=== PATIENT | male | born 1965 | race Caucasian/White ===

== ENCOUNTER 2020-02-05 01:50 | Emergency (ER) | payer MEDICAID ==
[~2020-02-05] VITALS: Ht 185.4 cm; Wt 113.0 kg
[~2020-02-05 01:50] MED LIST: ALBU8.5H8 INH; LOSA100T14 PO; LOSA50TA14 PO; MOME13HF INH; OMEP-110 PO; OMEP40CA42 PO
--- NOTE | 2020-02-05 02:08 | NUR ---
PT REPORTS SEVERE PAIN ON RIGHT GROIN, ALSO NUMBNESS AND TINGLING DOWN LEG AND BOTH FEET.
[2020-02-05] MEDS ORDERED: KETOROLAC 30 MG/1 ML ONE (02:15)
[2020-02-05] MEDS ORDERED: HYDROmorphone 1 MG/ML, 1ML INJ ONE ×2 (02:15→03:55)
[2020-02-05] MEDS ORDERED: ONDANSETRON 2MG/ML, 2ML ONE (02:15)
[2020-02-05 02:22] LABS: MEAN CORPUSCULAR HEMOGLOBIN 28.7 pg (27.5-34.5); MEAN CORPUSCULAR HGB CONC 33.6 g/dL (33.2-36.2); MEAN CORPUSCULAR VOLUME 85.6 fL (81-97); MEAN PLATELET VOLUME 7.3 fL (7.4-10.4); PLATELET COUNT 240 x10^3/uL (130-400); RED BLOOD COUNT 4.81 x10^6/uL (4.38-5.82); RED CELL DISTRIBUTION WIDTH 12.9 % (9.4-14.8)
[2020-02-05] MEDS: HYDROmorphone 1 MG/ML, 1ML INJ IVPush PRN ×2 (02:24→03:58)
[2020-02-05] MEDS ORDERED: SODIUM CHLORIDE FLUSH 10ML SYR IVF ONE (02:30)
[2020-02-05] MEDS ORDERED: KETOROLAC 30 MG/1 ML IVPush ONE (02:30)
[2020-02-05] MEDS ORDERED: ONDANSETRON 2MG/ML, 2ML IVPush ONE (02:30)
--- NOTE | 2020-02-05 02:30 | NUR ---
US AT BEDSIDE.
[2020-02-05 02:34] LABS: ALANINE AMINOTRANSFERASE 30 U/L (12-78); ALBUMIN 3.2 g/dL (3.4-5.0); ANION GAP 7 mmol/L (5-15); CALCIUM 8.5 mg/dL (8.5-10.1); CHLORIDE 104 mmol/L (98-107); CREATININE 1.28 mg/dL (0.7-1.3)
[2020-02-05 02:36] LABS: ALKALINE PHOSPHATASE 81 U/L (45-117); BILIRUBIN,TOTAL 0.8 mg/dL (0.2-1.0)
[2020-02-05 02:58] LABS: BASOPHILS # (AUTO) 0.01 x10^3/uL (0-0.1); BASOPHILS % (AUTO) 0 % (0-1); EOSINOPHILS # (AUTO) 0.06 x10^3/uL (0-0.4); EOSINOPHILS % (AUTO) 1 % (1-7); LYMPHOCYTES # (AUTO) 0.38 x10^3/uL (1-3.4); LYMPHOCYTES % (AUTO) 4 % (22-44); MD SCAN; MONOCYTES # (AUTO) 0.06 x10^3/uL (0.2-0.8); MONOCYTES % (AUTO) 1 % (2-9); NEUTROPHILS # (AUTO) 9.37 x10^3/uL (1.8-6.8); NEUTROPHILS % (AUTO) 95 % (42-75)
[2020-02-05] MEDS ORDERED: OMNIPAQUE 350 MG/ML, 100ML BOTTLE ONE (03:34)
[2020-02-05 03:50] VITALS: BP 143/78
--- NOTE | 2020-02-05 03:51 | NUR ---
PT REPORTS PAIN IN RIGHT LEG IS BACK.
== END 2020-02-05 05:10 | disposition home or self-care (01) ==
LOC: ED 02:31
DX: M79.651 Pain in right thigh (principal); I10 Essential (primary) hypertension; J44.9 Chronic obstructive pulmonary disease, unspecified
CPT/HCPCS: 36415; 75635; 80053; 85025; 93971; 96374; 96375; 96376; 99285; J1170; J1885; J2405; Q9967

== ENCOUNTER 2020-02-09 14:44 | Inpatient (IN) | payer MEDICAID ==
[~2020-02-09] VITALS: Ht 177.8 cm; Wt 104.0 kg
--- NOTE | 2020-02-09 14:44 | NUR ---
OLVIN FROM HOME C/O AMS & LETHARGY X4DAYS WORSENING TODAY WITH LABORED BREATHING PER GF, SHE ALSO REPORTS PT TAKES PAIN MEDS FOR L HIP PAIN R/T RECENT GLF; ORIENTED TO SELF & CITY ONLY; PIV, BG 283, NEB TX X1 BOOM TENDER; PT FOLLOWS COMANDS BUT REQUIRES FREQUENT REORIENTATION/REDIRECTION, TACHYPNEIC & TACHYCARDIC ON ARRIVAL; PT CHANGED INTO GOWN; CARDIAC, NIBP & SPO2 MONITORS IN PLACE.
[2020-02-09] MEDS ORDERED: KETORALAC (15:05)
[2020-02-09] MEDS ORDERED: IBUPROFEN (15:05)
[2020-02-09] MEDS ORDERED: FLEXERIL (15:05)
[2020-02-09] MEDS ORDERED: NORCO (15:05)
[2020-02-09] MEDS ORDERED: SODIUM CHLORIDE FLUSH 10ML SYR IVF ONE (15:30)
[2020-02-09] MEDS ORDERED: SODIUM CHLORIDE 0.9% 1,000ML IVBOLUS ONE ×2 (15:30→19:30)
[2020-02-09 15:59] LABS: MEAN CORPUSCULAR HEMOGLOBIN 28.7 pg (27.5-34.5); MEAN CORPUSCULAR HGB CONC 34.2 g/dL (33.2-36.2); MEAN CORPUSCULAR VOLUME 83.8 fL (81-97); MEAN PLATELET VOLUME 10.8 fL (7.4-10.4); PLATELET COUNT 50 x10^3/uL (130-400); RED BLOOD COUNT 4.98 x10^6/uL (4.38-5.82); RED CELL DISTRIBUTION WIDTH 14.3 % (9.4-14.8)
--- NOTE | 2020-02-09 15:59 | NUR ---
PT UPRIGHT ON GURNWY WITH EYES CLOSED BUT RESTLESS, FOLLOWS COMMANDS WITH MOD AMT REDIRECTION, AUDIBLE EXPIR WHEEZING & OCCAS LOOSE COUGH NOTED, CONTINUES TO BE TACHYPNEIC BUT VSS WITH NO RESP DISTRESS AT THIS TIME, IVF BOLUS INFUSING, AWAITING LAB RESULTS, NO VISITORS AT BS, NO COVID R/O AT THIS TIME PER DR KILPATRICK PT STATES HE'S BEEN RECENTLY TESTED TWICE WITH NEGATIVE RESULTS, COMFORT MEASURES PROVIDED, CALL LIGHT WITHIN REACH.
[2020-02-09 16:04] LABS: MD YES
--- NOTE | 2020-02-09 16:05 | NUR ---
UNABLE TO VOID AT THIS TIME DESPITE ATTEMPT.
[2020-02-09 16:09] LABS: ALBUMIN 1.8 g/dL (3.4-5.0); ANION GAP 17 mmol/L (5-15); CALCIUM 8.1 mg/dL (8.5-10.1); CHLORIDE 106 mmol/L (98-107); CREATININE 4.79 mg/dL (0.7-1.3)
[2020-02-09 16:10] LABS: SALICYLATE LEVEL < 1.7 mg/dL (2.8-20.0)
[2020-02-09 16:12] LABS: ALANINE AMINOTRANSFERASE 24 U/L (12-78); ALKALINE PHOSPHATASE 151 U/L (45-117); BILIRUBIN,TOTAL 1.4 mg/dL (0.2-1.0)
[2020-02-09] MEDS ORDERED: CEFTRIAXONE PMX 1GM/50ML 50 ML IVPB ONE (16:30)
[2020-02-09] MEDS ORDERED: AZITHROMYCIN 500 MG in SODIUM CHLORIDE 0.9% 250 ML IVPB ONE (16:30)
[2020-02-09] MEDS ORDERED: CEFTRIAXONE PMX 1GM/50ML 50 ML ONE (16:30)
[2020-02-09 16:45] LABS: BAND#(MANUAL) 3.73 x10^3/uL; BANDS%(MANUAL) 16 % (0-7); LYMPHS% (MANUAL) 6 % (22-44); METAMYELOCYTES# (MANUAL) 0.23 x10^3/uL (0-0); METAMYELOCYTES% (MANUAL) 1 % (0-1); MONOS#(MANUAL) 0.23 x10^3/uL (0.3-2.7); MONOS% (MANUAL) 1 % (2-9); MYELOCYTES# (MANUAL) 0.23 x10^3/uL (0-0); MYELOCYTES% (MANUAL) 1 % (0-0); NRBC % (MANUAL) 1 % (0-1); REACTIVE LYMPHS # (MANUAL) 0.47 x10^3/uL (0-0); REACTIVE LYMPHS % (MANUAL) 2 % (0-0); SEG#(MANUAL) 17.01 x10^3/uL (1.8-6.8); SEGS% (MANUAL) 73 % (42-75)
[2020-02-09 16:47] LABS: <RBC MORPHOLOGY> NORMAL
[2020-02-09 16:52] LABS: <PLATELET ESTIMATE> DECREASED; TOXIC GRAN 1+
[2020-02-09 16:54] LABS: <PLT MORPHOLOGY> NORMAL PLT MORPH
[2020-02-09] MEDS ORDERED: SODIUM BICARB 8.4%, 50ML SYRINGE IVPush ONE (17:00)
[2020-02-09] MEDS ORDERED: CALCIUM GLUCONATE 4.6 MEQ in SODIUM CHLORIDE 0.9% 90 ML IV ONE (17:00)
[2020-02-09 17:10] LABS: AMPHETAMINE SCREEN, URINE Negative (Negative); BARBITURATE SCREEN, URINE Negative (Negative); BENZODIAZEPINE SCREEN, URINE Negative (Negative); CANNABINOID SCREEN, URINE Negative (Negative); COCAINE SCREEN, URINE Negative (Negative); METHADONE SCREEN, URINE Negative (Negative); OPIATE SCREEN, URINE Positive (Negative)
[2020-02-09 17:42] LABS: INTERNATIONAL NORMALIZED RATIO 1.02 (0.93-1.1); PROTHROMBIN TIME 10.8 Seconds (9.6-11.5)
--- NOTE | 2020-02-09 17:55 | NUR ---
Pt to be admitted to CCU, room 546. Report called to Keira. Pt to CT then transfer to unit.
[2020-02-09] MEDS ORDERED: AMIODARONE 50 MG/ML, 3ML ONE (18:03)
[2020-02-09 18:05] LABS: HCT (SEDRATE) 42.1 % (39.2-51.8)
[2020-02-09 18:08] LABS: TROPONIN I 0.036 ng/mL (0.000-0.045)
[2020-02-09 18:09] LABS: D-DIMER (DIC) 3.69 ug/mlFEU (0.00-0.52); PROTIME 10.7 Seconds (9.6-11.5)
[2020-02-09] MEDS ORDERED: NOREPINEPHRINE 8 MG in SODIUM CHLORIDE 0.9% 242 ML IV PRN ×2 (18:11→19:00)
[2020-02-09] MEDS ORDERED: PROPOFOL 100 ML IV PRN (18:11)
[2020-02-09] MEDS ORDERED: SODIUM BICARBONATE 1 MEQ/ML, 50ML VIAL ONE (18:20)
[2020-02-09] MEDS ORDERED: MIDAZOLAM 1 MG/ML, 2ML IVPush PRN (18:30)
[2020-02-09] MEDS ORDERED: BISACODYL 10 MG SUPP PR PRN (18:30)
[2020-02-09] MEDS ORDERED: DEXTROSE 4 GM TAB.CHEW PO PRN (18:30)
[2020-02-09] MEDS ORDERED: DEXTROSE 50%, 50ML SYRINGE IVPush PRN (18:30)
[2020-02-09] MEDS: ALBUTEROL/IPRATROPIUM 2.5MG/0.5MG, 3 ML INLINE SCH ×2 (18:30→22:36)
[2020-02-09] MEDS ORDERED: SENNA 176 MG/5 ML ORAL SOL NG PRN (18:30)
[2020-02-09] MEDS ORDERED: ACETAMINOPHEN 650 MG SUPP PR PRN (18:30)
[2020-02-09] MEDS ORDERED: GLUCAGON 1 MG IM PRN (18:30)
[2020-02-09] MEDS ORDERED: SENNA/DOCUSATE TABLET NG PRN (18:30)
[2020-02-09] MEDS ORDERED: LIDOCAINE-MPF 1%, 2ML ENDO PRN (18:30)
[2020-02-09] MEDS ORDERED: PHARMACY MAY ADJ FOR RENAL FX MC SCH (18:30)
[2020-02-09 18:39] LABS: MICROSCOPIC INDICATED
[2020-02-09] MEDS ORDERED: FILTER 0.22 MICRON FOR AMIODARONE IV PRN (19:00)
[2020-02-09] MEDS ORDERED: AMIODARONE 150 MG in DEXTROSE 5% 100 ML IV ONE ×3 (19:00→22:00)
[2020-02-09] MEDS: SODIUM BICARBONATE 8.4% 150 MEQ in DEXTROSE 5% 1,000 ML IV SCH (19:25)
[2020-02-09] MEDS: AMIODARONE 450 MG in DEXTROSE 5% 241 ML IV PRN (19:27)
[2020-02-09] MEDS ORDERED: FILTER 0.22 MICRON IV PRN (19:30)
[2020-02-09] MEDS ORDERED: ETOMIDATE 20 MG/10 ML IVPush ONE (19:30)
[2020-02-09] MEDS ORDERED: MIDAZOLAM 1 MG/ML, 2ML IVPush ONE (19:30)
[2020-02-09] MEDS ORDERED: SODIUM BICARBONATE 1 MEQ/ML, 50ML VIAL IVPush ONE (19:30)
[2020-02-09] MEDS ORDERED: IPRATROPIUM 0.5 MG/2.5 ML INHA ONE (20:51)
[2020-02-09] MEDS: ACETAMINOPHEN 325 MG TABLET PO PRN (21:55)
[2020-02-09] MEDS ORDERED: MIDAZOLAM IN 0.9 % SOD.CHLORID 100 ML IV PRN (22:00)
[2020-02-09] MEDS ORDERED: MIDAZOLAM IV PRN (22:00)
[2020-02-09] MEDS ORDERED: SOD CHLORID IV PRN (22:00)
[2020-02-09] MEDS: METRONIDAZOLE PMX 500MG/100ML 100 ML IV SCH (22:02)
[2020-02-09] MEDS: SODIUM CHLORIDE FLUSH 10ML SYR IVF SCH (22:03)
[2020-02-09] MEDS: INSULIN LISPRO 100 UNITS/ML, PEN SQ-INSULIN SCH (22:08)
[2020-02-10 00:25] LABS: TROPONIN I 0.055 ng/mL (0.000-0.045)
[2020-02-10 00:26] LABS: MEAN CORPUSCULAR HEMOGLOBIN 28.4 pg (27.5-34.5); MEAN CORPUSCULAR HGB CONC 33.6 g/dL (33.2-36.2); MEAN CORPUSCULAR VOLUME 84.5 fL (81-97); MEAN PLATELET VOLUME 10.3 fL (7.4-10.4); RED BLOOD COUNT 4.91 x10^6/uL (4.38-5.82); RED CELL DISTRIBUTION WIDTH 14.3 % (9.4-14.8)
[2020-02-10 00:28] LABS: PLATELET COUNT 37 x10^3/uL (130-400)
[2020-02-10 00:54] LABS: ALANINE AMINOTRANSFERASE 25 U/L (12-78); ALBUMIN 1.7 g/dL (3.4-5.0); ANION GAP 12 mmol/L (5-15); CALCIUM 7.6 mg/dL (8.5-10.1); CHLORIDE 107 mmol/L (98-107); CREATININE 4.01 mg/dL (0.7-1.3)
[2020-02-10 00:56] LABS: ALKALINE PHOSPHATASE 206 U/L (45-117); BILIRUBIN,TOTAL 1.7 mg/dL (0.2-1.0); TOTAL PROTEIN 5.4 g/dL (6.4-8.2)
[2020-02-10 00:57] LABS: MD YES
[2020-02-10 00:59] LABS: <PLATELET ESTIMATE> DECREASED; <RBC MORPHOLOGY> NORMAL; BAND#(MANUAL) 0.98 x10^3/uL; BANDS%(MANUAL) 4 % (0-7); LYMPH#(MANUAL) 1.22 x10^3/uL (1-3.4); LYMPHS% (MANUAL) 5 % (22-44); NRBC % (MANUAL) 5 % (0-1); SEGS% (MANUAL) 91 % (42-75)
[2020-02-10 01:00] LABS: <PLT MORPHOLOGY> NORMAL PLT MORPH
[2020-02-10] MEDS ORDERED: PIPERACILLIN/TAZO/PMX 3.375GM 50 ML IV ONE (01:30)
[2020-02-10] MEDS: AMIODARONE 450 MG in DEXTROSE 5% 241 ML IV PRN ×2 (02:10→14:51)
[2020-02-10] MEDS: ACETAMINOPHEN 325 MG TABLET PO PRN ×2 (02:16→18:10)
[2020-02-10 02:25] VITALS: BP 94/48
[2020-02-10] MEDS: ALBUTEROL/IPRATROPIUM 2.5MG/0.5MG, 3 ML INLINE SCH ×6 (02:30→22:15)
[2020-02-10] MEDS: METRONIDAZOLE PMX 500MG/100ML 100 ML IV SCH (02:46)
[2020-02-10] MEDS: SODIUM BICARBONATE 8.4% 150 MEQ in DEXTROSE 5% 1,000 ML IV SCH ×2 (03:12→12:17)
[2020-02-10 05:10] LABS: ALANINE AMINOTRANSFERASE 26 U/L (12-78); ALBUMIN 1.5 g/dL (3.4-5.0); ANION GAP 15 mmol/L (5-15); CALCIUM 7.2 mg/dL (8.5-10.1); CHLORIDE 105 mmol/L (98-107); CREATININE 4.18 mg/dL (0.7-1.3); MEAN CORPUSCULAR HEMOGLOBIN 28.5 pg (27.5-34.5); RED BLOOD COUNT 4.66 x10^6/uL (4.38-5.82); RED CELL DISTRIBUTION WIDTH 14.8 % (9.4-14.8)
[2020-02-10 05:15] LABS: ALKALINE PHOSPHATASE 139 U/L (45-117); BILIRUBIN,TOTAL 2.4 mg/dL (0.2-1.0); TOTAL PROTEIN 5.1 g/dL (6.4-8.2); TROPONIN I 0.133 ng/mL (0.000-0.045)
[2020-02-10 05:59] LABS: MD YES; PLATELET COUNT 42 x10^3/uL (130-400)
[2020-02-10 06:00] LABS: BAND#(MANUAL) 1.15 x10^3/uL; BANDS%(MANUAL) 4 % (0-7)
[2020-02-10 06:01] LABS: TOXIC GRAN 1+
[2020-02-10 06:02] LABS: <PLATELET ESTIMATE> DECREASED; <RBC MORPHOLOGY> NORMAL; LARGE PLATELETS 1+; LYMPH#(MANUAL) 1.72 x10^3/uL (1-3.4); LYMPHS% (MANUAL) 6 % (22-44); MONOS#(MANUAL) 1.44 x10^3/uL (0.3-2.7); MONOS% (MANUAL) 5 % (2-9); SEGS% (MANUAL) 85 % (42-75)
[2020-02-10] MEDS: INSULIN LISPRO 100 UNITS/ML, PEN SQ-INSULIN SCH ×6 (06:27→22:47)
[2020-02-10] MEDS ORDERED: PIPERACILLIN/TAZO(ZOSYN) 2.25 GM in NS 50 ML IVPB SCH (08:30)
[2020-02-10] MEDS ORDERED: PIPERACILLIN/TAZO 0.75 GM in SODIUM CHLORIDE 0.9% 50 ML IV SCH (08:30)
[2020-02-10] MEDS: SODIUM CHLORIDE FLUSH 10ML SYR IVF SCH ×2 (08:31→21:18)
[2020-02-10] MEDS: SENNA/DOCUSATE TABLET PO SCH (08:31)
[2020-02-10] MEDS: PANTOPRAZOLE 40 MG IV IVPush SCH (08:31)
[2020-02-10] MEDS ORDERED: AZITHROMYCIN 500 MG in SODIUM CHLORIDE 0.9% 250 ML IV SCH (09:00)
[2020-02-10] MEDS: ALBUMIN HUMAN 25% 100 ML IV SCH ×3 (10:48→22:46)
--- NOTE | 2020-02-10 10:51 | NUR ---
TF GOAL: NEPRO @ 55ML/HR
[2020-02-10 11:16] LABS: TROPONIN I 0.071 ng/mL (0.000-0.045)
[2020-02-10] MEDS: FENTANYL PF 100 MCG/2ML IVPush PRN (12:31)
[2020-02-10] MEDS ORDERED: CEFTRIAXONE PMX 1GM/50ML 50 ML IV SCH (16:00)
[2020-02-10] MEDS ORDERED: HYDROCORTISONE 100 MG INJ. IVPush ONE (17:00)
[2020-02-10] MEDS ORDERED: HYDROCORTISONE 100 MG INJ. ONE (17:02)
[2020-02-10] MEDS ORDERED: VASOPRESSIN 20 UNIT in SODIUM CHLORIDE 0.9% 99 ML IV PRN (17:30)
[2020-02-10] MEDS ORDERED: OMNIPAQUE 350 MG/ML, 100ML BOTTLE ONE (18:05)
[2020-02-10] MEDS: PIPERACILLIN/TAZO(ZOSYN) 2.25 GM in NS 50 ML IVPB SCH (18:06)
[2020-02-10] MEDS: AZITHROMYCIN 500 MG in SODIUM CHLORIDE 0.9% 250 ML IV SCH (18:33)
[2020-02-10] MEDS: methylPREDNISolone SOD SUCC 125 MG/2 ML IV SCH (18:33)
[2020-02-10] MEDS ORDERED: IPRATROPIUM 0.5 MG/2.5 ML INHA ONE (18:41)
[2020-02-10 18:42] LABS: ALANINE AMINOTRANSFERASE 41 U/L (12-78); ALBUMIN 2.4 g/dL (3.4-5.0); ANION GAP 12 mmol/L (5-15); CALCIUM 7.6 mg/dL (8.5-10.1); CHLORIDE 103 mmol/L (98-107); CREATININE 3.16 mg/dL (0.7-1.3)
[2020-02-10 18:44] LABS: ALKALINE PHOSPHATASE 164 U/L (45-117); BILIRUBIN,TOTAL 2.6 mg/dL (0.2-1.0); TOTAL PROTEIN 5.6 g/dL (6.4-8.2)
[2020-02-10 18:58] LABS: MD YES; MEAN CORPUSCULAR HEMOGLOBIN 28.4 pg (27.5-34.5); MEAN CORPUSCULAR HGB CONC 33.7 g/dL (33.2-36.2); MEAN CORPUSCULAR VOLUME 84.2 fL (81-97); MEAN PLATELET VOLUME 9.7 fL (7.4-10.4); RED BLOOD COUNT 3.93 x10^6/uL (4.38-5.82); RED CELL DISTRIBUTION WIDTH 14.5 % (9.4-14.8)
[2020-02-10 19:00] LABS: PLATELET COUNT 37 x10^3/uL (130-400)
[2020-02-10] MEDS ORDERED: IPRATROPIUM 0.5 MG/2.5 ML INHA NPPB ONE (19:00)
[2020-02-10 19:03] LABS: BAND#(MANUAL) 3.47 x10^3/uL; BANDS%(MANUAL) 11 % (0-7); LYMPH#(MANUAL) 1.26 x10^3/uL (1-3.4); LYMPHS% (MANUAL) 4 % (22-44); MONOS#(MANUAL) 0.63 x10^3/uL (0.3-2.7); MONOS% (MANUAL) 2 % (2-9); NRBC % (MANUAL) 1 % (0-1); SEG#(MANUAL) 26.15 x10^3/uL (1.8-6.8); SEGS% (MANUAL) 83 % (42-75)
[2020-02-10 19:04] LABS: <PLATELET ESTIMATE> DECREASED; ANISOCYTOSIS 1+; POLYCHROMASIA 1+
[2020-02-10 19:05] LABS: <PLT MORPHOLOGY> NORMAL PLT MORPH; TOXIC GRAN 1+
[2020-02-10] MEDS ORDERED: HEPARIN 5,000 UNITS/ML, 1ML IV PRN (21:30)
[2020-02-10] MEDS ORDERED: HEPARIN 25,000 UNITS/250ML PMX 250 ML IV PRN (21:30)
[2020-02-10] MEDS ORDERED: HEPARIN 5,000 UNITS/ML, 1ML IV ONE (21:30)
[2020-02-11] MEDS: PIPERACILLIN/TAZO(ZOSYN) 2.25 GM in NS 50 ML IVPB SCH ×3 (00:40→18:25)
[2020-02-11] MEDS: methylPREDNISolone SOD SUCC 125 MG/2 ML IV SCH ×4 (00:42→18:36)
[2020-02-11] MEDS: ALBUTEROL/IPRATROPIUM 2.5MG/0.5MG, 3 ML INLINE SCH ×6 (02:15→22:21)
[2020-02-11] MEDS: FENTANYL PF 100 MCG/2ML IVPush PRN ×3 (02:39→14:34)
[2020-02-11 04:34] LABS: ALBUMIN 2.5 g/dL (3.4-5.0); ANION GAP 9 mmol/L (5-15); CALCIUM 7.5 mg/dL (8.5-10.1); CHLORIDE 107 mmol/L (98-107)
[2020-02-11 04:38] LABS: ALANINE AMINOTRANSFERASE 46 U/L (12-78); ALKALINE PHOSPHATASE 109 U/L (45-117); BILIRUBIN,TOTAL 2.2 mg/dL (0.2-1.0); TOTAL PROTEIN 5.8 g/dL (6.4-8.2)
[2020-02-11] MEDS: ALBUMIN HUMAN 25% 100 ML IV SCH (04:42)
[2020-02-11] MEDS: INSULIN LISPRO 100 UNITS/ML, PEN SQ-INSULIN SCH ×4 (04:43→12:00)
[2020-02-11 04:44] LABS: MEAN CORPUSCULAR HEMOGLOBIN 28.3 pg (27.5-34.5); MEAN CORPUSCULAR HGB CONC 33.8 g/dL (33.2-36.2); MEAN CORPUSCULAR VOLUME 83.6 fL (81-97); RED BLOOD COUNT 3.44 x10^6/uL (4.38-5.82); RED CELL DISTRIBUTION WIDTH 14.5 % (9.4-14.8)
[2020-02-11 05:47] LABS: MD YES
[2020-02-11 05:48] LABS: MEAN PLATELET VOLUME 9.6 fL (7.4-10.4)
[2020-02-11 05:49] LABS: PLATELET COUNT 47 x10^3/uL (130-400)
[2020-02-11 05:51] LABS: <RBC MORPHOLOGY> NORMAL; BAND#(MANUAL) 0.43 x10^3/uL; BANDS%(MANUAL) 2 % (0-7); LYMPH#(MANUAL) 2.14 x10^3/uL (1-3.4); LYMPHS% (MANUAL) 10 % (22-44); METAMYELOCYTES# (MANUAL) 0.21 x10^3/uL (0-0); METAMYELOCYTES% (MANUAL) 1 % (0-1); MONOS#(MANUAL) 0.21 x10^3/uL (0.3-2.7); MONOS% (MANUAL) 1 % (2-9); SEGS% (MANUAL) 86 % (42-75)
[2020-02-11 05:52] LABS: <PLATELET ESTIMATE> DECREASED; <PLT MORPHOLOGY> NORMAL PLT MORPH
[2020-02-11] MEDS: AMIODARONE 450 MG in DEXTROSE 5% 241 ML IV PRN ×2 (06:14→23:06)
[2020-02-11] MEDS: PANTOPRAZOLE 40 MG IV IVPush SCH (07:30)
[2020-02-11] MEDS: SODIUM CHLORIDE FLUSH 10ML SYR IVF SCH ×2 (08:19→21:12)
[2020-02-11] MEDS: SENNA/DOCUSATE TABLET PO SCH (08:20)
[2020-02-11] MEDS ORDERED: INSULIN GLARGINE 100 UNITS/ML, PEN SQ-INSULIN SCH (09:00)
[2020-02-11] MEDS ORDERED: RASBURICASE 6 MG in SODIUM CHLORIDE 0.9% 50 ML IV SCH (10:00)
[2020-02-11] MEDS ORDERED: RASBURICASE 6 MG in SODIUM CHLORIDE 0.9% 50 ML IV ONE (10:30)
[2020-02-11] MEDS ORDERED: LIDOCAINE 1%, 10ML ONE (11:00)
[2020-02-11] MEDS ORDERED: GADOTERATE 10 MMOL/20 ML SYR ONE (11:13)
[2020-02-11] MEDS ORDERED: VISIPAQUE 270 MG/ML, 50ML BOTTLE ONE (11:40)
[2020-02-11] MEDS ORDERED: INSULIN INFUSION FOR ICU PROTOCOL XX PRN (15:00)
[2020-02-11] MEDS: REGULAR INSULIN 100 UNITS in SODIUM CHLORIDE 0.9% 99 ML IV PRN (15:53)
[2020-02-11] MEDS ORDERED: MIDAZOLAM 1 MG/ML, 2ML ONE (16:46)
[2020-02-11] MEDS ORDERED: FENTANYL PF 100 MCG/2ML ONE (18:56)
[2020-02-11] MEDS: AZITHROMYCIN 500 MG in SODIUM CHLORIDE 0.9% 250 ML IV SCH (21:12)
[2020-02-12] MEDS: methylPREDNISolone SOD SUCC 125 MG/2 ML IV SCH ×2 (00:47→06:09)
[2020-02-12] MEDS: REGULAR INSULIN 100 UNITS in SODIUM CHLORIDE 0.9% 99 ML IV PRN (02:30)
[2020-02-12] MEDS: PIPERACILLIN/TAZO(ZOSYN) 2.25 GM in NS 50 ML IVPB SCH ×3 (02:34→20:32)
[2020-02-12] MEDS: ALBUTEROL/IPRATROPIUM 2.5MG/0.5MG, 3 ML INLINE SCH ×6 (02:43→22:35)
[2020-02-12 04:47] LABS: MEAN CORPUSCULAR HEMOGLOBIN 28.3 pg (27.5-34.5); MEAN CORPUSCULAR HGB CONC 33.4 g/dL (33.2-36.2); MEAN CORPUSCULAR VOLUME 84.5 fL (81-97); MEAN PLATELET VOLUME 8.9 fL (7.4-10.4); PLATELET COUNT 70 x10^3/uL (130-400); RED CELL DISTRIBUTION WIDTH 14.6 % (9.4-14.8)
[2020-02-12 04:50] LABS: ALANINE AMINOTRANSFERASE 48 U/L (12-78); ALBUMIN 2.4 g/dL (3.4-5.0); ANION GAP 11 mmol/L (5-15); CALCIUM 7.8 mg/dL (8.5-10.1); CHLORIDE 109 mmol/L (98-107); CREATININE 3.03 mg/dL (0.7-1.3); TRIGLYCERIDES 396 mg/dL (50-200)
[2020-02-12 04:53] LABS: ALKALINE PHOSPHATASE 108 U/L (45-117); BILIRUBIN,TOTAL 1.6 mg/dL (0.2-1.0); TOTAL PROTEIN 5.9 g/dL (6.4-8.2)
[2020-02-12 05:30] LABS: MD YES
[2020-02-12 05:33] LABS: BAND#(MANUAL) 0.88 x10^3/uL; BANDS%(MANUAL) 4 % (0-7); LYMPH#(MANUAL) 1.77 x10^3/uL (1-3.4); LYMPHS% (MANUAL) 8 % (22-44); METAMYELOCYTES# (MANUAL) 0.44 x10^3/uL (0-0); METAMYELOCYTES% (MANUAL) 2 % (0-1); MONOS#(MANUAL) 0.88 x10^3/uL (0.3-2.7); MONOS% (MANUAL) 4 % (2-9); MYELOCYTES# (MANUAL) 0.22 x10^3/uL (0-0); MYELOCYTES% (MANUAL) 1 % (0-0); NRBC % (MANUAL) 2 % (0-1); SEGS% (MANUAL) 81 % (42-75)
[2020-02-12 05:34] LABS: ANISOCYTOSIS 1+
[2020-02-12 05:35] LABS: POLYCHROMASIA 1+
[2020-02-12 05:36] LABS: <PLATELET ESTIMATE> DECREASED; <PLT MORPHOLOGY> NORMAL PLT MORPH; TOXIC GRAN 1+
[2020-02-12] MEDS: PANTOPRAZOLE 40 MG IV IVPush SCH (07:42)
[2020-02-12] MEDS: SODIUM CHLORIDE FLUSH 10ML SYR IVF SCH ×2 (07:43→21:05)
[2020-02-12] MEDS: SENNA/DOCUSATE TABLET PO SCH (07:43)
[2020-02-12] MEDS: FENTANYL PF 100 MCG/2ML IVPush PRN ×3 (09:57→19:21)
[2020-02-12] MEDS ORDERED: methylPREDNISolone SOD SUCC 125 MG/2 ML ONE (10:11)
[2020-02-12] MEDS: AMIODARONE 200 MG TABLET PO SCH ×2 (10:14→21:04)
[2020-02-12] MEDS ORDERED: methylPREDNISolone SOD SUCC 125 MG/2 ML IVPush ONE (10:30)
[2020-02-12] MEDS: DEXMEDETOMIDINE 400 MCG in SODIUM CHLORIDE 0.9% 96 ML IV PRN (11:05)
[2020-02-12] MEDS: INSULIN GLARGINE 100 UNITS/ML, PEN SQ-INSULIN SCH ×2 (16:03→21:01)
[2020-02-12] MEDS: INSULIN LISPRO 100 UNITS/ML, PEN SQ-INSULIN SCH ×2 (16:07→21:01)
[2020-02-12] MEDS: methylPREDNISolone SOD SUCC 40 MG/ML IV SCH ×2 (16:11→21:18)
[2020-02-12] MEDS: ACETAMINOPHEN 325 MG TABLET PO PRN (16:13)
[2020-02-12] MEDS: AZITHROMYCIN 500 MG in SODIUM CHLORIDE 0.9% 250 ML IV SCH (20:55)
[2020-02-13] MEDS: DEXMEDETOMIDINE 400 MCG in SODIUM CHLORIDE 0.9% 96 ML IV PRN ×3 (00:15→09:31)
[2020-02-13] MEDS: INSULIN LISPRO 100 UNITS/ML, PEN SQ-INSULIN SCH ×4 (03:06→21:00)
[2020-02-13 03:19] LABS: MD YES; MEAN CORPUSCULAR HEMOGLOBIN 28.7 pg (27.5-34.5); MEAN CORPUSCULAR HGB CONC 34.1 g/dL (33.2-36.2); MEAN CORPUSCULAR VOLUME 84.3 fL (81-97); MEAN PLATELET VOLUME 9.2 fL (7.4-10.4); PLATELET COUNT 80 x10^3/uL (130-400); RED BLOOD COUNT 2.88 x10^6/uL (4.38-5.82); RED CELL DISTRIBUTION WIDTH 14.5 % (9.4-14.8)
[2020-02-13 03:30] LABS: ANION GAP 10 mmol/L (5-15); CALCIUM 7.6 mg/dL (8.5-10.1); CHLORIDE 106 mmol/L (98-107)
[2020-02-13] MEDS: ALBUTEROL/IPRATROPIUM 2.5MG/0.5MG, 3 ML INLINE SCH ×5 (03:30→19:25)
[2020-02-13 03:33] LABS: ALANINE AMINOTRANSFERASE 44 U/L (12-78); ALKALINE PHOSPHATASE 90 U/L (45-117); ANISOCYTOSIS 1+; BAND#(MANUAL) 0.39 x10^3/uL; BANDS%(MANUAL) 2 % (0-7); BILIRUBIN,TOTAL 1.2 mg/dL (0.2-1.0); CREATININE 3.34 mg/dL (0.7-1.3); LYMPH#(MANUAL) 1.16 x10^3/uL (1-3.4); LYMPHS% (MANUAL) 6 % (22-44); MONOS#(MANUAL) 0.39 x10^3/uL (0.3-2.7); MONOS% (MANUAL) 2 % (2-9); POLYCHROMASIA 1+; SEG#(MANUAL) 17.37 x10^3/uL (1.8-6.8); SEGS% (MANUAL) 90 % (42-75); TOTAL PROTEIN 5.1 g/dL (6.4-8.2)
[2020-02-13 03:34] LABS: <PLATELET ESTIMATE> DECREASED; <PLT MORPHOLOGY> NORMAL PLT MORPH; TOXIC GRAN 1+
[2020-02-13] MEDS: PIPERACILLIN/TAZO(ZOSYN) 2.25 GM in NS 50 ML IVPB SCH ×3 (03:42→21:31)
[2020-02-13] MEDS: methylPREDNISolone SOD SUCC 40 MG/ML IV SCH ×3 (05:51→21:30)
[2020-02-13] MEDS: SENNA/DOCUSATE TABLET PO SCH (07:39)
[2020-02-13] MEDS: SODIUM CHLORIDE FLUSH 10ML SYR IVF SCH ×2 (09:00→20:28)
[2020-02-13] MEDS: PANTOPRAZOLE 40 MG IV IVPush SCH (09:15)
[2020-02-13] MEDS: AMIODARONE 200 MG TABLET PO SCH ×2 (09:16→20:28)
[2020-02-13] MEDS: INSULIN GLARGINE 100 UNITS/ML, PEN SQ-INSULIN SCH ×2 (09:19→21:30)
[2020-02-13] MEDS ORDERED: PIPERACILLIN/TAZO 0.75 GM in SODIUM CHLORIDE 0.9% 50 ML IV SCH (09:30)
[2020-02-13] MEDS: FENTANYL PF 100 MCG/2ML IVPush PRN (09:31)
[2020-02-13] MEDS ORDERED: DEXMEDETOMIDINE 1,000 MCG in SODIUM CHLORIDE 0.9% 240 ML IV PRN (12:00)
[2020-02-14] MEDS: ALBUTEROL/IPRATROPIUM 2.5MG/0.5MG, 3 ML INLINE SCH ×3 (00:20→07:12)
[2020-02-14] MEDS: FENTANYL PF 100 MCG/2ML IVPush PRN (00:30)
[2020-02-14 04:23] LABS: MEAN CORPUSCULAR HEMOGLOBIN 28.6 pg (27.5-34.5); MEAN CORPUSCULAR VOLUME 84.1 fL (81-97); PLATELET COUNT 128 x10^3/uL (130-400); RED BLOOD COUNT 2.93 x10^6/uL (4.38-5.82); RED CELL DISTRIBUTION WIDTH 14.1 % (9.4-14.8)
[2020-02-14 04:34] LABS: ALANINE AMINOTRANSFERASE 40 U/L (12-78); ALBUMIN 2.1 g/dL (3.4-5.0); ANION GAP 11 mmol/L (5-15); CALCIUM 7.6 mg/dL (8.5-10.1); CHLORIDE 105 mmol/L (98-107); CREATININE 2.52 mg/dL (0.7-1.3)
[2020-02-14 04:36] LABS: ALKALINE PHOSPHATASE 77 U/L (45-117); BILIRUBIN,TOTAL 1.3 mg/dL (0.2-1.0); TOTAL PROTEIN 5.5 g/dL (6.4-8.2)
[2020-02-14 05:42] LABS: MD YES
[2020-02-14 05:43] LABS: BAND#(MANUAL) 0.23 x10^3/uL; BANDS%(MANUAL) 1 % (0-7); LYMPH#(MANUAL) 0.45 x10^3/uL (1-3.4); LYMPHS% (MANUAL) 2 % (22-44); MONOS#(MANUAL) 0.23 x10^3/uL (0.3-2.7); MONOS% (MANUAL) 1 % (2-9); SEGS% (MANUAL) 96 % (42-75)
[2020-02-14 05:44] LABS: <PLATELET ESTIMATE> DECREASED; <PLT MORPHOLOGY> NORMAL PLT MORPH; PMNS WITH VACUOLES 1+; POLYCHROMASIA 1+; TOXIC GRAN 1+
[2020-02-14] MEDS: PIPERACILLIN/TAZO(ZOSYN) 2.25 GM in NS 50 ML IVPB SCH ×3 (05:58→22:32)
[2020-02-14] MEDS: methylPREDNISolone SOD SUCC 40 MG/ML IV SCH (05:58)
[2020-02-14] MEDS: INSULIN LISPRO 100 UNITS/ML, PEN SQ-INSULIN SCH ×4 (06:17→21:00)
[2020-02-14] MEDS ORDERED: FENTANYL PF 100 MCG/2ML ONE (07:50)
[2020-02-14] MEDS: SODIUM CHLORIDE FLUSH 10ML SYR IVF SCH ×2 (07:54→22:30)
[2020-02-14] MEDS: PANTOPRAZOLE 40 MG IV IVPush SCH (07:54)
[2020-02-14] MEDS ORDERED: FENTANYL PF 100 MCG/2ML IV ONE (08:00)
[2020-02-14] MEDS: AMIODARONE 200 MG TABLET PO SCH (08:04)
[2020-02-14] MEDS: SENNA/DOCUSATE TABLET PO SCH (08:05)
[2020-02-14] MEDS: OXYcodone IR 5MG TABLET PO PRN ×3 (08:05→18:24)
[2020-02-14] MEDS ORDERED: INSULIN GLARGINE 100 UNITS/ML, PEN SQ-INSULIN SCH (09:00)
[2020-02-14] MEDS: ACETAMINOPHEN 325 MG TABLET PO PRN ×2 (13:35→18:24)
[2020-02-14 14:00] VITALS: BP 137/65
[2020-02-14] MEDS: ALBUTEROL/IPRATROPIUM 2.5MG/0.5MG, 3 ML NPPB SCH ×2 (14:50→20:39)
[2020-02-14] MEDS ORDERED: MORPHINE SULFATE 4 MG/ML, 1ML ONE (14:51)
[2020-02-14] MEDS: MORPHINE SULFATE 4 MG/ML, 1ML IVPush PRN ×2 (14:56→22:28)
[2020-02-14] MEDS ORDERED: methylPREDNISolone SOD SUCC 40 MG/ML IV SCH (21:00)
[2020-02-14 22:00] VITALS: BP 118/74
[2020-02-14] MEDS: INSULIN GLARGINE 100 UNITS/ML, PEN SQ-INSULIN SCH (22:29)
[2020-02-15 02:39] VITALS: BP 120/82
[2020-02-15] MEDS: ALBUTEROL/IPRATROPIUM 2.5MG/0.5MG, 3 ML NPPB SCH ×4 (03:50→20:11)
[2020-02-15 04:46] VITALS: BP 117/69
[2020-02-15 05:41] LABS: ANION GAP 11 mmol/L (5-15); CALCIUM 7.9 mg/dL (8.5-10.1); CHLORIDE 102 mmol/L (98-107); CREATININE 1.58 mg/dL (0.7-1.3)
[2020-02-15 05:47] LABS: MEAN CORPUSCULAR HEMOGLOBIN 28.6 pg (27.5-34.5); MEAN CORPUSCULAR HGB CONC 33.8 g/dL (33.2-36.2); MEAN CORPUSCULAR VOLUME 84.7 fL (81-97); MEAN PLATELET VOLUME 9.2 fL (7.4-10.4); PLATELET COUNT 183 x10^3/uL (130-400); RED BLOOD COUNT 3.19 x10^6/uL (4.38-5.82); RED CELL DISTRIBUTION WIDTH 13.5 % (9.4-14.8)
[2020-02-15] MEDS: MORPHINE SULFATE 4 MG/ML, 1ML IVPush PRN ×2 (05:51→20:49)
[2020-02-15] MEDS: PIPERACILLIN/TAZO(ZOSYN) 2.25 GM in NS 50 ML IVPB SCH ×3 (05:51→22:39)
[2020-02-15 06:31] VITALS: BP 122/84
[2020-02-15] MEDS: INSULIN LISPRO 100 UNITS/ML, PEN SQ-INSULIN SCH ×4 (07:00→20:48)
[2020-02-15 07:07] LABS: MD YES
[2020-02-15 07:09] LABS: LYMPHS% (MANUAL) 3 % (22-44); METAMYELOCYTES# (MANUAL) 0.23 x10^3/uL (0-0); METAMYELOCYTES% (MANUAL) 1 % (0-1); MONOS#(MANUAL) 0.46 x10^3/uL (0.3-2.7); MONOS% (MANUAL) 2 % (2-9); SEG#(MANUAL) 21.81 x10^3/uL (1.8-6.8); SEGS% (MANUAL) 94 % (42-75); TOXIC GRAN 1+
[2020-02-15 07:10] LABS: POLYCHROMASIA 1+
[2020-02-15 07:12] LABS: <PLATELET ESTIMATE> ADEQUATE; <PLT MORPHOLOGY> NORMAL PLT MORPH
[2020-02-15] MEDS: AMIODARONE 200 MG TABLET PO SCH (08:57)
[2020-02-15] MEDS: PANTOPRAZOLE 40 MG IV IVPush SCH (08:57)
[2020-02-15] MEDS: INSULIN GLARGINE 100 UNITS/ML, PEN SQ-INSULIN SCH ×2 (08:58→20:49)
[2020-02-15] MEDS: SODIUM CHLORIDE FLUSH 10ML SYR IVF SCH ×2 (08:58→20:47)
[2020-02-15] MEDS: OXYcodone IR 5MG TABLET PO PRN (09:36)
[2020-02-15] MEDS: SENNA/DOCUSATE TABLET PO SCH (10:55)
[2020-02-15 18:29] VITALS: BP 96/63
[2020-02-16] MEDS: MORPHINE SULFATE 4 MG/ML, 1ML IVPush PRN ×3 (00:09→16:51)
[2020-02-16 01:52] VITALS: BP 101/66
[2020-02-16] MEDS: OXYcodone IR 5MG TABLET PO PRN ×3 (02:30→23:36)
[2020-02-16 05:23] LABS: MEAN CORPUSCULAR HEMOGLOBIN 28.6 pg (27.5-34.5); MEAN CORPUSCULAR HGB CONC 33.5 g/dL (33.2-36.2); MEAN CORPUSCULAR VOLUME 85.2 fL (81-97); MEAN PLATELET VOLUME 8.6 fL (7.4-10.4); PLATELET COUNT 284 x10^3/uL (130-400); RED BLOOD COUNT 3.11 x10^6/uL (4.38-5.82)
[2020-02-16 05:31] LABS: ALBUMIN 2.1 g/dL (3.4-5.0); CALCIUM 7.7 mg/dL (8.5-10.1); CHLORIDE 104 mmol/L (98-107)
[2020-02-16 05:40] LABS: ANION GAP 11 mmol/L (5-15); CREATININE 1.42 mg/dL (0.7-1.3)
[2020-02-16 05:41] LABS: ALANINE AMINOTRANSFERASE 138 U/L (12-78); ALKALINE PHOSPHATASE 90 U/L (45-117); BILIRUBIN,TOTAL 1.8 mg/dL (0.2-1.0); PREALBUMIN 21.1 mg/dL (20.0-40.0); TOTAL PROTEIN 5.8 g/dL (6.4-8.2)
[2020-02-16 05:48] LABS: BASOPHILS # (AUTO) 0.01 x10^3/uL (0-0.1); BASOPHILS % (AUTO) 0 % (0-1); EOSINOPHILS # (AUTO) 0.34 x10^3/uL (0-0.4); EOSINOPHILS % (AUTO) 2 % (1-7); LYMPHOCYTES # (AUTO) 1.03 x10^3/uL (1-3.4); LYMPHOCYTES % (AUTO) 5 % (22-44); MD SCAN; MONOCYTES # (AUTO) 0.24 x10^3/uL (0.2-0.8); MONOCYTES % (AUTO) 1 % (2-9); NEUTROPHILS # (AUTO) 19.15 x10^3/uL (1.8-6.8); NEUTROPHILS % (AUTO) 92 % (42-75)
[2020-02-16] MEDS ORDERED: PANTOPRAZOLE 40MG TABLET PO SCH (06:00)
[2020-02-16] MEDS: PIPERACILLIN/TAZO(ZOSYN) 2.25 GM in NS 50 ML IVPB SCH ×3 (06:09→22:21)
[2020-02-16 06:27] LABS: HCT (SEDRATE) 26.5 % (39.2-51.8)
[2020-02-16 06:28] VITALS: BP 128/82
[2020-02-16] MEDS: INSULIN LISPRO 100 UNITS/ML, PEN SQ-INSULIN SCH ×4 (07:00→21:14)
[2020-02-16] MEDS: SENNA/DOCUSATE TABLET PO SCH (09:00)
[2020-02-16] MEDS: ALBUTEROL/IPRATROPIUM 2.5MG/0.5MG, 3 ML NPPB SCH ×3 (09:00→21:37)
[2020-02-16] MEDS: AMIODARONE 200 MG TABLET PO SCH (09:09)
[2020-02-16] MEDS: INSULIN GLARGINE 100 UNITS/ML, PEN SQ-INSULIN SCH ×2 (09:10→21:14)
[2020-02-16] MEDS: SODIUM CHLORIDE FLUSH 10ML SYR IVF SCH ×2 (09:11→21:13)
[2020-02-16 13:31] VITALS: BP 125/76
[2020-02-16 18:58] VITALS: BP 120/73
[2020-02-17 01:06] VITALS: BP 118/76
[2020-02-17 05:45] LABS: MEAN CORPUSCULAR HEMOGLOBIN 28.9 pg (27.5-34.5); MEAN PLATELET VOLUME 8.5 fL (7.4-10.4); PLATELET COUNT 416 x10^3/uL (130-400); RED BLOOD COUNT 3.14 x10^6/uL (4.38-5.82); RED CELL DISTRIBUTION WIDTH 14.4 % (9.4-14.8)
[2020-02-17 05:47] LABS: ANION GAP 7 mmol/L (5-15); CALCIUM 8.2 mg/dL (8.5-10.1); CHLORIDE 106 mmol/L (98-107)
[2020-02-17] MEDS: PIPERACILLIN/TAZO(ZOSYN) 2.25 GM in NS 50 ML IVPB SCH ×3 (05:57→21:43)
[2020-02-17 06:08] LABS: MD YES
[2020-02-17 06:10] LABS: LYMPH#(MANUAL) 0.86 x10^3/uL (1-3.4); LYMPHS% (MANUAL) 4 % (22-44); MONOS#(MANUAL) 1.08 x10^3/uL (0.3-2.7); MONOS% (MANUAL) 5 % (2-9); SEG#(MANUAL) 19.57 x10^3/uL (1.8-6.8); SEGS% (MANUAL) 91 % (42-75)
[2020-02-17 06:11] LABS: POLYCHROMASIA 1+
[2020-02-17 06:12] LABS: <PLATELET ESTIMATE> INCREASED; <PLT MORPHOLOGY> NORMAL PLT MORPH
[2020-02-17] MEDS: INSULIN LISPRO 100 UNITS/ML, PEN SQ-INSULIN SCH ×4 (07:00→20:04)
[2020-02-17] MEDS: SENNA/DOCUSATE TABLET PO SCH (07:51)
[2020-02-17] MEDS: AMIODARONE 200 MG TABLET PO SCH (07:57)
[2020-02-17 08:00] VITALS: BP 130/82
[2020-02-17] MEDS: SODIUM CHLORIDE FLUSH 10ML SYR IVF SCH ×2 (08:03→20:57)
[2020-02-17] MEDS: INSULIN GLARGINE 100 UNITS/ML, PEN SQ-INSULIN SCH ×2 (08:03→20:58)
[2020-02-17] MEDS: ALBUTEROL/IPRATROPIUM 2.5MG/0.5MG, 3 ML NPPB SCH ×3 (08:28→19:00)
[2020-02-17 10:51] VITALS: BP 109/59
[2020-02-17] MEDS: OXYcodone IR 5MG TABLET PO PRN (12:55)
[2020-02-17 13:49] VITALS: BP 110/68
[2020-02-17] MEDS: MORPHINE SULFATE 4 MG/ML, 1ML IVPush PRN (16:58)
[2020-02-17 19:33] VITALS: BP 116/76
[2020-02-18 00:10] VITALS: BP 122/56
[2020-02-18] MEDS: ALBUTEROL/IPRATROPIUM 2.5MG/0.5MG, 3 ML NPPB SCH ×4 (02:15→18:51)
[2020-02-18 05:36] LABS: MEAN CORPUSCULAR HEMOGLOBIN 29.5 pg (27.5-34.5); MEAN CORPUSCULAR HGB CONC 34.5 g/dL (33.2-36.2); MEAN CORPUSCULAR VOLUME 85.4 fL (81-97); MEAN PLATELET VOLUME 7.9 fL (7.4-10.4); PLATELET COUNT 518 x10^3/uL (130-400); RED BLOOD COUNT 2.94 x10^6/uL (4.38-5.82); RED CELL DISTRIBUTION WIDTH 14.6 % (9.4-14.8)
[2020-02-18] MEDS: PIPERACILLIN/TAZO(ZOSYN) 2.25 GM in NS 50 ML IVPB SCH ×2 (05:45→13:03)
[2020-02-18 06:19] LABS: MD YES
[2020-02-18 06:20] LABS: <PLATELET ESTIMATE> INCREASED; <PLT MORPHOLOGY> NORMAL PLT MORPH; EOS#(MANUAL) 0.22 x10^3/uL (0.0-0.4); EOS% (MANUAL) 1 % (1-7); LYMPH#(MANUAL) 1.12 x10^3/uL (1-3.4); LYMPHS% (MANUAL) 5 % (22-44); MYELOCYTES# (MANUAL) 0.22 x10^3/uL (0-0); MYELOCYTES% (MANUAL) 1 % (0-0); POLYCHROMASIA 1+; SEG#(MANUAL) 20.74 x10^3/uL (1.8-6.8); SEGS% (MANUAL) 93 % (42-75)
[2020-02-18 07:18] VITALS: BP 109/71
[2020-02-18 08:01] LABS: ANION GAP 11 mmol/L (5-15); CALCIUM 8.2 mg/dL (8.5-10.1); CHLORIDE 105 mmol/L (98-107); CREATININE 1.32 mg/dL (0.7-1.3)
[2020-02-18] MEDS: INSULIN LISPRO 100 UNITS/ML, PEN SQ-INSULIN SCH ×4 (08:12→19:52)
[2020-02-18] MEDS: AMIODARONE 200 MG TABLET PO SCH (08:50)
[2020-02-18] MEDS: INSULIN GLARGINE 100 UNITS/ML, PEN SQ-INSULIN SCH ×2 (08:51→20:18)
[2020-02-18] MEDS: SODIUM CHLORIDE FLUSH 10ML SYR IVF SCH ×2 (08:51→20:18)
[2020-02-18] MEDS: SENNA/DOCUSATE TABLET PO SCH (08:52)
[2020-02-18 12:05] VITALS: BP 121/76
[2020-02-18] MEDS ORDERED: CALCIUM CARBONATE 500 MG TAB.CHEW PO PRN (13:00)
[2020-02-18] MEDS ORDERED: GADOTERATE 10 MMOL/20 ML VIAL ONE (15:39)
[2020-02-18] MEDS ORDERED: GADOTERATE 2.5 MMOL/5 ML VIAL ONE (15:39)
[2020-02-18] MEDS: PIPERACILLIN/TAZO/PMX 4.5GM 100 ML IV SCH (18:15)
[2020-02-18] MEDS: OXYcodone IR 5MG TABLET PO PRN (18:24)
[2020-02-18 19:53] VITALS: BP 122/77
[2020-02-19] MEDS: PIPERACILLIN/TAZO/PMX 4.5GM 100 ML IV SCH ×3 (02:07→18:21)
[2020-02-19 02:11] VITALS: BP 165/83
[2020-02-19 03:36] VITALS: BP 111/70
[2020-02-19 05:30] LABS: MEAN CORPUSCULAR HEMOGLOBIN 28.9 pg (27.5-34.5); MEAN CORPUSCULAR HGB CONC 33.5 g/dL (33.2-36.2); MEAN CORPUSCULAR VOLUME 86.2 fL (81-97); MEAN PLATELET VOLUME 7.9 fL (7.4-10.4); PLATELET COUNT 642 x10^3/uL (130-400); RED BLOOD COUNT 2.97 x10^6/uL (4.38-5.82); RED CELL DISTRIBUTION WIDTH 14.9 % (9.4-14.8)
[2020-02-19] MEDS: OMEPRAZOLE 20 MG CAPSULE.DR PO SCH (05:45)
[2020-02-19 06:10] LABS: BASOPHILS # (AUTO) 0.01 x10^3/uL (0-0.1); BASOPHILS % (AUTO) 0 % (0-1); EOSINOPHILS # (AUTO) 0.13 x10^3/uL (0-0.4); EOSINOPHILS % (AUTO) 1 % (1-7); LYMPHOCYTES # (AUTO) 0.63 x10^3/uL (1-3.4); LYMPHOCYTES % (AUTO) 3 % (22-44); MD SCAN; MONOCYTES # (AUTO) 0.88 x10^3/uL (0.2-0.8); MONOCYTES % (AUTO) 5 % (2-9); NEUTROPHILS # (AUTO) 18.07 x10^3/uL (1.8-6.8); NEUTROPHILS % (AUTO) 92 % (42-75)
[2020-02-19 06:46] VITALS: BP 133/83
[2020-02-19] MEDS: INSULIN LISPRO 100 UNITS/ML, PEN SQ-INSULIN SCH ×4 (07:28→20:33)
[2020-02-19] MEDS: SENNA/DOCUSATE TABLET PO SCH (08:16)
[2020-02-19] MEDS: AMIODARONE 200 MG TABLET PO SCH (08:16)
[2020-02-19] MEDS: INSULIN GLARGINE 100 UNITS/ML, PEN SQ-INSULIN SCH (08:17)
[2020-02-19] MEDS: SODIUM CHLORIDE FLUSH 10ML SYR IVF SCH ×2 (08:17→20:43)
[2020-02-19] MEDS: ALBUTEROL/IPRATROPIUM 2.5MG/0.5MG, 3 ML NPPB SCH ×2 (08:55→18:30)
[2020-02-19 12:45] VITALS: BP 128/71
[2020-02-19] MEDS: OXYcodone IR 5MG TABLET PO PRN ×3 (13:33→23:19)
[2020-02-19] MEDS ORDERED: LIDOCAINE 1%, 10ML ONE (15:08)
[2020-02-19] MEDS ORDERED: ALBUTEROL/IPRATROPIUM 2.5MG/0.5MG, 3 ML ONE (18:37)
[2020-02-19 19:26] VITALS: BP 108/61
[2020-02-20 00:52] VITALS: BP 104/69
[2020-02-20] MEDS: PIPERACILLIN/TAZO/PMX 4.5GM 100 ML IV SCH ×3 (02:08→17:31)
[2020-02-20] MEDS: OXYcodone IR 5MG TABLET PO PRN ×3 (05:49→20:12)
[2020-02-20] MEDS: OMEPRAZOLE 20 MG CAPSULE.DR PO SCH (05:49)
[2020-02-20] MEDS: LACTULOSE 20 GM/30 ML UDC NG PRN (05:50)
[2020-02-20 06:52] VITALS: BP 116/73
[2020-02-20] MEDS: INSULIN LISPRO 100 UNITS/ML, PEN SQ-INSULIN SCH ×4 (07:00→20:08)
[2020-02-20 07:32] LABS: MEAN CORPUSCULAR HEMOGLOBIN 28.5 pg (27.5-34.5); MEAN CORPUSCULAR HGB CONC 32.8 g/dL (33.2-36.2); MEAN CORPUSCULAR VOLUME 86.9 fL (81-97); MEAN PLATELET VOLUME 6.9 fL (7.4-10.4); PLATELET COUNT 720 x10^3/uL (130-400); RED CELL DISTRIBUTION WIDTH 14.9 % (9.4-14.8)
[2020-02-20] MEDS: AMIODARONE 200 MG TABLET PO SCH (08:36)
[2020-02-20] MEDS: SENNA/DOCUSATE TABLET PO SCH (08:36)
[2020-02-20] MEDS: SODIUM CHLORIDE FLUSH 10ML SYR IVF SCH ×2 (08:37→20:12)
[2020-02-20 08:46] LABS: BASOPHILS # (AUTO) 0.02 x10^3/uL (0-0.1); BASOPHILS % (AUTO) 0 % (0-1); EOSINOPHILS # (AUTO) 0.13 x10^3/uL (0-0.4); EOSINOPHILS % (AUTO) 1 % (1-7); LYMPHOCYTES # (AUTO) 0.53 x10^3/uL (1-3.4); LYMPHOCYTES % (AUTO) 4 % (22-44); MD SCAN; MONOCYTES # (AUTO) 0.83 x10^3/uL (0.2-0.8); MONOCYTES % (AUTO) 6 % (2-9); NEUTROPHILS # (AUTO) 12.07 x10^3/uL (1.8-6.8); NEUTROPHILS % (AUTO) 89 % (42-75)
[2020-02-20] MEDS: ALBUTEROL/IPRATROPIUM 2.5MG/0.5MG, 3 ML NPPB SCH ×3 (09:00→19:38)
[2020-02-20 13:00] VITALS: BP 113/76
[2020-02-20] MEDS ORDERED: ALBUTEROL SULFATE 2.5 MG/3 ML NPPB PRN (16:00)
[2020-02-20 20:46] VITALS: BP 119/76
[2020-02-21] MEDS: TEMAZEPAM 30 MG CAPSULE PO PRN (01:22)
[2020-02-21] MEDS: PIPERACILLIN/TAZO/PMX 4.5GM 100 ML IV SCH ×3 (02:06→18:05)
[2020-02-21 02:15] VITALS: BP 137/70
[2020-02-21 04:55] LABS: MEAN CORPUSCULAR HEMOGLOBIN 28.7 pg (27.5-34.5); MEAN CORPUSCULAR HGB CONC 33.7 g/dL (33.2-36.2); MEAN CORPUSCULAR VOLUME 85.4 fL (81-97); MEAN PLATELET VOLUME 6.9 fL (7.4-10.4); PLATELET COUNT 623 x10^3/uL (130-400); RED BLOOD COUNT 2.62 x10^6/uL (4.38-5.82); RED CELL DISTRIBUTION WIDTH 14.5 % (9.4-14.8)
[2020-02-21 05:00] LABS: ANION GAP 8 mmol/L (5-15); CALCIUM 7.8 mg/dL (8.5-10.1); CHLORIDE 103 mmol/L (98-107); CREATININE 1.14 mg/dL (0.7-1.3)
[2020-02-21 05:45] LABS: BASOPHILS # (AUTO) 0.02 x10^3/uL (0-0.1); BASOPHILS % (AUTO) 0 % (0-1); EOSINOPHILS % (AUTO) 1 % (1-7); LYMPHOCYTES % (AUTO) 5 % (22-44); MD SCAN; MONOCYTES # (AUTO) 0.48 x10^3/uL (0.2-0.8); MONOCYTES % (AUTO) 4 % (2-9); NEUTROPHILS # (AUTO) 11.13 x10^3/uL (1.8-6.8); NEUTROPHILS % (AUTO) 90 % (42-75)
[2020-02-21] MEDS: OMEPRAZOLE 20 MG CAPSULE.DR PO SCH (05:59)
[2020-02-21] MEDS: OXYcodone IR 5MG TABLET PO PRN ×2 (06:00→15:00)
[2020-02-21] MEDS: LACTULOSE 20 GM/30 ML UDC NG PRN (06:04)
[2020-02-21 06:51] VITALS: BP 126/73
[2020-02-21] MEDS: INSULIN LISPRO 100 UNITS/ML, PEN SQ-INSULIN SCH ×4 (07:00→21:00)
[2020-02-21 07:02] VITALS: BP 121/72
[2020-02-21] MEDS: AMIODARONE 200 MG TABLET PO SCH (08:27)
[2020-02-21] MEDS: SENNA/DOCUSATE TABLET PO SCH (08:27)
[2020-02-21] MEDS: SODIUM CHLORIDE FLUSH 10ML SYR IVF SCH ×2 (08:28→21:01)
[2020-02-21] MEDS: ALBUTEROL/IPRATROPIUM 2.5MG/0.5MG, 3 ML NPPB SCH ×2 (09:00→20:58)
[2020-02-21 12:52] VITALS: BP 107/68
[2020-02-21] MEDS ORDERED: METOCLOPRAMIDE 5 MG/ML, 2ML IVPush PRN (15:00)
[2020-02-21] MEDS: SENNA 176 MG/5 ML ORAL SOL NG SCH ×2 (15:00→21:00)
[2020-02-21] MEDS: POLYETHYLENE GLYCOL 17 GM PACKET PO SCH ×2 (15:14→21:00)
[2020-02-21 18:44] VITALS: BP 134/72
[2020-02-22] MEDS: TEMAZEPAM 30 MG CAPSULE PO PRN (01:19)
[2020-02-22] MEDS: PIPERACILLIN/TAZO/PMX 4.5GM 100 ML IV SCH ×3 (01:54→18:04)
[2020-02-22 02:33] VITALS: BP 148/73
[2020-02-22] MEDS: OMEPRAZOLE 20 MG CAPSULE.DR PO SCH (06:11)
[2020-02-22 06:26] LABS: MEAN CORPUSCULAR HEMOGLOBIN 28.5 pg (27.5-34.5); MEAN CORPUSCULAR HGB CONC 33.7 g/dL (33.2-36.2); MEAN CORPUSCULAR VOLUME 84.7 fL (81-97); MEAN PLATELET VOLUME 6.2 fL (7.4-10.4); PLATELET COUNT 594 x10^3/uL (130-400); RED BLOOD COUNT 2.51 x10^6/uL (4.38-5.82); RED CELL DISTRIBUTION WIDTH 14.8 % (9.4-14.8)
[2020-02-22 06:31] LABS: ANION GAP 10 mmol/L (5-15); CALCIUM 7.9 mg/dL (8.5-10.1); CHLORIDE 102 mmol/L (98-107); CREATININE 0.99 mg/dL (0.7-1.3)
[2020-02-22 07:00] VITALS: BP 115/71
[2020-02-22] MEDS: INSULIN LISPRO 100 UNITS/ML, PEN SQ-INSULIN SCH ×4 (07:00→20:03)
[2020-02-22 07:24] LABS: % IRON SATURATION 9 % (20-55); IRON LEVEL 15 mcg/dL (65-175); TOTAL IRON BINDING CAPACITY 172 mcg/dL (250-450)
[2020-02-22] MEDS: ALBUTEROL/IPRATROPIUM 2.5MG/0.5MG, 3 ML NPPB SCH ×2 (07:40→20:29)
[2020-02-22 07:42] LABS: MD YES
[2020-02-22 07:44] LABS: <PLATELET ESTIMATE> INCREASED; <PLT MORPHOLOGY> NORMAL PLT MORPH; EOS#(MANUAL) 0.49 x10^3/uL (0.0-0.4); EOS% (MANUAL) 5 % (1-7); LYMPH#(MANUAL) 0.39 x10^3/uL (1-3.4); LYMPHS% (MANUAL) 4 % (22-44); MONOS#(MANUAL) 0.49 x10^3/uL (0.3-2.7); MONOS% (MANUAL) 5 % (2-9); POLYCHROMASIA 1+; SEG#(MANUAL) 8.43 x10^3/uL (1.8-6.8); SEGS% (MANUAL) 86 % (42-75)
[2020-02-22] MEDS: AMIODARONE 200 MG TABLET PO SCH (08:39)
[2020-02-22] MEDS: POLYETHYLENE GLYCOL 17 GM PACKET PO SCH ×3 (08:40→21:53)
[2020-02-22] MEDS: SENNA/DOCUSATE TABLET PO SCH (08:40)
[2020-02-22] MEDS: SODIUM CHLORIDE FLUSH 10ML SYR IVF SCH ×2 (08:40→21:54)
[2020-02-22] MEDS: OXYcodone IR 5MG TABLET PO PRN ×2 (08:40→12:50)
[2020-02-22] MEDS ORDERED: LORazepam 2 MG/ML, 1ML IVPush ONE (11:30)
[2020-02-22 13:22] VITALS: BP 136/74
[2020-02-22] MEDS ORDERED: GADOTERATE 10 MMOL/20 ML SYR ONE (15:26)
[2020-02-22] MEDS ORDERED: GADOTERATE 2.5 MMOL/5 ML VIAL ONE (15:26)
[2020-02-22 18:59] VITALS: BP 124/70
[2020-02-22] MEDS: SENNA 176 MG/5 ML ORAL SOL NG SCH (21:29)
[2020-02-23] MEDS: PIPERACILLIN/TAZO/PMX 4.5GM 100 ML IV SCH ×2 (01:55→09:30)
[2020-02-23 02:04] VITALS: BP 116/62
[2020-02-23] MEDS: OXYcodone IR 5MG TABLET PO PRN ×3 (02:24→21:40)
[2020-02-23] MEDS: OMEPRAZOLE 20 MG CAPSULE.DR PO SCH (05:35)
[2020-02-23 06:24] LABS: BASOPHILS # (AUTO) 0.03 x10^3/uL (0-0.1); BASOPHILS % (AUTO) 0 % (0-1); EOSINOPHILS # (AUTO) 0.18 x10^3/uL (0-0.4); EOSINOPHILS % (AUTO) 2 % (1-7); LYMPHOCYTES # (AUTO) 0.64 x10^3/uL (1-3.4); LYMPHOCYTES % (AUTO) 7 % (22-44); MD NO; MEAN CORPUSCULAR HEMOGLOBIN 28.5 pg (27.5-34.5); MEAN CORPUSCULAR HGB CONC 33.7 g/dL (33.2-36.2); MEAN CORPUSCULAR VOLUME 84.6 fL (81-97); MEAN PLATELET VOLUME 6.8 fL (7.4-10.4); MONOCYTES # (AUTO) 0.55 x10^3/uL (0.2-0.8); MONOCYTES % (AUTO) 6 % (2-9); NEUTROPHILS # (AUTO) 7.67 x10^3/uL (1.8-6.8); NEUTROPHILS % (AUTO) 85 % (42-75); PLATELET COUNT 510 x10^3/uL (130-400); RED BLOOD COUNT 2.72 x10^6/uL (4.38-5.82); RED CELL DISTRIBUTION WIDTH 14.4 % (9.4-14.8)
[2020-02-23 06:32] LABS: ALANINE AMINOTRANSFERASE 91 U/L (12-78); ALBUMIN 1.5 g/dL (3.4-5.0); ANION GAP 7 mmol/L (5-15); CHLORIDE 100 mmol/L (98-107)
[2020-02-23 06:33] VITALS: BP 120/71
[2020-02-23 06:38] LABS: ALKALINE PHOSPHATASE 93 U/L (45-117); BILIRUBIN,TOTAL 1.2 mg/dL (0.2-1.0); TOTAL PROTEIN 6.2 g/dL (6.4-8.2)
[2020-02-23] MEDS: INSULIN LISPRO 100 UNITS/ML, PEN SQ-INSULIN SCH ×4 (07:00→20:40)
[2020-02-23 07:19] LABS: SEDIMENTATION RATE > 120 mm/hr (0-10)
[2020-02-23] MEDS: SODIUM CHLORIDE FLUSH 10ML SYR IVF SCH ×2 (09:00→21:00)
[2020-02-23] MEDS: SENNA/DOCUSATE TABLET PO SCH (09:00)
[2020-02-23] MEDS: AMIODARONE 200 MG TABLET PO SCH (09:30)
[2020-02-23] MEDS: IRON SUCROSE COMPLEX 100MG/5ML IV SCH (09:30)
[2020-02-23] MEDS: POLYETHYLENE GLYCOL 17 GM PACKET PO SCH ×3 (09:30→21:00)
[2020-02-23] MEDS: ALBUTEROL/IPRATROPIUM 2.5MG/0.5MG, 3 ML NPPB SCH ×2 (10:14→21:00)
[2020-02-23] MEDS ORDERED: methylPREDNISolone SOD SUCC 125 MG/2 ML IVPush ONE (11:30)
[2020-02-23] MEDS ORDERED: DIPHENHYDRAMINE 50 MG/ML, 1ML IVPush ONE (12:00)
[2020-02-23 12:41] VITALS: BP 138/76
[2020-02-23] MEDS ORDERED: DIPHENHYDRAMINE 50 MG/ML, 1ML IVPush PRN (16:00)
[2020-02-23] MEDS: MEROPENEM 1 GM in SODIUM CHLORIDE 0.9% 100 ML IV SCH (18:09)
[2020-02-23 18:35] VITALS: BP 115/73
[2020-02-23] MEDS: SENNA 176 MG/5 ML ORAL SOL NG SCH (21:00)
[2020-02-24 00:29] VITALS: BP 120/78
[2020-02-24] MEDS: MEROPENEM 1 GM in SODIUM CHLORIDE 0.9% 100 ML IV SCH ×3 (01:46→18:14)
[2020-02-24] MEDS: TEMAZEPAM 30 MG CAPSULE PO PRN ×2 (02:33→22:13)
[2020-02-24] MEDS: OMEPRAZOLE 20 MG CAPSULE.DR PO SCH (06:00)
[2020-02-24 06:35] LABS: MEAN CORPUSCULAR HEMOGLOBIN 28.2 pg (27.5-34.5); MEAN CORPUSCULAR HGB CONC 32.7 g/dL (33.2-36.2); MEAN CORPUSCULAR VOLUME 86.3 fL (81-97); MEAN PLATELET VOLUME 6.5 fL (7.4-10.4); PLATELET COUNT 534 x10^3/uL (130-400); RED BLOOD COUNT 2.65 x10^6/uL (4.38-5.82); RED CELL DISTRIBUTION WIDTH 14.9 % (9.4-14.8)
[2020-02-24 06:36] LABS: ALANINE AMINOTRANSFERASE 78 U/L (12-78); ALBUMIN 1.6 g/dL (3.4-5.0); ANION GAP 8 mmol/L (5-15); CALCIUM 8.1 mg/dL (8.5-10.1); CHLORIDE 105 mmol/L (98-107); CREATININE 0.88 mg/dL (0.7-1.3)
[2020-02-24 06:37] LABS: HEMOGRAM NOTE RECHECKED
[2020-02-24 06:38] LABS: ALKALINE PHOSPHATASE 90 U/L (45-117); BILIRUBIN,TOTAL 0.6 mg/dL (0.2-1.0); TOTAL PROTEIN 6.6 g/dL (6.4-8.2)
[2020-02-24 07:37] VITALS: BP 105/68
[2020-02-24] MEDS: INSULIN LISPRO 100 UNITS/ML, PEN SQ-INSULIN SCH ×4 (07:54→20:01)
[2020-02-24 08:12] LABS: MD SCAN
[2020-02-24 08:15] LABS: BASOPHILS # (AUTO) 0.02 x10^3/uL (0-0.1); BASOPHILS % (AUTO) 0 % (0-1); EOSINOPHILS # (AUTO) 0.01 x10^3/uL (0-0.4); EOSINOPHILS % (AUTO) 0 % (1-7); LYMPHOCYTES # (AUTO) 1.02 x10^3/uL (1-3.4); LYMPHOCYTES % (AUTO) 12 % (22-44); MONOCYTES # (AUTO) 0.51 x10^3/uL (0.2-0.8); MONOCYTES % (AUTO) 6 % (2-9); NEUTROPHILS # (AUTO) 7.06 x10^3/uL (1.8-6.8); NEUTROPHILS % (AUTO) 82 % (42-75)
[2020-02-24] MEDS: ALBUTEROL/IPRATROPIUM 2.5MG/0.5MG, 3 ML NPPB SCH ×2 (09:00→20:56)
[2020-02-24] MEDS: IRON SUCROSE COMPLEX 100MG/5ML IV SCH (09:06)
[2020-02-24] MEDS: POLYETHYLENE GLYCOL 17 GM PACKET PO SCH ×3 (09:06→20:01)
[2020-02-24] MEDS: AMIODARONE 200 MG TABLET PO SCH (09:06)
[2020-02-24] MEDS: SODIUM CHLORIDE FLUSH 10ML SYR IVF SCH ×2 (09:06→20:07)
[2020-02-24] MEDS: SENNA/DOCUSATE TABLET PO SCH (09:07)
[2020-02-24] MEDS: OXYcodone IR 5MG TABLET PO PRN ×3 (09:22→22:14)
[2020-02-24] MEDS ORDERED: CHLORHEXIDINE 15 ML UDC MM STA (14:53)
[2020-02-24] MEDS ORDERED: CHLORHEXIDINE 15 ML UDC ONE (14:58)
[2020-02-24] MEDS ORDERED: FENTANYL PF 100 MCG/2ML ONE ×3 (15:36→16:57)
[2020-02-24] MEDS ORDERED: MIDAZOLAM 1 MG/ML, 2ML ONE (15:36)
[2020-02-24] MEDS ORDERED: PROPOFOL 10 MG/ML, 20ML ONE (15:48)
[2020-02-24] MEDS ORDERED: LIDOCAINE PF 2%, 5ML ONE (15:48)
[2020-02-24] MEDS ORDERED: HYDROmorphone 1 MG/ML, 1ML INJ IVPush PRN (16:30)
[2020-02-24] MEDS ORDERED: OXYcodone 5 MG/5 ML ORAL.SOL UDC PO PRN (16:30)
[2020-02-24] MEDS ORDERED: PROMETHAZINE 25 MG/ML, 1ML IVPush PRN (16:30)
[2020-02-24] MEDS ORDERED: MEPERIDINE/PF 25MG/0.5ML IVPush PRN (16:30)
[2020-02-24] MEDS ORDERED: OXYcodone 5 MG/5 ML ORAL.SOL UDC ONE (16:57)
[2020-02-24] MEDS: FENTANYL PF 100 MCG/2ML IV PRN ×2 (16:59→17:09)
[2020-02-24 18:08] VITALS: BP 112/70
[2020-02-24 19:21] VITALS: BP 109/53
[2020-02-24] MEDS: SENNA 176 MG/5 ML ORAL SOL NG SCH (20:01)
[2020-02-25 00:20] VITALS: BP 104/59
[2020-02-25] MEDS: MEROPENEM 1 GM in SODIUM CHLORIDE 0.9% 100 ML IV SCH ×3 (02:18→18:28)
[2020-02-25] MEDS: OMEPRAZOLE 20 MG CAPSULE.DR PO SCH (05:11)
[2020-02-25] MEDS: OXYcodone IR 5MG TABLET PO PRN ×3 (05:12→18:28)
[2020-02-25 07:03] VITALS: BP 107/70
[2020-02-25] MEDS: INSULIN LISPRO 100 UNITS/ML, PEN SQ-INSULIN SCH ×4 (07:28→20:53)
[2020-02-25] MEDS: ALBUTEROL/IPRATROPIUM 2.5MG/0.5MG, 3 ML NPPB SCH ×2 (09:00→18:53)
[2020-02-25] MEDS: SODIUM CHLORIDE FLUSH 10ML SYR IVF SCH ×2 (09:03→21:03)
[2020-02-25] MEDS: AMIODARONE 200 MG TABLET PO SCH (09:03)
[2020-02-25] MEDS: IRON SUCROSE COMPLEX 100MG/5ML IV SCH (09:03)
[2020-02-25] MEDS: POLYETHYLENE GLYCOL 17 GM PACKET PO SCH ×3 (09:03→20:08)
[2020-02-25] MEDS: SENNA/DOCUSATE TABLET PO SCH (09:03)
[2020-02-25 15:37] VITALS: BP 113/71
[2020-02-25 18:37] VITALS: BP 119/74
[2020-02-25] MEDS: SENNA 176 MG/5 ML ORAL SOL NG SCH (20:08)
[2020-02-25] MEDS: TEMAZEPAM 30 MG CAPSULE PO PRN (23:15)
[2020-02-26 00:53] VITALS: BP 116/70
[2020-02-26] MEDS: MEROPENEM 1 GM in SODIUM CHLORIDE 0.9% 100 ML IV SCH ×3 (01:59→18:05)
[2020-02-26] MEDS: OXYcodone IR 5MG TABLET PO PRN ×4 (04:06→21:55)
[2020-02-26] MEDS: OMEPRAZOLE 20 MG CAPSULE.DR PO SCH (05:51)
[2020-02-26] MEDS: INSULIN LISPRO 100 UNITS/ML, PEN SQ-INSULIN SCH ×4 (07:00→20:20)
[2020-02-26 07:55] VITALS: BP 132/81
[2020-02-26] MEDS: IRON SUCROSE COMPLEX 100MG/5ML IV SCH (08:42)
[2020-02-26] MEDS: SENNA/DOCUSATE TABLET PO SCH (08:42)
[2020-02-26] MEDS: POLYETHYLENE GLYCOL 17 GM PACKET PO SCH ×3 (08:42→20:21)
[2020-02-26] MEDS: AMIODARONE 200 MG TABLET PO SCH (08:42)
[2020-02-26] MEDS: SODIUM CHLORIDE FLUSH 10ML SYR IVF SCH ×2 (08:43→20:52)
[2020-02-26] MEDS: ALBUTEROL SULFATE 2.5 MG/3 ML NPPB SCH ×2 (09:22→19:35)
[2020-02-26 13:45] VITALS: BP 122/73
[2020-02-26 18:37] VITALS: BP 110/69
[2020-02-26] MEDS: SENNA 176 MG/5 ML ORAL SOL NG SCH (20:20)
[2020-02-27 00:27] VITALS: BP 121/76
[2020-02-27] MEDS: MEROPENEM 1 GM in SODIUM CHLORIDE 0.9% 100 ML IV SCH ×3 (01:47→17:53)
[2020-02-27 05:07] LABS: ANION GAP 5 mmol/L (5-15); CALCIUM 8.1 mg/dL (8.5-10.1); CHLORIDE 102 mmol/L (98-107); CREATININE 0.85 mg/dL (0.7-1.3); MEAN CORPUSCULAR HEMOGLOBIN 28.2 pg (27.5-34.5); MEAN CORPUSCULAR HGB CONC 33.3 g/dL (33.2-36.2); MEAN CORPUSCULAR VOLUME 84.7 fL (81-97); MEAN PLATELET VOLUME 6.1 fL (7.4-10.4); PLATELET COUNT 372 x10^3/uL (130-400); RED BLOOD COUNT 2.57 x10^6/uL (4.38-5.82)
[2020-02-27] MEDS: OMEPRAZOLE 20 MG CAPSULE.DR PO SCH (05:19)
[2020-02-27 05:55] LABS: BASOPHILS # (AUTO) 0.05 x10^3/uL (0-0.1); BASOPHILS % (AUTO) 1 % (0-1); EOSINOPHILS # (AUTO) 0.65 x10^3/uL (0-0.4); EOSINOPHILS % (AUTO) 6 % (1-7); LYMPHOCYTES # (AUTO) 1.31 x10^3/uL (1-3.4); LYMPHOCYTES % (AUTO) 13 % (22-44); MD SCAN; MONOCYTES # (AUTO) 0.42 x10^3/uL (0.2-0.8); MONOCYTES % (AUTO) 4 % (2-9); NEUTROPHILS # (AUTO) 7.73 x10^3/uL (1.8-6.8); NEUTROPHILS % (AUTO) 76 % (42-75)
[2020-02-27] MEDS: OXYcodone IR 5MG TABLET PO PRN ×4 (06:43→21:50)
[2020-02-27 07:08] VITALS: BP 131/77
[2020-02-27] MEDS: INSULIN LISPRO 100 UNITS/ML, PEN SQ-INSULIN SCH ×4 (07:20→20:19)
[2020-02-27] MEDS: IRON SUCROSE COMPLEX 100MG/5ML IV SCH (08:19)
[2020-02-27] MEDS: AMIODARONE 200 MG TABLET PO SCH (08:19)
[2020-02-27] MEDS: SENNA/DOCUSATE TABLET PO SCH (08:20)
[2020-02-27] MEDS: SODIUM CHLORIDE FLUSH 10ML SYR IVF SCH ×2 (08:20→20:33)
[2020-02-27] MEDS: POLYETHYLENE GLYCOL 17 GM PACKET PO SCH ×3 (08:20→20:34)
[2020-02-27] MEDS: ALBUTEROL SULFATE 2.5 MG/3 ML NPPB SCH ×2 (10:25→19:06)
[2020-02-27 12:54] VITALS: BP 108/71
[2020-02-27 16:14] VITALS: BP 114/73
[2020-02-27 18:45] VITALS: BP 124/72
[2020-02-27] MEDS: SENNA 176 MG/5 ML ORAL SOL NG SCH (20:34)
[2020-02-27] MEDS: TEMAZEPAM 30 MG CAPSULE PO PRN (21:50)
[2020-02-28 00:59] VITALS: BP 136/85
[2020-02-28] MEDS: MEROPENEM 1 GM in SODIUM CHLORIDE 0.9% 100 ML IV SCH ×3 (01:29→17:35)
[2020-02-28] MEDS: OMEPRAZOLE 20 MG CAPSULE.DR PO SCH (05:19)
[2020-02-28] MEDS: OXYcodone IR 5MG TABLET PO PRN ×4 (06:09→20:19)
[2020-02-28 06:58] VITALS: BP 132/79
[2020-02-28] MEDS: ALBUTEROL SULFATE 2.5 MG/3 ML NPPB SCH ×2 (08:01→19:48)
[2020-02-28] MEDS: INSULIN LISPRO 100 UNITS/ML, PEN SQ-INSULIN SCH ×2 (08:03→11:00)
[2020-02-28] MEDS: POLYETHYLENE GLYCOL 17 GM PACKET PO SCH ×3 (09:08→20:08)
[2020-02-28] MEDS: AMIODARONE 200 MG TABLET PO SCH (09:08)
[2020-02-28] MEDS: SENNA/DOCUSATE TABLET PO SCH (09:09)
[2020-02-28] MEDS: SODIUM CHLORIDE FLUSH 10ML SYR IVF SCH (09:10)
[2020-02-28] MEDS: DAPTOMYCIN 450 MG in SODIUM CHLORIDE 0.9% 100 ML IV SCH (09:31)
[2020-02-28 11:30] VITALS: BP 101/69
[2020-02-28 14:44] LABS: ALANINE AMINOTRANSFERASE 32 U/L (12-78); ALBUMIN 1.5 g/dL (3.4-5.0); ANION GAP 6 mmol/L (5-15); CALCIUM 7.7 mg/dL (8.5-10.1); CHLORIDE 105 mmol/L (98-107); CREATININE 0.82 mg/dL (0.7-1.3)
[2020-02-28 14:47] LABS: ALKALINE PHOSPHATASE 76 U/L (45-117); BILIRUBIN,TOTAL 0.5 mg/dL (0.2-1.0); CREATINE KINASE, TOTAL 37 U/L (39-308)
[2020-02-28 16:00] VITALS: BP 115/75
[2020-02-28 18:55] VITALS: BP 126/82
[2020-02-28] MEDS: SENNA 176 MG/5 ML ORAL SOL NG SCH (20:07)
[2020-02-29] MEDS: OXYcodone IR 5MG TABLET PO PRN ×5 (00:37→19:17)
[2020-02-29] MEDS: MEROPENEM 1 GM in SODIUM CHLORIDE 0.9% 100 ML IV SCH ×3 (01:24→18:25)
[2020-02-29] MEDS: OMEPRAZOLE 20 MG CAPSULE.DR PO SCH (05:01)
[2020-02-29] MEDS: ALBUTEROL SULFATE 2.5 MG/3 ML NPPB SCH ×2 (06:55→19:30)
[2020-02-29 07:53] VITALS: BP 122/64
[2020-02-29] MEDS: POLYETHYLENE GLYCOL 17 GM PACKET PO SCH ×3 (07:56→19:38)
[2020-02-29] MEDS: SENNA/DOCUSATE TABLET PO SCH (07:56)
[2020-02-29] MEDS: AMIODARONE 200 MG TABLET PO SCH (08:04)
[2020-02-29] MEDS: DAPTOMYCIN 450 MG in SODIUM CHLORIDE 0.9% 100 ML IV SCH (09:39)
[2020-02-29 13:14] VITALS: BP 129/78
[2020-02-29] MEDS ORDERED: OxyconTIN ER 20 MG TAB.ER PO PRN (13:30)
[2020-02-29 14:55] VITALS: BP 127/76
[2020-02-29 19:40] VITALS: BP 143/77
[2020-02-29] MEDS: SENNA 176 MG/5 ML ORAL SOL NG SCH (20:37)
[2020-03-01] MEDS: MEROPENEM 1 GM in SODIUM CHLORIDE 0.9% 100 ML IV SCH (02:08)
[2020-03-01] MEDS: OXYcodone IR 5MG TABLET PO PRN ×4 (02:19→23:52)
[2020-03-01 02:20] VITALS: BP 128/73
[2020-03-01] MEDS: OMEPRAZOLE 20 MG CAPSULE.DR PO SCH (04:56)
[2020-03-01] MEDS: ACETAMINOPHEN 325 MG TABLET PO PRN (04:56)
[2020-03-01 06:43] LABS: BASOPHILS # (AUTO) 0.06 x10^3/uL (0-0.1); BASOPHILS % (AUTO) 1 % (0-1); EOSINOPHILS # (AUTO) 0.35 x10^3/uL (0-0.4); EOSINOPHILS % (AUTO) 4 % (1-7); LYMPHOCYTES # (AUTO) 1.15 x10^3/uL (1-3.4); LYMPHOCYTES % (AUTO) 13 % (22-44); MD NO; MEAN CORPUSCULAR HEMOGLOBIN 27.7 pg (27.5-34.5); MEAN CORPUSCULAR VOLUME 84.1 fL (81-97); MEAN PLATELET VOLUME 6.6 fL (7.4-10.4); MONOCYTES # (AUTO) 0.61 x10^3/uL (0.2-0.8); MONOCYTES % (AUTO) 7 % (2-9); NEUTROPHILS % (AUTO) 76 % (42-75); PLATELET COUNT 355 x10^3/uL (130-400); RED CELL DISTRIBUTION WIDTH 15.3 % (9.4-14.8)
[2020-03-01 07:10] VITALS: BP 113/73
[2020-03-01] MEDS: metroNIDAZOLE 500 MG TABLET PO SCH ×3 (08:25→23:45)
[2020-03-01] MEDS: CEFAZOLIN PMX 2GM/50ML 50 ML IVPB SCH ×3 (08:25→23:46)
[2020-03-01] MEDS: POLYETHYLENE GLYCOL 17 GM PACKET PO SCH ×3 (08:25→21:00)
[2020-03-01] MEDS: SENNA/DOCUSATE TABLET PO SCH (08:25)
[2020-03-01] MEDS: ALBUTEROL SULFATE 2.5 MG/3 ML NPPB SCH ×2 (09:00→21:00)
[2020-03-01] MEDS ORDERED: LORazepam 2 MG/ML, 1ML IVPush ONE (11:30)
[2020-03-01 13:25] VITALS: BP 117/72
[2020-03-01] MEDS ORDERED: GADOTERATE 10 MMOL/20 ML SYR ONE (15:13)
[2020-03-01 18:55] VITALS: BP 134/83
[2020-03-01] MEDS: SENNA 176 MG/5 ML ORAL SOL NG SCH (20:17)
[2020-03-02 01:02] VITALS: BP 128/81
[2020-03-02] MEDS: OXYcodone IR 5MG TABLET PO PRN ×3 (05:53→18:00)
[2020-03-02] MEDS: OMEPRAZOLE 20 MG CAPSULE.DR PO SCH (05:53)
[2020-03-02 07:19] VITALS: BP 148/82
[2020-03-02] MEDS: POLYETHYLENE GLYCOL 17 GM PACKET PO SCH ×3 (08:35→21:00)
[2020-03-02] MEDS: SENNA/DOCUSATE TABLET PO SCH (08:35)
[2020-03-02] MEDS: metroNIDAZOLE 500 MG TABLET PO SCH ×2 (08:35→17:03)
[2020-03-02] MEDS: CEFAZOLIN PMX 2GM/50ML 50 ML IVPB SCH ×2 (08:35→17:03)
[2020-03-02] MEDS: ALBUTEROL SULFATE 2.5 MG/3 ML NPPB SCH ×2 (09:00→19:53)
[2020-03-02] MEDS: MULTIVITS,STRESS FORMULA 1 TABLET PO SCH (13:00)
[2020-03-02] MEDS: ZINC SULFATE 220 MG CAPSULE PO SCH (13:00)
[2020-03-02 13:13] VITALS: BP 132/83
[2020-03-02] MEDS ORDERED: FENTANYL PF 100 MCG/2ML ONE (15:34)
[2020-03-02] MEDS ORDERED: MIDAZOLAM 1 MG/ML, 5ML ONE (15:35)
[2020-03-02] MEDS ORDERED: FLUMAZENIL 0.1 MG/1 ML, 5ML ONE (15:35)
[2020-03-02] MEDS ORDERED: NALOXONE 1 MG/ML, 2ML ONE (15:35)
[2020-03-02] MEDS: CHOLECALCIFEROL 400 UNITS TABLET PO SCH (17:03)
[2020-03-02] MEDS: ASCORBIC ACID 500 MG TABLET PO SCH (17:24)
[2020-03-02 19:40] VITALS: BP 145/82
[2020-03-02] MEDS: SENNA 176 MG/5 ML ORAL SOL NG SCH (21:00)
[2020-03-02] MEDS: ENOXAPARIN 40 MG/0.4 ML SQ SCH (22:12)
[2020-03-02] MEDS: MELATONIN 5 MG TABLET PO SCH (22:12)
[2020-03-03] MEDS: ONDANSETRON 2MG/ML, 2ML IVPush PRN ×2 (00:45→10:23)
[2020-03-03] MEDS: OXYcodone IR 5MG TABLET PO PRN ×6 (00:45→22:37)
[2020-03-03] MEDS: CEFAZOLIN PMX 2GM/50ML 50 ML IVPB SCH ×3 (00:45→16:27)
[2020-03-03] MEDS: metroNIDAZOLE 500 MG TABLET PO SCH ×3 (00:45→16:24)
[2020-03-03 02:24] VITALS: BP 127/78
[2020-03-03] MEDS: OMEPRAZOLE 20 MG CAPSULE.DR PO SCH (05:52)
[2020-03-03] MEDS: ALBUTEROL SULFATE 2.5 MG/3 ML NPPB SCH ×3 (07:30→20:13)
[2020-03-03 08:00] VITALS: BP 123/76
[2020-03-03] MEDS: ASCORBIC ACID 500 MG TABLET PO SCH ×2 (08:26→16:23)
[2020-03-03] MEDS: POLYETHYLENE GLYCOL 17 GM PACKET PO SCH ×3 (08:26→21:00)
[2020-03-03] MEDS: SENNA/DOCUSATE TABLET PO SCH (08:26)
[2020-03-03] MEDS: MULTIVITS,STRESS FORMULA 1 TABLET PO SCH (08:26)
[2020-03-03] MEDS: ZINC SULFATE 220 MG CAPSULE PO SCH (08:27)
[2020-03-03 14:00] VITALS: BP 124/78
[2020-03-03] MEDS: CHOLECALCIFEROL 400 UNITS TABLET PO SCH (16:23)
[2020-03-03 19:07] VITALS: BP 119/77
[2020-03-03] MEDS: MELATONIN 5 MG TABLET PO SCH (21:00)
[2020-03-03] MEDS: SENNA 176 MG/5 ML ORAL SOL NG SCH (21:00)
[2020-03-03] MEDS: ENOXAPARIN 40 MG/0.4 ML SQ SCH (21:07)
[2020-03-04] MEDS: CEFAZOLIN PMX 2GM/50ML 50 ML IVPB SCH ×3 (00:35→16:56)
[2020-03-04] MEDS: metroNIDAZOLE 500 MG TABLET PO SCH ×3 (00:35→16:55)
[2020-03-04 02:49] VITALS: BP 148/91
[2020-03-04] MEDS: OXYcodone IR 5MG TABLET PO PRN ×5 (02:52→23:31)
[2020-03-04 03:04] VITALS: BP 127/69
[2020-03-04] MEDS: OMEPRAZOLE 20 MG CAPSULE.DR PO SCH (06:20)
[2020-03-04 07:20] VITALS: BP 112/73
[2020-03-04] MEDS: MULTIVITS,STRESS FORMULA 1 TABLET PO SCH (08:23)
[2020-03-04] MEDS: SENNA/DOCUSATE TABLET PO SCH (08:23)
[2020-03-04] MEDS: ZINC SULFATE 220 MG CAPSULE PO SCH (08:24)
[2020-03-04] MEDS: ASCORBIC ACID 500 MG TABLET PO SCH ×2 (08:24→16:55)
[2020-03-04] MEDS: POLYETHYLENE GLYCOL 17 GM PACKET PO SCH ×3 (09:00→20:14)
[2020-03-04] MEDS ORDERED: ALBUTEROL SULFATE 2.5 MG/3 ML NPPB PRN (09:30)
[2020-03-04 13:26] VITALS: BP 133/78
[2020-03-04] MEDS: CHOLECALCIFEROL 400 UNITS TABLET PO SCH (16:55)
[2020-03-04 18:53] VITALS: BP 125/80
[2020-03-04] MEDS: ENOXAPARIN 40 MG/0.4 ML SQ SCH (20:13)
[2020-03-04] MEDS: SENNA 176 MG/5 ML ORAL SOL NG SCH (20:14)
[2020-03-04] MEDS: MELATONIN 5 MG TABLET PO SCH (23:31)
[2020-03-05] MEDS: CEFAZOLIN PMX 2GM/50ML 50 ML IVPB SCH (00:39)
[2020-03-05] MEDS: metroNIDAZOLE 500 MG TABLET PO SCH (00:39)
[2020-03-05 00:40] VITALS: BP 125/75
[2020-03-05] MEDS: OXYcodone IR 5MG TABLET PO PRN ×4 (04:36→20:23)
[2020-03-05] MEDS: OMEPRAZOLE 20 MG CAPSULE.DR PO SCH (05:21)
[2020-03-05 05:48] LABS: HCT (SEDRATE) 23.2 % (39.2-51.8)
[2020-03-05 06:03] LABS: CREATININE 0.76 mg/dL (0.7-1.3)
[2020-03-05 07:25] VITALS: BP 134/81
[2020-03-05] MEDS: MULTIVITS,STRESS FORMULA 1 TABLET PO SCH (08:48)
[2020-03-05] MEDS: ZINC SULFATE 220 MG CAPSULE PO SCH (08:48)
[2020-03-05] MEDS: ASCORBIC ACID 500 MG TABLET PO SCH ×2 (08:49→16:52)
[2020-03-05] MEDS: SENNA/DOCUSATE TABLET PO SCH (08:49)
[2020-03-05] MEDS: POLYETHYLENE GLYCOL 17 GM PACKET PO SCH ×3 (08:49→20:14)
[2020-03-05 14:14] VITALS: BP 125/76
[2020-03-05] MEDS: CHOLECALCIFEROL 400 UNITS TABLET PO SCH (16:52)
[2020-03-05] MEDS: ERTAPENEM 1 GM in SODIUM CHLORIDE 0.9% 50 ML IV SCH (16:52)
[2020-03-05 19:42] VITALS: BP 143/88
[2020-03-05] MEDS: MELATONIN 5 MG TABLET PO SCH (20:14)
[2020-03-05] MEDS: ENOXAPARIN 40 MG/0.4 ML SQ SCH (20:14)
[2020-03-05] MEDS: SENNA 176 MG/5 ML ORAL SOL NG SCH (20:15)
[2020-03-06] MEDS: OXYcodone IR 5MG TABLET PO PRN ×6 (00:21→23:49)
[2020-03-06] MEDS: OMEPRAZOLE 20 MG CAPSULE.DR PO SCH (04:56)
[2020-03-06 05:11] LABS: BASOPHILS # (AUTO) 0.14 x10^3/uL (0-0.1); BASOPHILS % (AUTO) 2 % (0-1); EOSINOPHILS # (AUTO) 0.27 x10^3/uL (0-0.4); EOSINOPHILS % (AUTO) 4 % (1-7); LYMPHOCYTES % (AUTO) 20 % (22-44); MD NO; MEAN CORPUSCULAR HEMOGLOBIN 26.9 pg (27.5-34.5); MEAN CORPUSCULAR HGB CONC 32.1 g/dL (33.2-36.2); MEAN CORPUSCULAR VOLUME 83.9 fL (81-97); MEAN PLATELET VOLUME 6.3 fL (7.4-10.4); MONOCYTES # (AUTO) 0.52 x10^3/uL (0.2-0.8); MONOCYTES % (AUTO) 7 % (2-9); NEUTROPHILS % (AUTO) 68 % (42-75); PLATELET COUNT 483 x10^3/uL (130-400); RED BLOOD COUNT 2.94 x10^6/uL (4.38-5.82); RED CELL DISTRIBUTION WIDTH 16.6 % (9.4-14.8)
[2020-03-06 05:25] LABS: ALBUMIN 1.8 g/dL (3.4-5.0); ANION GAP 7 mmol/L (5-15); CHLORIDE 101 mmol/L (98-107)
[2020-03-06 05:27] LABS: CREATININE 0.72 mg/dL (0.7-1.3)
[2020-03-06 07:58] VITALS: BP 144/77
[2020-03-06] MEDS: POLYETHYLENE GLYCOL 17 GM PACKET PO SCH ×3 (09:32→19:47)
[2020-03-06] MEDS: SENNA/DOCUSATE TABLET PO SCH (09:33)
[2020-03-06] MEDS: ASCORBIC ACID 500 MG TABLET PO SCH ×2 (09:34→16:50)
[2020-03-06] MEDS: MULTIVITS,STRESS FORMULA 1 TABLET PO SCH (09:34)
[2020-03-06] MEDS: ZINC SULFATE 220 MG CAPSULE PO SCH (09:34)
[2020-03-06 13:23] VITALS: BP 138/85
[2020-03-06] MEDS: ERTAPENEM 1 GM in SODIUM CHLORIDE 0.9% 50 ML IV SCH (16:48)
[2020-03-06] MEDS: CHOLECALCIFEROL 400 UNITS TABLET PO SCH (16:50)
[2020-03-06 19:17] VITALS: BP 162/94
[2020-03-06] MEDS: ENOXAPARIN 40 MG/0.4 ML SQ SCH (19:46)
[2020-03-06] MEDS: SENNA 176 MG/5 ML ORAL SOL NG SCH (19:46)
[2020-03-06] MEDS: MELATONIN 5 MG TABLET PO SCH (19:47)
[2020-03-07] MEDS: OMEPRAZOLE 20 MG CAPSULE.DR PO SCH (05:18)
[2020-03-07] MEDS: OXYcodone IR 5MG TABLET PO PRN ×7 (05:19→21:49)
[2020-03-07 08:12] VITALS: BP 136/79
[2020-03-07] MEDS: ASCORBIC ACID 500 MG TABLET PO SCH ×2 (08:31→16:18)
[2020-03-07] MEDS: MULTIVITS,STRESS FORMULA 1 TABLET PO SCH (08:31)
[2020-03-07] MEDS: ZINC SULFATE 220 MG CAPSULE PO SCH (08:32)
[2020-03-07] MEDS: SENNA/DOCUSATE TABLET PO SCH ×2 (08:33→08:35)
[2020-03-07] MEDS: POLYETHYLENE GLYCOL 17 GM PACKET PO SCH ×4 (08:33→21:00)
[2020-03-07 13:58] VITALS: BP 113/49
[2020-03-07 15:08] VITALS: BP 154/81
[2020-03-07] MEDS: ERTAPENEM 1 GM in SODIUM CHLORIDE 0.9% 50 ML IV SCH (16:18)
[2020-03-07] MEDS: CHOLECALCIFEROL 400 UNITS TABLET PO SCH (16:19)
[2020-03-07 19:10] VITALS: BP 130/80
[2020-03-07] MEDS: SENNA 176 MG/5 ML ORAL SOL NG SCH (21:00)
[2020-03-07] MEDS: MELATONIN 5 MG TABLET PO SCH (21:00)
[2020-03-07] MEDS: ENOXAPARIN 40 MG/0.4 ML SQ SCH (21:49)
[2020-03-08] MEDS: OXYcodone IR 5MG TABLET PO PRN ×4 (01:52→20:03)
[2020-03-08] MEDS: OMEPRAZOLE 20 MG CAPSULE.DR PO SCH (05:55)
[2020-03-08 06:20] LABS: BASOPHILS # (AUTO) 0.02 x10^3/uL (0-0.1); BASOPHILS % (AUTO) 0 % (0-1); EOSINOPHILS % (AUTO) 3 % (1-7); HCT (SEDRATE) 29.1 % (39.2-51.8); LYMPHOCYTES # (AUTO) 1.47 x10^3/uL (1-3.4); LYMPHOCYTES % (AUTO) 21 % (22-44); MD NO; MEAN CORPUSCULAR HEMOGLOBIN 26.5 pg (27.5-34.5); MEAN CORPUSCULAR HGB CONC 31.6 g/dL (33.2-36.2); MEAN PLATELET VOLUME 6.4 fL (7.4-10.4); MONOCYTES # (AUTO) 0.38 x10^3/uL (0.2-0.8); MONOCYTES % (AUTO) 5 % (2-9); NEUTROPHILS # (AUTO) 4.94 x10^3/uL (1.8-6.8); NEUTROPHILS % (AUTO) 70 % (42-75); PLATELET COUNT 473 x10^3/uL (130-400); RED BLOOD COUNT 3.56 x10^6/uL (4.38-5.82); RED CELL DISTRIBUTION WIDTH 16.6 % (9.4-14.8)
[2020-03-08 06:31] LABS: ALBUMIN 1.9 g/dL (3.4-5.0); ANION GAP 5 mmol/L (5-15); CALCIUM 8.6 mg/dL (8.5-10.1); CHLORIDE 104 mmol/L (98-107)
[2020-03-08 06:39] LABS: ALANINE AMINOTRANSFERASE 17 U/L (12-78); ALKALINE PHOSPHATASE 186 U/L (45-117); BILIRUBIN,TOTAL 0.4 mg/dL (0.2-1.0); CREATININE 0.65 mg/dL (0.7-1.3); TOTAL PROTEIN 6.3 g/dL (6.4-8.2)
[2020-03-08 07:40] VITALS: BP 148/89
[2020-03-08] MEDS: MULTIVITS,STRESS FORMULA 1 TABLET PO SCH (09:40)
[2020-03-08] MEDS: SENNA/DOCUSATE TABLET PO SCH (09:41)
[2020-03-08] MEDS: POLYETHYLENE GLYCOL 17 GM PACKET PO SCH ×3 (09:41→21:00)
[2020-03-08] MEDS: ZINC SULFATE 220 MG CAPSULE PO SCH (09:41)
[2020-03-08] MEDS: ASCORBIC ACID 500 MG TABLET PO SCH ×2 (09:41→16:04)
[2020-03-08] MEDS: ERTAPENEM 1 GM in SODIUM CHLORIDE 0.9% 50 ML IV SCH (16:04)
[2020-03-08] MEDS: CHOLECALCIFEROL 400 UNITS TABLET PO SCH (16:04)
[2020-03-08 17:09] VITALS: BP 147/95
[2020-03-08 18:35] VITALS: BP 139/84
[2020-03-08] MEDS: SENNA 176 MG/5 ML ORAL SOL NG SCH (21:00)
[2020-03-08] MEDS: MELATONIN 5 MG TABLET PO SCH (21:00)
[2020-03-08] MEDS: ENOXAPARIN 40 MG/0.4 ML SQ SCH (22:53)
[2020-03-09] MEDS: OXYcodone IR 5MG TABLET PO PRN ×6 (00:29→23:16)
[2020-03-09] MEDS: OMEPRAZOLE 20 MG CAPSULE.DR PO SCH (05:52)
[2020-03-09 06:47] LABS: BASOPHILS # (AUTO) 0.04 x10^3/uL (0-0.1); BASOPHILS % (AUTO) 1 % (0-1); EOSINOPHILS # (AUTO) 0.26 x10^3/uL (0-0.4); EOSINOPHILS % (AUTO) 3 % (1-7); LYMPHOCYTES # (AUTO) 1.96 x10^3/uL (1-3.4); LYMPHOCYTES % (AUTO) 25 % (22-44); MD NO; MEAN CORPUSCULAR HEMOGLOBIN 27.1 pg (27.5-34.5); MEAN CORPUSCULAR HGB CONC 32.6 g/dL (33.2-36.2); MEAN CORPUSCULAR VOLUME 83.3 fL (81-97); MEAN PLATELET VOLUME 6.4 fL (7.4-10.4); MONOCYTES # (AUTO) 0.47 x10^3/uL (0.2-0.8); MONOCYTES % (AUTO) 6 % (2-9); NEUTROPHILS # (AUTO) 5.22 x10^3/uL (1.8-6.8); NEUTROPHILS % (AUTO) 66 % (42-75); PLATELET COUNT 528 x10^3/uL (130-400); RED BLOOD COUNT 3.13 x10^6/uL (4.38-5.82)
[2020-03-09 06:53] LABS: ANION GAP 5 mmol/L (5-15); CHLORIDE 105 mmol/L (98-107); CREATININE 0.64 mg/dL (0.7-1.3)
[2020-03-09 07:34] VITALS: BP 135/86
[2020-03-09] MEDS: POLYETHYLENE GLYCOL 17 GM PACKET PO SCH ×3 (09:00→21:00)
[2020-03-09] MEDS: MULTIVITS,STRESS FORMULA 1 TABLET PO SCH (09:09)
[2020-03-09] MEDS: ASCORBIC ACID 500 MG TABLET PO SCH ×2 (09:09→16:56)
[2020-03-09] MEDS: SENNA/DOCUSATE TABLET PO SCH (09:09)
[2020-03-09] MEDS: ZINC SULFATE 220 MG CAPSULE PO SCH (09:09)
[2020-03-09 15:20] VITALS: BP 185/85
[2020-03-09] MEDS: ERTAPENEM 1 GM in SODIUM CHLORIDE 0.9% 50 ML IV SCH (16:55)
[2020-03-09] MEDS: CHOLECALCIFEROL 400 UNITS TABLET PO SCH (17:29)
[2020-03-09 18:42] VITALS: BP 136/81
[2020-03-09] MEDS: SENNA 176 MG/5 ML ORAL SOL NG SCH (21:00)
[2020-03-09] MEDS: MELATONIN 5 MG TABLET PO SCH (21:00)
[2020-03-09] MEDS: ENOXAPARIN 40 MG/0.4 ML SQ SCH (23:16)
[2020-03-10 01:19] VITALS: BP 131/82
[2020-03-10] MEDS: OXYcodone IR 5MG TABLET PO PRN ×3 (05:50→23:23)
[2020-03-10] MEDS: OMEPRAZOLE 20 MG CAPSULE.DR PO SCH (06:00)
[2020-03-10 06:31] LABS: BASOPHILS # (AUTO) 0.04 x10^3/uL (0-0.1); BASOPHILS % (AUTO) 1 % (0-1); EOSINOPHILS # (AUTO) 0.26 x10^3/uL (0-0.4); EOSINOPHILS % (AUTO) 3 % (1-7); LYMPHOCYTES % (AUTO) 22 % (22-44); MD NO; MEAN CORPUSCULAR HEMOGLOBIN 26.6 pg (27.5-34.5); MEAN CORPUSCULAR HGB CONC 31.6 g/dL (33.2-36.2); MEAN CORPUSCULAR VOLUME 84.2 fL (81-97); MEAN PLATELET VOLUME 6.2 fL (7.4-10.4); MONOCYTES # (AUTO) 0.65 x10^3/uL (0.2-0.8); MONOCYTES % (AUTO) 8 % (2-9); NEUTROPHILS # (AUTO) 5.27 x10^3/uL (1.8-6.8); NEUTROPHILS % (AUTO) 67 % (42-75); PLATELET COUNT 538 x10^3/uL (130-400); RED BLOOD COUNT 3.18 x10^6/uL (4.38-5.82); RED CELL DISTRIBUTION WIDTH 17.4 % (9.4-14.8)
[2020-03-10 06:39] LABS: ANION GAP 6 mmol/L (5-15); CALCIUM 8.9 mg/dL (8.5-10.1); CHLORIDE 105 mmol/L (98-107)
[2020-03-10 06:41] LABS: CREATININE 0.73 mg/dL (0.7-1.3)
[2020-03-10] MEDS ORDERED: HYDROmorphone 1 MG/ML, 1ML INJ IVPush PRN (07:30)
[2020-03-10] MEDS ORDERED: OXYcodone 5 MG/5 ML ORAL.SOL UDC PO PRN (07:30)
[2020-03-10] MEDS ORDERED: ONDANSETRON 2MG/ML, 2ML IVPush PRN (07:30)
[2020-03-10] MEDS ORDERED: LABETALOL 5MG/ML, 20ML IV PRN (07:30)
[2020-03-10] MEDS ORDERED: FENTANYL PF 100 MCG/2ML IV PRN (07:30)
[2020-03-10] MEDS ORDERED: hydrALAzine 20 MG/ML, 1ML IV PRN (07:30)
[2020-03-10] MEDS ORDERED: MEPERIDINE/PF 25MG/0.5ML IVPush PRN (07:30)
[2020-03-10] MEDS ORDERED: EPHEDRINE 50 MG/ML, 1ML IVPush PRN (07:30)
[2020-03-10] MEDS ORDERED: PROMETHAZINE 25 MG/ML, 1ML IVPush PRN (07:30)
[2020-03-10 08:00] VITALS: BP 129/80
[2020-03-10] MEDS: ASCORBIC ACID 500 MG TABLET PO SCH ×2 (08:00→16:56)
[2020-03-10] MEDS: ZINC SULFATE 220 MG CAPSULE PO SCH (08:03)
[2020-03-10] MEDS: POLYETHYLENE GLYCOL 17 GM PACKET PO SCH ×3 (08:03→20:34)
[2020-03-10] MEDS: SENNA/DOCUSATE TABLET PO SCH (08:03)
[2020-03-10] MEDS: MULTIVITS,STRESS FORMULA 1 TABLET PO SCH (08:03)
[2020-03-10] MEDS ORDERED: MIDAZOLAM 1 MG/ML, 2ML ONE (09:29)
[2020-03-10] MEDS ORDERED: FENTANYL PF 100 MCG/2ML ONE ×2 (09:29→13:20)
[2020-03-10] MEDS ORDERED: PROPOFOL 10 MG/ML, 20ML ONE ×2 (09:31→12:57)
[2020-03-10] MEDS ORDERED: ONDANSETRON 2MG/ML, 2ML ONE ×3 (09:31→12:58)
[2020-03-10] MEDS ORDERED: LIDOCAINE-MPF 2% ,5ML ONE ×2 (09:31→12:57)
[2020-03-10] MEDS ORDERED: KETOROLAC 30 MG/1 ML ONE ×2 (09:31→12:58)
[2020-03-10] MEDS ORDERED: DEXAMETHASONE 4 MG/ML, 1ML ONE ×4 (09:32→12:58)
[2020-03-10] MEDS ORDERED: CHLORHEXIDINE 15 ML UDC MM ONE (12:30)
[2020-03-10] MEDS ORDERED: GABAPENTIN 300 MG CAPSULE PO ONE (12:30)
[2020-03-10] MEDS ORDERED: ACETAMINOPHEN 500 MG TABLET PO ONE (12:30)
[2020-03-10] MEDS ORDERED: ACETAMINOPHEN 500 MG TABLET ONE (12:41)
[2020-03-10] MEDS: ERTAPENEM 1 GM in SODIUM CHLORIDE 0.9% 50 ML IV SCH (16:55)
[2020-03-10] MEDS: CHOLECALCIFEROL 400 UNITS TABLET PO SCH (16:55)
[2020-03-10 20:00] VITALS: BP 136/89
[2020-03-10] MEDS: SENNA 176 MG/5 ML ORAL SOL NG SCH (20:31)
[2020-03-10] MEDS: ALBUTEROL HFA 90 MCG/SPRAY INH SCH (20:33)
[2020-03-10] MEDS: ENOXAPARIN 40 MG/0.4 ML SQ SCH (20:34)
[2020-03-10] MEDS: MELATONIN 5 MG TABLET PO SCH ×2 (20:34→20:35)
[2020-03-11 01:38] VITALS: BP 144/80
[2020-03-11] MEDS: OXYcodone IR 5MG TABLET PO PRN ×5 (05:03→23:14)
[2020-03-11] MEDS: OMEPRAZOLE 20 MG CAPSULE.DR PO SCH (05:03)
[2020-03-11 05:13] LABS: BASOPHILS # (AUTO) 0.07 x10^3/uL (0-0.1); BASOPHILS % (AUTO) 1 % (0-1); EOSINOPHILS % (AUTO) 0 % (1-7); LYMPHOCYTES # (AUTO) 1.34 x10^3/uL (1-3.4); LYMPHOCYTES % (AUTO) 18 % (22-44); MD NO; MEAN CORPUSCULAR HEMOGLOBIN 27.1 pg (27.5-34.5); MEAN CORPUSCULAR HGB CONC 32.7 g/dL (33.2-36.2); MEAN PLATELET VOLUME 6.4 fL (7.4-10.4); MONOCYTES # (AUTO) 0.41 x10^3/uL (0.2-0.8); MONOCYTES % (AUTO) 5 % (2-9); NEUTROPHILS # (AUTO) 5.82 x10^3/uL (1.8-6.8); NEUTROPHILS % (AUTO) 76 % (42-75); PLATELET COUNT 551 x10^3/uL (130-400); RED BLOOD COUNT 2.83 x10^6/uL (4.38-5.82)
[2020-03-11 05:23] LABS: ANION GAP 4 mmol/L (5-15); CALCIUM 8.1 mg/dL (8.5-10.1); CHLORIDE 103 mmol/L (98-107)
[2020-03-11 05:26] LABS: CREATININE 0.66 mg/dL (0.7-1.3)
[2020-03-11 07:50] VITALS: BP 122/76
[2020-03-11] MEDS: POLYETHYLENE GLYCOL 17 GM PACKET PO SCH ×3 (09:26→21:00)
[2020-03-11] MEDS: SENNA/DOCUSATE TABLET PO SCH (09:27)
[2020-03-11] MEDS: MULTIVITS,STRESS FORMULA 1 TABLET PO SCH (09:27)
[2020-03-11] MEDS: ASCORBIC ACID 500 MG TABLET PO SCH ×2 (09:27→16:43)
[2020-03-11] MEDS: ZINC SULFATE 220 MG CAPSULE PO SCH (09:27)
[2020-03-11] MEDS: ALBUTEROL HFA 90 MCG/SPRAY INH SCH ×2 (09:27→23:05)
[2020-03-11 12:34] VITALS: BP 116/73
[2020-03-11] MEDS ORDERED: MULT1TAB76 PO (14:51)
[2020-03-11] MEDS ORDERED: CHOL400T2 PO (14:51)
[2020-03-11] MEDS ORDERED: ASCO500T9 PO (14:51)
[2020-03-11] MEDS ORDERED: ZINC220C7 PO (14:51)
[2020-03-11] MEDS ORDERED: ENOX40SY4 SQ ×2 (14:51)
[2020-03-11] MEDS ORDERED: ALPR0.254 PO (14:51)
[2020-03-11] MEDS ORDERED: MELA5TAB14 PO (14:51)
[2020-03-11] MEDS ORDERED: ERTA1VIA IV ×2 (14:51)
[2020-03-11] MEDS: CHOLECALCIFEROL 400 UNITS TABLET PO SCH (16:43)
[2020-03-11] MEDS: ERTAPENEM 1 GM in SODIUM CHLORIDE 0.9% 50 ML IV SCH (16:43)
[2020-03-11 18:24] VITALS: BP 101/64
[2020-03-11] MEDS: SENNA 176 MG/5 ML ORAL SOL NG SCH (21:00)
[2020-03-11] MEDS: MELATONIN 5 MG TABLET PO SCH (21:00)
[2020-03-11] MEDS: ENOXAPARIN 40 MG/0.4 ML SQ SCH (23:09)
[2020-03-12] MEDS: OXYcodone IR 5MG TABLET PO PRN ×5 (03:42→21:11)
[2020-03-12] MEDS: OMEPRAZOLE 20 MG CAPSULE.DR PO SCH (05:46)
[2020-03-12 06:14] LABS: ALANINE AMINOTRANSFERASE 19 U/L (12-78); ALBUMIN 1.9 g/dL (3.4-5.0); ANION GAP 6 mmol/L (5-15); CALCIUM 8.2 mg/dL (8.5-10.1); CHLORIDE 105 mmol/L (98-107); CREATININE 0.72 mg/dL (0.7-1.3)
[2020-03-12 06:17] LABS: ALKALINE PHOSPHATASE 119 U/L (45-117); BILIRUBIN,TOTAL 0.3 mg/dL (0.2-1.0); TOTAL PROTEIN 6.3 g/dL (6.4-8.2)
[2020-03-12] MEDS: SENNA/DOCUSATE TABLET PO SCH (07:52)
[2020-03-12] MEDS: ZINC SULFATE 220 MG CAPSULE PO SCH (07:52)
[2020-03-12] MEDS: MULTIVITS,STRESS FORMULA 1 TABLET PO SCH (07:52)
[2020-03-12] MEDS: ASCORBIC ACID 500 MG TABLET PO SCH ×2 (07:52→17:07)
[2020-03-12] MEDS: POLYETHYLENE GLYCOL 17 GM PACKET PO SCH ×3 (07:53→21:00)
[2020-03-12] MEDS: ALBUTEROL HFA 90 MCG/SPRAY INH SCH ×2 (07:58→21:13)
[2020-03-12 08:00] VITALS: BP 128/75
[2020-03-12] MEDS ORDERED: HEPARIN 5,000 UNITS/ML, 1ML IV ONE (12:30)
[2020-03-12 13:15] VITALS: BP 131/84
[2020-03-12 16:48] LABS: BASOPHILS # (AUTO) 0.07 x10^3/uL (0-0.1); BASOPHILS % (AUTO) 1 % (0-1); EOSINOPHILS # (AUTO) 0.16 x10^3/uL (0-0.4); EOSINOPHILS % (AUTO) 2 % (1-7); LYMPHOCYTES # (AUTO) 1.55 x10^3/uL (1-3.4); LYMPHOCYTES % (AUTO) 18 % (22-44); MD NO; MEAN CORPUSCULAR HEMOGLOBIN 26.7 pg (27.5-34.5); MEAN CORPUSCULAR VOLUME 83.3 fL (81-97); MEAN PLATELET VOLUME 5.9 fL (7.4-10.4); MONOCYTES # (AUTO) 0.71 x10^3/uL (0.2-0.8); MONOCYTES % (AUTO) 8 % (2-9); NEUTROPHILS # (AUTO) 6.18 x10^3/uL (1.8-6.8); NEUTROPHILS % (AUTO) 71 % (42-75); PLATELET COUNT 682 x10^3/uL (130-400); RED BLOOD COUNT 2.96 x10^6/uL (4.38-5.82); RED CELL DISTRIBUTION WIDTH 16.6 % (9.4-14.8)
[2020-03-12 18:36] VITALS: BP 137/78
[2020-03-12] MEDS: CHOLECALCIFEROL 400 UNITS TABLET PO SCH (19:09)
[2020-03-12] MEDS: ERTAPENEM 1 GM in SODIUM CHLORIDE 0.9% 50 ML IV SCH (19:09)
[2020-03-12] MEDS: HEPARIN 25,000 UNITS/250ML PMX 250 ML IV PRN (19:16)
[2020-03-12] MEDS: MELATONIN 5 MG TABLET PO SCH (21:00)
[2020-03-12] MEDS: SENNA 176 MG/5 ML ORAL SOL NG SCH (21:00)
[2020-03-13 01:45] VITALS: BP 145/86
[2020-03-13] MEDS: OXYcodone IR 5MG TABLET PO PRN ×5 (01:46→21:29)
[2020-03-13 02:01] LABS: ANION GAP 3 mmol/L (5-15); CALCIUM 8.5 mg/dL (8.5-10.1); CHLORIDE 105 mmol/L (98-107); CREATININE 0.65 mg/dL (0.7-1.3)
[2020-03-13 02:10] LABS: BASOPHILS # (AUTO) 0.03 x10^3/uL (0-0.1); BASOPHILS % (AUTO) 0 % (0-1); EOSINOPHILS # (AUTO) 0.15 x10^3/uL (0-0.4); EOSINOPHILS % (AUTO) 2 % (1-7); LYMPHOCYTES # (AUTO) 1.67 x10^3/uL (1-3.4); LYMPHOCYTES % (AUTO) 21 % (22-44); MD NO; MEAN CORPUSCULAR HEMOGLOBIN 26.8 pg (27.5-34.5); MEAN CORPUSCULAR HGB CONC 32.6 g/dL (33.2-36.2); MEAN CORPUSCULAR VOLUME 82.2 fL (81-97); MEAN PLATELET VOLUME 6.8 fL (7.4-10.4); MONOCYTES # (AUTO) 0.37 x10^3/uL (0.2-0.8); MONOCYTES % (AUTO) 5 % (2-9); NEUTROPHILS # (AUTO) 5.72 x10^3/uL (1.8-6.8); NEUTROPHILS % (AUTO) 72 % (42-75); PLATELET COUNT 549 x10^3/uL (130-400); RED BLOOD COUNT 3.58 x10^6/uL (4.38-5.82); RED CELL DISTRIBUTION WIDTH 17.3 % (9.4-14.8)
[2020-03-13] MEDS: HEPARIN 5,000 UNITS/ML, 1ML IV PRN ×3 (04:00→23:09)
[2020-03-13] MEDS: OMEPRAZOLE 20 MG CAPSULE.DR PO SCH (06:44)
[2020-03-13 07:26] VITALS: BP 127/83
[2020-03-13] MEDS: MULTIVITS,STRESS FORMULA 1 TABLET PO SCH (09:04)
[2020-03-13] MEDS: ZINC SULFATE 220 MG CAPSULE PO SCH (09:04)
[2020-03-13] MEDS: ASCORBIC ACID 500 MG TABLET PO SCH ×2 (09:04→15:56)
[2020-03-13] MEDS: POLYETHYLENE GLYCOL 17 GM PACKET PO SCH ×3 (09:04→21:28)
[2020-03-13] MEDS: SENNA/DOCUSATE TABLET PO SCH (09:04)
[2020-03-13] MEDS: ALBUTEROL HFA 90 MCG/SPRAY INH SCH ×2 (09:07→20:56)
[2020-03-13 13:01] VITALS: BP 134/81
[2020-03-13] MEDS: HEPARIN 25,000 UNITS/250ML PMX 250 ML IV PRN ×2 (14:17→15:51)
[2020-03-13] MEDS: CHOLECALCIFEROL 400 UNITS TABLET PO SCH (15:56)
[2020-03-13] MEDS: ERTAPENEM 1 GM in SODIUM CHLORIDE 0.9% 50 ML IV SCH (17:29)
[2020-03-13 19:46] VITALS: BP 144/88
[2020-03-13] MEDS: SENNA 176 MG/5 ML ORAL SOL NG SCH (20:57)
[2020-03-13] MEDS: MELATONIN 5 MG TABLET PO SCH (20:57)
[2020-03-14 01:08] VITALS: BP 145/91
[2020-03-14] MEDS: OXYcodone IR 5MG TABLET PO PRN ×6 (01:21→23:13)
[2020-03-14] MEDS: OMEPRAZOLE 20 MG CAPSULE.DR PO SCH (05:27)
[2020-03-14 05:54] LABS: BASOPHILS # (AUTO) 0.02 x10^3/uL (0-0.1); BASOPHILS % (AUTO) 0 % (0-1); EOSINOPHILS # (AUTO) 0.16 x10^3/uL (0-0.4); EOSINOPHILS % (AUTO) 1 % (1-7); LYMPHOCYTES % (AUTO) 20 % (22-44); MD NO; MEAN CORPUSCULAR HEMOGLOBIN 26.3 pg (27.5-34.5); MEAN CORPUSCULAR VOLUME 82.1 fL (81-97); MEAN PLATELET VOLUME 6.7 fL (7.4-10.4); MONOCYTES # (AUTO) 0.64 x10^3/uL (0.2-0.8); MONOCYTES % (AUTO) 6 % (2-9); NEUTROPHILS # (AUTO) 8.07 x10^3/uL (1.8-6.8); NEUTROPHILS % (AUTO) 73 % (42-75); PLATELET COUNT 666 x10^3/uL (130-400); RED BLOOD COUNT 3.15 x10^6/uL (4.38-5.82); RED CELL DISTRIBUTION WIDTH 16.9 % (9.4-14.8)
[2020-03-14 06:19] LABS: ANION GAP 4 mmol/L (5-15); CALCIUM 9.1 mg/dL (8.5-10.1); CHLORIDE 105 mmol/L (98-107)
[2020-03-14 06:20] LABS: CREATININE 0.66 mg/dL (0.7-1.3)
[2020-03-14] MEDS: HEPARIN 5,000 UNITS/ML, 1ML IV PRN (06:54)
[2020-03-14] MEDS: HEPARIN 25,000 UNITS/250ML PMX 250 ML IV PRN (06:55)
[2020-03-14 08:28] VITALS: BP 135/83
[2020-03-14] MEDS: POLYETHYLENE GLYCOL 17 GM PACKET PO SCH ×3 (09:56→21:16)
[2020-03-14] MEDS: ZINC SULFATE 220 MG CAPSULE PO SCH (09:56)
[2020-03-14] MEDS: ASCORBIC ACID 500 MG TABLET PO SCH ×2 (09:57→16:57)
[2020-03-14] MEDS: ALBUTEROL HFA 90 MCG/SPRAY INH SCH ×2 (09:57→21:16)
[2020-03-14] MEDS: SENNA/DOCUSATE TABLET PO SCH (09:57)
[2020-03-14] MEDS: MULTIVITS,STRESS FORMULA 1 TABLET PO SCH (09:57)
[2020-03-14 13:47] VITALS: BP 119/83
[2020-03-14] MEDS: CHOLECALCIFEROL 400 UNITS TABLET PO SCH (16:57)
[2020-03-14] MEDS: ERTAPENEM 1 GM in SODIUM CHLORIDE 0.9% 50 ML IV SCH (18:29)
[2020-03-14 19:58] VITALS: BP 146/84
[2020-03-14] MEDS: MELATONIN 5 MG TABLET PO SCH (21:16)
[2020-03-14] MEDS: SENNA 176 MG/5 ML ORAL SOL NG SCH (21:16)
[2020-03-14] MEDS: APIXABAN 5 MG TABLET PO SCH (21:20)
[2020-03-15] MEDS: OXYcodone IR 5MG TABLET PO PRN ×3 (03:15→13:49)
[2020-03-15 03:35] LABS: BASOPHILS # (AUTO) 0.01 x10^3/uL (0-0.1); BASOPHILS % (AUTO) 0 % (0-1); EOSINOPHILS # (AUTO) 0.19 x10^3/uL (0-0.4); EOSINOPHILS % (AUTO) 2 % (1-7); HCT (SEDRATE) 26.5 % (39.2-51.8); LYMPHOCYTES % (AUTO) 18 % (22-44); MD NO; MEAN CORPUSCULAR HEMOGLOBIN 26.2 pg (27.5-34.5); MEAN CORPUSCULAR HGB CONC 32.2 g/dL (33.2-36.2); MEAN CORPUSCULAR VOLUME 81.6 fL (81-97); MEAN PLATELET VOLUME 5.9 fL (7.4-10.4); MONOCYTES # (AUTO) 0.65 x10^3/uL (0.2-0.8); MONOCYTES % (AUTO) 6 % (2-9); NEUTROPHILS # (AUTO) 7.73 x10^3/uL (1.8-6.8); NEUTROPHILS % (AUTO) 74 % (42-75); PLATELET COUNT 742 x10^3/uL (130-400); RED BLOOD COUNT 3.22 x10^6/uL (4.38-5.82); RED CELL DISTRIBUTION WIDTH 16.9 % (9.4-14.8)
[2020-03-15 03:47] LABS: ALANINE AMINOTRANSFERASE 18 U/L (12-78); ANION GAP 7 mmol/L (5-15); CALCIUM 8.8 mg/dL (8.5-10.1); CHLORIDE 103 mmol/L (98-107); CREATININE 0.75 mg/dL (0.7-1.3)
[2020-03-15 03:53] LABS: ALKALINE PHOSPHATASE 112 U/L (45-117); BILIRUBIN,TOTAL 0.6 mg/dL (0.2-1.0); TOTAL PROTEIN 6.8 g/dL (6.4-8.2)
[2020-03-15] MEDS: OMEPRAZOLE 20 MG CAPSULE.DR PO SCH (06:13)
[2020-03-15 08:04] VITALS: BP 119/86
[2020-03-15] MEDS: APIXABAN 5 MG TABLET PO SCH (09:06)
[2020-03-15] MEDS: ALBUTEROL HFA 90 MCG/SPRAY INH SCH (09:07)
[2020-03-15] MEDS: SENNA/DOCUSATE TABLET PO SCH (09:07)
[2020-03-15] MEDS: ZINC SULFATE 220 MG CAPSULE PO SCH (09:07)
[2020-03-15] MEDS: ASCORBIC ACID 500 MG TABLET PO SCH (09:07)
[2020-03-15] MEDS: MULTIVITS,STRESS FORMULA 1 TABLET PO SCH (09:07)
[2020-03-15] MEDS: POLYETHYLENE GLYCOL 17 GM PACKET PO SCH (10:21)
[2020-03-15] MEDS ORDERED: APIX5TAB PO (11:10)
[2020-03-15] MEDS ORDERED: ERTA1VIA IV (11:13)
[2020-03-15] MEDS ORDERED: OXYC5TAB3 PO (11:14)
[2020-03-15 13:55] VITALS: BP 136/85
== END 2020-03-15 16:31 | DRG 853 ==
LOC: ED 16:48 → OBSVTOIN 17:32 → EDIP 17:32 → INTOOBSV 17:32 → CCU 18:18 → 4WST 02-14 16:00 → 4NE 02-29 14:45
PROVIDERS: ADMIT Obstetrics & Gynecology; ATTEND Obstetrics & Gynecology
PROC: 5A1945Z Respiratory Ventilation, 24-96 Consecutive Hours (ICD-10-PCS; 2020-02-09)
PROC: 0BH17EZ Insertion of Endotracheal Airway into Trachea, Via Natural or Artificial Opening (ICD-10-PCS; 2020-02-09)
PROC: 05HY33Z Insertion of Infusion Device into Upper Vein, Percutaneous Approach (ICD-10-PCS; 2020-02-09)
PROC: 02HV33Z Insertion of Infusion Device into Superior Vena Cava, Percutaneous Approach (ICD-10-PCS; 2020-02-10)
PROC: B548ZZA Ultrasonography of Superior Vena Cava, Guidance (ICD-10-PCS; 2020-02-10)
PROC: 0QB60ZZ Excision of Right Upper Femur, Open Approach (ICD-10-PCS; 2020-02-11)
PROC: 06H03DZ Insertion of Intraluminal Device into Inferior Vena Cava, Percutaneous Approach (ICD-10-PCS; principal; 2020-02-11 17:00)
PROC: 0J9L3ZX Drainage of Right Upper Leg Subcutaneous Tissue and Fascia, Percutaneous Approach, Diagnostic (ICD-10-PCS; 2020-02-19)
PROC: 02HV33Z Insertion of Infusion Device into Superior Vena Cava, Percutaneous Approach (ICD-10-PCS; 2020-02-20)
PROC: B5181ZA Fluoroscopy of Superior Vena Cava using Low Osmolar Contrast, Guidance (ICD-10-PCS; 2020-02-20)
PROC: B548ZZA Ultrasonography of Superior Vena Cava, Guidance (ICD-10-PCS; 2020-02-20)
PROC: 0Y9C30Z Drainage of Right Upper Leg with Drainage Device, Percutaneous Approach (ICD-10-PCS; 2020-02-24)
PROC: 0J9L0ZZ Drainage of Right Upper Leg Subcutaneous Tissue and Fascia, Open Approach (ICD-10-PCS; 2020-03-05)
PROC: 0QB60ZZ Excision of Right Upper Femur, Open Approach (ICD-10-PCS; 2020-03-10)
PROC: 5A1D70Z Performance of Urinary Filtration, Intermittent, Less than 6 Hours Per Day (ICD-10-PCS; 2020-03-11)
PROC: 5A1D70Z Performance of Urinary Filtration, Intermittent, Less than 6 Hours Per Day (ICD-10-PCS; 2020-03-12)
PROC: 5A1D70Z Performance of Urinary Filtration, Intermittent, Less than 6 Hours Per Day (ICD-10-PCS; 2020-03-13)
PROC: 5A1D70Z Performance of Urinary Filtration, Intermittent, Less than 6 Hours Per Day (ICD-10-PCS; 2020-03-14)
PROC: 5A1D70Z Performance of Urinary Filtration, Intermittent, Less than 6 Hours Per Day (ICD-10-PCS; 2020-03-15)
DX: A41.4 Sepsis due to anaerobes (principal); I21.A1 Myocardial infarction type 2; R65.21 Severe sepsis with septic shock; G93.41 Metabolic encephalopathy; N17.0 Acute kidney failure with tubular necrosis; J96.01 Acute respiratory failure with hypoxia; M72.6 Necrotizing fasciitis; E43 Unspecified severe protein-calorie malnutrition; J15.0 Pneumonia due to Klebsiella pneumoniae; L02.415 Cutaneous abscess of right lower limb; L03.115 Cellulitis of right lower limb; I82.431 Acute embolism and thrombosis of right popliteal vein; I82.441 Acute embolism and thrombosis of right tibial vein; I82.451 Acute embolism and thrombosis of right peroneal vein; I82.411 Acute embolism and thrombosis of right femoral vein; M60.009 Infective myositis, unspecified site; M86.8X5 Other osteomyelitis, thigh; Z99.11 Dependence on respirator [ventilator] status; J44.0 Chronic obstructive pulmonary disease with (acute) lower respiratory infection; E66.9 Obesity, unspecified; F14.90 Cocaine use, unspecified, uncomplicated; E11.69 Type 2 diabetes mellitus with other specified complication; D69.6 Thrombocytopenia, unspecified; E11.65 Type 2 diabetes mellitus with hyperglycemia; D72.823 Leukemoid reaction; B95.61 Methicillin susceptible Staphylococcus aureus infection as the cause of diseases classified elsewhere; B96.1 Klebsiella pneumoniae [K. pneumoniae] as the cause of diseases classified elsewhere; D50.9 Iron deficiency anemia, unspecified; G47.00 Insomnia, unspecified; I10 Essential (primary) hypertension; Z66 Do not resuscitate; Z20.828 Contact with and (suspected) exposure to other viral communicable diseases; E78.5 Hyperlipidemia, unspecified; I48.91 Unspecified atrial fibrillation; T38.0X5A Adverse effect of glucocorticoids and synthetic analogues, initial encounter; K59.03 Drug induced constipation; L27.0 Generalized skin eruption due to drugs and medicaments taken internally; L29.9 Pruritus, unspecified; T40.605A Adverse effect of unspecified narcotics, initial encounter; D63.8 Anemia in other chronic diseases classified elsewhere; K21.9 Gastro-esophageal reflux disease without esophagitis; Z83.3 Family history of diabetes mellitus; Z82.49 Family history of ischemic heart disease and other diseases of the circulatory system; Z90.89 Acquired absence of other organs; Z79.899 Other long term (current) drug therapy; Y92.89 Other specified places as the place of occurrence of the external cause; Z68.32 Body mass index [BMI] 32.0-32.9, adult
CPT/HCPCS: 10030; 36415; 36600; 73552; 75989; 77001; 82805; 84145; 96361; 96365; 96367; 96375; 99291; J3490; J7613; J7644; 36556; 36573; 37191; 71045; 71275; 74176; 74177; 76942; 80048; 80053; 80069; 80307; 81001; 82550; 82565; 82570; 82803; 82962; 83036; 83540; 83550; 83605; 83615; 83690; 83735; 83880; 83970; 84100; 84134; 84156; 84300; 84443; 84478; 84484; 84550; 85014; 85018; 85025; 85049; 85379; 85384; 85520; 85610; 85651; 85730; 86038; 86140; 86705; 86706; 87015; 87040; 87070; 87075; 87077; 87081; 87086; 87102; 87116; 87147; 87186; 87205; 87206; 87340; 87635; 90935; 93005; 93306; 94002; 94003; 94150; 94640; C1729; C1880; C1894; G0378; J0456; J0610; J0690; J0696; J0878; J1100; J1335; J1644; J1650; J1756; J1815; J1885; J2185; J2250; J2405; J2543; J2704; J2783; J3010; J7060; J7070; P9047; Q9966; Q9967; A9575; C1751; C1769; C9113; J0282; J1200; J1642; J1720; J2060; J2270; J2310; J2765; J2920; J2930; J7030; J7050; J7512

== ENCOUNTER 2020-03-25 11:01 | Inpatient (IN) | payer MEDICAID ==
[~2020-03-25] VITALS: Ht 185.4 cm; Wt 89.0 kg
[~2020-03-25 11:01] MED LIST changes: +ALPR0.254 PO; +APIX5TAB PO; +ASCO500T9 PO; +CHOL400T2 PO; +ENOX40SY4 SQ; +ERTA1VIA IV; +FLEXERIL; +IBUPROFEN; +KETORALAC; +MELA5TAB14 PO; +MULT1TAB76 PO; +NORCO; +OXYC5TAB3 PO; +ZINC220C7 PO
[2020-03-25] MEDS ORDERED: SODIUM CHLORIDE FLUSH 10ML SYR IVF ONE (11:30)
--- NOTE | 2020-03-25 11:37 | NUR ---
PER PA FROM [facility], KEEP PT NPO. PT WILL HAVE SURGERY TODAY, SOON PA FINDS A SURGEON.
[2020-03-25] MEDS ORDERED: ERTAPENEM 1 GM in SODIUM CHLORIDE 0.9% 50 ML IV ONE (11:45)
[2020-03-25 11:52] LABS: BASOPHILS # (AUTO) 0.07 x10^3/uL (0-0.1); BASOPHILS % (AUTO) 1 % (0-1); EOSINOPHILS # (AUTO) 0.26 x10^3/uL (0-0.4); EOSINOPHILS % (AUTO) 2 % (1-7); LYMPHOCYTES # (AUTO) 1.54 x10^3/uL (1-3.4); LYMPHOCYTES % (AUTO) 13 % (22-44); MD NO; MEAN CORPUSCULAR HEMOGLOBIN 24.3 pg (27.5-34.5); MEAN CORPUSCULAR HGB CONC 31.3 g/dL (33.2-36.2); MEAN CORPUSCULAR VOLUME 77.8 fL (81-97); MEAN PLATELET VOLUME 5.9 fL (7.4-10.4); MONOCYTES # (AUTO) 0.63 x10^3/uL (0.2-0.8); MONOCYTES % (AUTO) 5 % (2-9); NEUTROPHILS # (AUTO) 9.66 x10^3/uL (1.8-6.8); NEUTROPHILS % (AUTO) 79 % (42-75); PLATELET COUNT 772 x10^3/uL (130-400); RED BLOOD COUNT 3.83 x10^6/uL (4.38-5.82); RED CELL DISTRIBUTION WIDTH 17.9 % (9.4-14.8)
[2020-03-25] MEDS ORDERED: OXYcodone/APAP 5/325MG TABLET ONE (11:58)
[2020-03-25] MEDS ORDERED: OXYcodone/APAP 5/325MG TABLET PO ONE (12:00)
--- NOTE | 2020-03-25 12:03 | NUR ---
CHIEF COOK PER MAR
[2020-03-25 12:04] LABS: ALANINE AMINOTRANSFERASE 16 U/L (12-78); ALBUMIN 2.5 g/dL (3.4-5.0); ANION GAP 8 mmol/L (5-15); CALCIUM 9.4 mg/dL (8.5-10.1); CHLORIDE 106 mmol/L (98-107)
[2020-03-25 12:11] LABS: ALKALINE PHOSPHATASE 121 U/L (45-117); BILIRUBIN,TOTAL 0.4 mg/dL (0.2-1.0); CREATININE 0.71 mg/dL (0.7-1.3); TOTAL PROTEIN 7.5 g/dL (6.4-8.2)
[2020-03-25 12:28] LABS: HCT (SEDRATE) 29.8 % (39.2-51.8)
[2020-03-25] MEDS ORDERED: MOMETASONE INH PRN (13:00)
[2020-03-25] MEDS ORDERED: FORMOTEROL INH PRN (13:00)
--- NOTE | 2020-03-25 13:02 | NUR ---
REPORT GIVEN TO ANAHI GARCIA. REPORT GIVEN TO GIZZARD PULLER. SURGERY AT 1500, OR WILL PICK PT UP AT 1400
[2020-03-25] MEDS ORDERED: ACETAMINOPHEN 325 MG TABLET PO PRN ×2 (13:30→15:00)
[2020-03-25] MEDS ORDERED: ONDANSETRON ODT 4 MG PO PRN (13:30)
[2020-03-25] MEDS: ERTAPENEM 1 GM in SODIUM CHLORIDE 0.9% 50 ML IV SCH (13:30)
[2020-03-25] MEDS ORDERED: ENALAPRILAT 1.25 MG/ML, 2ML IVPush PRN (13:30)
[2020-03-25 13:41] LABS: INTERNATIONAL NORMALIZED RATIO 1.07 (0.93-1.1); PROTHROMBIN TIME 11.4 Seconds (9.6-11.5)
[2020-03-25 13:51] VITALS: BP 143/85
[2020-03-25] MEDS ORDERED: CHLORHEXIDINE 15 ML UDC MM ONE (14:00)
[2020-03-25] MEDS ORDERED: CHLORHEXIDINE 15 ML UDC ONE (14:05)
[2020-03-25] MEDS ORDERED: ONDANSETRON 2MG/ML, 2ML IVPush PRN (15:00)
[2020-03-25] MEDS ORDERED: MEPERIDINE/PF 25MG/0.5ML IVPush PRN (15:00)
[2020-03-25] MEDS ORDERED: HYDROcodone/APAP 7.5-325MG/15ML UDC PO PRN (15:00)
[2020-03-25] MEDS ORDERED: HALOPERIDOL 5 MG/ML IV PRN (15:00)
[2020-03-25] MEDS ORDERED: EPHEDRINE 50 MG/ML, 1ML IM PRN (15:00)
[2020-03-25] MEDS ORDERED: DEXAMETHASONE 4 MG/ML, 1ML ONE (15:00)
[2020-03-25] MEDS ORDERED: PROPOFOL 10 MG/ML, 20ML ONE (15:00)
[2020-03-25] MEDS ORDERED: EPHEDRINE 50 MG/ML, 1ML IVPush PRN (15:00)
[2020-03-25] MEDS ORDERED: DIPHENHYDRAMINE 50 MG/ML, 1ML IVPush PRN (15:00)
[2020-03-25] MEDS ORDERED: LABETALOL 5MG/ML, 20ML IV PRN (15:00)
[2020-03-25] MEDS ORDERED: HYDROmorphone 1 MG/ML, 1ML INJ IVPush PRN (15:00)
[2020-03-25] MEDS ORDERED: GLYCOPYRROLATE 0.2MG/1ML, 5ML ONE (15:00)
[2020-03-25] MEDS ORDERED: OXYcodone 5 MG/5 ML ORAL.SOL UDC PO PRN (15:00)
[2020-03-25] MEDS ORDERED: hydrALAzine 20 MG/ML, 1ML IV PRN (15:00)
[2020-03-25] MEDS ORDERED: ROCURONIUM 10 MG/ML,10ML ONE (15:00)
[2020-03-25] MEDS ORDERED: MIDAZOLAM 1 MG/ML, 2ML ONE (15:00)
[2020-03-25] MEDS ORDERED: LORazepam 2 MG/ML, 1ML IVPush PRN (15:00)
[2020-03-25] MEDS ORDERED: METOCLOPRAMIDE 5 MG/ML, 2ML IVPush PRN (15:00)
[2020-03-25] MEDS ORDERED: DIAZEPAM 5 MG/ML, 2ML IVPush PRN (15:00)
[2020-03-25] MEDS ORDERED: MIDAZOLAM 1 MG/ML, 2ML IV PRN (15:00)
[2020-03-25] MEDS ORDERED: KETOROLAC 30 MG/1 ML IVPush PRN (15:00)
[2020-03-25] MEDS ORDERED: METHOCARBAMOL 1,000 MG in DEXTROSE 5% 100 ML IV PRN (15:00)
[2020-03-25] MEDS ORDERED: ALBUTEROL/IPRATROPIUM 2.5MG/0.5MG, 3 ML NPPB PRN (15:00)
[2020-03-25] MEDS ORDERED: LIDOCAINE 1%, 20ML ONE (15:00)
[2020-03-25] MEDS ORDERED: OXYcodone 5 MG/5 ML ORAL.SOL UDC ONE (16:08)
[2020-03-25] MEDS ORDERED: FENTANYL PF 100 MCG/2ML ONE (16:08)
[2020-03-25] MEDS: FENTANYL PF 100 MCG/2ML IV PRN ×2 (16:10→16:30)
[2020-03-25] MEDS: ASCORBIC ACID 500 MG TABLET PO SCH (18:40)
[2020-03-25] MEDS: CHOLECALCIFEROL 400 UNITS TABLET PO SCH (18:40)
[2020-03-25] MEDS: morphine SULFATE 10 MG/ML, 1ML IVPush PRN ×2 (18:44→22:07)
[2020-03-25 19:36] VITALS: BP 130/82
[2020-03-25] MEDS: MELATONIN 5 MG TABLET PO SCH (21:55)
[2020-03-26] MEDS: DOCUSATE 100 MG CAPSULE PO PRN ×3 (00:13→22:14)
[2020-03-26] MEDS: OXYcodone IR 5MG TABLET PO PRN ×6 (00:13→23:11)
[2020-03-26] MEDS: MELATONIN 5 MG TABLET PO SCH ×3 (00:14→23:12)
[2020-03-26 00:22] VITALS: BP 130/87
[2020-03-26 04:00] VITALS: BP 137/96
[2020-03-26 06:35] LABS: BASOPHILS % (AUTO) 0 % (0-1); CHLORIDE 107 mmol/L (98-107); EOSINOPHILS % (AUTO) 0 % (1-7); LYMPHOCYTES # (AUTO) 0.92 x10^3/uL (1-3.4); LYMPHOCYTES % (AUTO) 14 % (22-44); MD NO; MEAN CORPUSCULAR HEMOGLOBIN 24.5 pg (27.5-34.5); MEAN CORPUSCULAR HGB CONC 31.8 g/dL (33.2-36.2); MEAN CORPUSCULAR VOLUME 77.3 fL (81-97); MEAN PLATELET VOLUME 6.2 fL (7.4-10.4); MONOCYTES # (AUTO) 0.24 x10^3/uL (0.2-0.8); MONOCYTES % (AUTO) 4 % (2-9); NEUTROPHILS # (AUTO) 5.44 x10^3/uL (1.8-6.8); NEUTROPHILS % (AUTO) 82 % (42-75); PLATELET COUNT 725 x10^3/uL (130-400); RED BLOOD COUNT 3.31 x10^6/uL (4.38-5.82)
[2020-03-26 06:47] LABS: ANION GAP 10 mmol/L (5-15); CALCIUM 8.4 mg/dL (8.5-10.1); CREATININE 0.66 mg/dL (0.7-1.3)
[2020-03-26 08:14] VITALS: BP 137/89
[2020-03-26] MEDS: ZINC SULFATE 220 MG CAPSULE PO SCH (08:31)
[2020-03-26] MEDS: MULTIVITS,STRESS FORMULA 1 TABLET PO SCH (08:31)
[2020-03-26] MEDS: OMEPRAZOLE 20 MG CAPSULE.DR PO SCH (08:31)
[2020-03-26] MEDS: ASCORBIC ACID 500 MG TABLET PO SCH ×2 (08:31→16:18)
[2020-03-26] MEDS ORDERED: ERTAPENEM 1 GM IV SCH (09:00)
[2020-03-26] MEDS: APIXABAN 5 MG TABLET PO SCH ×2 (13:00→22:14)
[2020-03-26] MEDS: POLYETHYLENE GLYCOL 17 GM PACKET NG PRN (13:01)
[2020-03-26] MEDS: ERTAPENEM 1 GM in SODIUM CHLORIDE 0.9% 50 ML IV SCH (13:01)
[2020-03-26 13:57] VITALS: BP 138/82
[2020-03-26] MEDS: CHOLECALCIFEROL 400 UNITS TABLET PO SCH (16:18)
[2020-03-26 18:48] VITALS: BP 146/81
[2020-03-27] MEDS: OXYcodone IR 5MG TABLET PO PRN ×5 (05:19→21:28)
[2020-03-27 05:33] VITALS: BP 152/97
[2020-03-27 06:04] LABS: BASOPHILS # (AUTO) 0.18 x10^3/uL (0-0.1); BASOPHILS % (AUTO) 2 % (0-1); EOSINOPHILS # (AUTO) 0.24 x10^3/uL (0-0.4); EOSINOPHILS % (AUTO) 2 % (1-7); LYMPHOCYTES # (AUTO) 1.97 x10^3/uL (1-3.4); LYMPHOCYTES % (AUTO) 19 % (22-44); MD NO; MEAN CORPUSCULAR HEMOGLOBIN 24.8 pg (27.5-34.5); MEAN CORPUSCULAR HGB CONC 31.7 g/dL (33.2-36.2); MEAN CORPUSCULAR VOLUME 78.1 fL (81-97); MEAN PLATELET VOLUME 6.3 fL (7.4-10.4); MONOCYTES # (AUTO) 0.48 x10^3/uL (0.2-0.8); MONOCYTES % (AUTO) 5 % (2-9); NEUTROPHILS # (AUTO) 7.36 x10^3/uL (1.8-6.8); NEUTROPHILS % (AUTO) 72 % (42-75); PLATELET COUNT 683 x10^3/uL (130-400); RED BLOOD COUNT 3.19 x10^6/uL (4.38-5.82); RED CELL DISTRIBUTION WIDTH 17.9 % (9.4-14.8)
[2020-03-27 06:15] LABS: CHLORIDE 111 mmol/L (98-107)
[2020-03-27 06:19] LABS: ANION GAP 5 mmol/L (5-15); CALCIUM 8.4 mg/dL (8.5-10.1); CREATININE 0.72 mg/dL (0.7-1.3)
[2020-03-27 07:14] VITALS: BP 136/83
[2020-03-27] MEDS ORDERED: POTASSIUM CHLORIDE 20 MEQ TAB.ER.PRT PO ONE (08:30)
[2020-03-27] MEDS: OMEPRAZOLE 20 MG CAPSULE.DR PO SCH (09:13)
[2020-03-27] MEDS: MULTIVITS,STRESS FORMULA 1 TABLET PO SCH (09:13)
[2020-03-27] MEDS: ASCORBIC ACID 500 MG TABLET PO SCH ×2 (09:13→17:26)
[2020-03-27] MEDS: ZINC SULFATE 220 MG CAPSULE PO SCH (09:13)
[2020-03-27] MEDS: APIXABAN 5 MG TABLET PO SCH ×2 (09:13→21:28)
[2020-03-27 12:48] VITALS: BP 127/75
[2020-03-27] MEDS: ERTAPENEM 1 GM in SODIUM CHLORIDE 0.9% 50 ML IV SCH (13:22)
[2020-03-27] MEDS: CHOLECALCIFEROL 400 UNITS TABLET PO SCH (17:26)
[2020-03-27 18:27] VITALS: BP 134/76
[2020-03-27] MEDS: MELATONIN 5 MG TABLET PO SCH (21:00)
[2020-03-28 02:41] VITALS: BP 144/84
[2020-03-28] MEDS: DOCUSATE 100 MG CAPSULE PO PRN ×2 (02:45→19:39)
[2020-03-28] MEDS: OXYcodone IR 5MG TABLET PO PRN ×4 (02:46→18:35)
[2020-03-28 06:16] LABS: BASOPHILS # (AUTO) 0.04 x10^3/uL (0-0.1); BASOPHILS % (AUTO) 0 % (0-1); EOSINOPHILS # (AUTO) 0.28 x10^3/uL (0-0.4); EOSINOPHILS % (AUTO) 3 % (1-7); LYMPHOCYTES # (AUTO) 1.65 x10^3/uL (1-3.4); LYMPHOCYTES % (AUTO) 17 % (22-44); MD NO; MEAN CORPUSCULAR HEMOGLOBIN 24.8 pg (27.5-34.5); MEAN CORPUSCULAR VOLUME 77.4 fL (81-97); MEAN PLATELET VOLUME 6.2 fL (7.4-10.4); MONOCYTES # (AUTO) 0.57 x10^3/uL (0.2-0.8); MONOCYTES % (AUTO) 6 % (2-9); NEUTROPHILS # (AUTO) 7.05 x10^3/uL (1.8-6.8); NEUTROPHILS % (AUTO) 74 % (42-75); PLATELET COUNT 696 x10^3/uL (130-400); RED BLOOD COUNT 3.25 x10^6/uL (4.38-5.82); RED CELL DISTRIBUTION WIDTH 18.2 % (9.4-14.8)
[2020-03-28 06:24] LABS: ANION GAP 6 mmol/L (5-15); CALCIUM 8.5 mg/dL (8.5-10.1); CHLORIDE 109 mmol/L (98-107); CREATININE 0.68 mg/dL (0.7-1.3)
[2020-03-28 07:29] VITALS: BP 154/88
[2020-03-28] MEDS: APIXABAN 5 MG TABLET PO SCH ×2 (08:58→21:42)
[2020-03-28] MEDS: ASCORBIC ACID 500 MG TABLET PO SCH ×2 (08:58→17:00)
[2020-03-28] MEDS: MULTIVITS,STRESS FORMULA 1 TABLET PO SCH (08:58)
[2020-03-28] MEDS: ZINC SULFATE 220 MG CAPSULE PO SCH (08:58)
[2020-03-28] MEDS: OMEPRAZOLE 20 MG CAPSULE.DR PO SCH (08:58)
[2020-03-28] MEDS: ERTAPENEM 1 GM in SODIUM CHLORIDE 0.9% 50 ML IV SCH (13:17)
[2020-03-28 14:09] VITALS: BP 159/83
[2020-03-28] MEDS ORDERED: GADOTERATE 10 MMOL/20 ML SYR ONE (15:15)
[2020-03-28] MEDS: CHOLECALCIFEROL 400 UNITS TABLET PO SCH (17:00)
[2020-03-28 19:29] VITALS: BP 125/75
[2020-03-28] MEDS: morphine SULFATE 10 MG/ML, 1ML IVPush PRN (19:39)
[2020-03-28] MEDS: MELATONIN 5 MG TABLET PO SCH (21:43)
[2020-03-29] MEDS: OXYcodone IR 5MG TABLET PO PRN (00:23)
[2020-03-29] MEDS: morphine SULFATE 10 MG/ML, 1ML IVPush PRN ×4 (05:11→19:49)
[2020-03-29 05:48] LABS: BASOPHILS # (AUTO) 0.01 x10^3/uL (0-0.1); BASOPHILS % (AUTO) 0 % (0-1); EOSINOPHILS # (AUTO) 0.42 x10^3/uL (0-0.4); EOSINOPHILS % (AUTO) 4 % (1-7); LYMPHOCYTES # (AUTO) 1.44 x10^3/uL (1-3.4); LYMPHOCYTES % (AUTO) 13 % (22-44); MD NO; MEAN CORPUSCULAR HEMOGLOBIN 24.1 pg (27.5-34.5); MEAN PLATELET VOLUME 6.1 fL (7.4-10.4); MONOCYTES # (AUTO) 0.45 x10^3/uL (0.2-0.8); MONOCYTES % (AUTO) 4 % (2-9); NEUTROPHILS # (AUTO) 8.66 x10^3/uL (1.8-6.8); NEUTROPHILS % (AUTO) 79 % (42-75); PLATELET COUNT 681 x10^3/uL (130-400); RED BLOOD COUNT 3.47 x10^6/uL (4.38-5.82); RED CELL DISTRIBUTION WIDTH 18.5 % (9.4-14.8)
[2020-03-29 07:47] VITALS: BP 133/86
[2020-03-29] MEDS: APIXABAN 5 MG TABLET PO SCH ×2 (08:31→22:53)
[2020-03-29] MEDS: ZINC SULFATE 220 MG CAPSULE PO SCH (08:31)
[2020-03-29] MEDS: ASCORBIC ACID 500 MG TABLET PO SCH ×2 (08:31→17:00)
[2020-03-29] MEDS: OMEPRAZOLE 20 MG CAPSULE.DR PO SCH (08:31)
[2020-03-29] MEDS: MULTIVITS,STRESS FORMULA 1 TABLET PO SCH (08:31)
[2020-03-29] MEDS: ERTAPENEM 1 GM in SODIUM CHLORIDE 0.9% 50 ML IV SCH (13:32)
[2020-03-29] MEDS ORDERED: CHLORHEXIDINE 15 ML UDC MM ONE (13:38)
[2020-03-29] MEDS ORDERED: VANCOMYCIN 1,000 MG ONE ×2 (15:01→15:10)
[2020-03-29] MEDS ORDERED: MIDAZOLAM 1 MG/ML, 2ML ONE (15:08)
[2020-03-29] MEDS ORDERED: FENTANYL PF 250 MCG/5ML ONE (15:08)
[2020-03-29] MEDS ORDERED: TOBRAMYCIN SULFATE 1.2 GM IMP ONE (15:09)
[2020-03-29] MEDS ORDERED: CEFAZOLIN 1,000 MG ONE (15:09)
[2020-03-29] MEDS ORDERED: NEOSTIGMINE 1 MG/ML, 10ML ONE (15:14)
[2020-03-29] MEDS ORDERED: GLYCOPYRROLATE 0.2MG/1ML, 5ML ONE (15:14)
[2020-03-29] MEDS ORDERED: ROCURONIUM 10 MG/ML,10ML ONE (15:14)
[2020-03-29] MEDS ORDERED: PROPOFOL 10 MG/ML, 20ML ONE (15:14)
[2020-03-29] MEDS ORDERED: ONDANSETRON 2MG/ML, 2ML ONE (15:14)
[2020-03-29] MEDS ORDERED: ACETAMINOPHEN 325 MG TABLET PO PRN (16:00)
[2020-03-29] MEDS ORDERED: ONDANSETRON 2MG/ML, 2ML IVPush PRN (16:00)
[2020-03-29] MEDS ORDERED: ALBUTEROL SULFATE 2.5 MG/3 ML NPPB PRN (16:00)
[2020-03-29] MEDS ORDERED: LABETALOL 5MG/ML, 20ML IV PRN (16:00)
[2020-03-29] MEDS ORDERED: PROMETHAZINE 25 MG/ML, 1ML IVPush PRN (16:00)
[2020-03-29] MEDS ORDERED: OXYcodone 5 MG/5 ML ORAL.SOL UDC PO PRN (16:00)
[2020-03-29] MEDS ORDERED: MEPERIDINE/PF 25MG/0.5ML IVPush PRN (16:00)
[2020-03-29] MEDS ORDERED: DIAZEPAM 5 MG/ML, 2ML IVPush PRN (16:00)
[2020-03-29] MEDS ORDERED: FENTANYL PF 100 MCG/2ML IV PRN (16:00)
[2020-03-29] MEDS ORDERED: MINERAL OIL 10 ML VIAL MC ONE (16:02)
[2020-03-29] MEDS: CHOLECALCIFEROL 400 UNITS TABLET PO SCH (16:30)
[2020-03-29] MEDS: HYDROmorphone 1 MG/ML, 1ML INJ IVPush PRN ×2 (17:15→17:25)
[2020-03-29] MEDS ORDERED: HYDROmorphone 1 MG/ML, 1ML INJ ONE (17:17)
[2020-03-29] MEDS ORDERED: OXYcodone 5 MG/5 ML ORAL.SOL UDC ONE (17:17)
[2020-03-29] MEDS ORDERED: FENTANYL PF 100 MCG/2ML ONE (17:33)
[2020-03-29 18:30] VITALS: BP 135/75
[2020-03-29] MEDS ORDERED: SODIUM CHLORIDE 0.9%, 500ML IVBOLUS ONE (22:00)
[2020-03-29] MEDS: MELATONIN 5 MG TABLET PO SCH (22:53)
[2020-03-29] MEDS: DOCUSATE 100 MG CAPSULE PO PRN (22:53)
[2020-03-29] MEDS: HYDROcodone/APAP 5/325 TABLET PO PRN (23:03)
[2020-03-29 23:56] VITALS: BP 131/89
[2020-03-30] VITALS (10 sets, daily range): BP systolic 120–147; BP diastolic 67–92
[2020-03-30] MEDS: HYDROcodone/APAP 5/325 TABLET PO PRN ×5 (03:03→20:03)
[2020-03-30 03:31] LABS: ANION GAP 6 mmol/L (5-15); CALCIUM 8.2 mg/dL (8.5-10.1); CHLORIDE 102 mmol/L (98-107); CREATININE 0.77 mg/dL (0.7-1.3)
[2020-03-30 03:47] LABS: MEAN CORPUSCULAR HEMOGLOBIN 24.7 pg (27.5-34.5); MEAN CORPUSCULAR HGB CONC 32.1 g/dL (33.2-36.2); MEAN CORPUSCULAR VOLUME 76.9 fL (81-97); MEAN PLATELET VOLUME 6.3 fL (7.4-10.4); PLATELET COUNT 676 x10^3/uL (130-400); RED BLOOD COUNT 2.89 x10^6/uL (4.38-5.82); RED CELL DISTRIBUTION WIDTH 19.4 % (9.4-14.8)
[2020-03-30 04:03] LABS: BASOPHILS # (AUTO) 0.03 x10^3/uL (0-0.1); BASOPHILS % (AUTO) 0 % (0-1); EOSINOPHILS # (AUTO) 0.15 x10^3/uL (0-0.4); EOSINOPHILS % (AUTO) 1 % (1-7); LYMPHOCYTES # (AUTO) 1.57 x10^3/uL (1-3.4); LYMPHOCYTES % (AUTO) 13 % (22-44); MD SCAN; MONOCYTES # (AUTO) 0.56 x10^3/uL (0.2-0.8); MONOCYTES % (AUTO) 5 % (2-9); NEUTROPHILS # (AUTO) 10.19 x10^3/uL (1.8-6.8); NEUTROPHILS % (AUTO) 82 % (42-75)
[2020-03-30] MEDS: ASCORBIC ACID 500 MG TABLET PO SCH ×2 (07:37→16:45)
[2020-03-30] MEDS: OMEPRAZOLE 20 MG CAPSULE.DR PO SCH (07:38)
[2020-03-30] MEDS: MULTIVITS,STRESS FORMULA 1 TABLET PO SCH (07:38)
[2020-03-30] MEDS: ZINC SULFATE 220 MG CAPSULE PO SCH (07:38)
[2020-03-30] MEDS: APIXABAN 5 MG TABLET PO SCH ×2 (08:00→20:06)
[2020-03-30] MEDS: ERTAPENEM 1 GM in SODIUM CHLORIDE 0.9% 50 ML IV SCH (13:45)
[2020-03-30] MEDS: CHOLECALCIFEROL 400 UNITS TABLET PO SCH (16:45)
[2020-03-30] MEDS: MELATONIN 5 MG TABLET PO SCH (21:00)
[2020-03-31] MEDS: HYDROcodone/APAP 5/325 TABLET PO PRN ×6 (00:41→22:44)
[2020-03-31 00:58] VITALS: BP 131/78
[2020-03-31 06:47] LABS: BASOPHILS # (AUTO) 0.06 x10^3/uL (0-0.1); BASOPHILS % (AUTO) 0 % (0-1); EOSINOPHILS # (AUTO) 0.31 x10^3/uL (0-0.4); EOSINOPHILS % (AUTO) 2 % (1-7); LYMPHOCYTES # (AUTO) 1.31 x10^3/uL (1-3.4); LYMPHOCYTES % (AUTO) 9 % (22-44); MD NO; MEAN CORPUSCULAR HEMOGLOBIN 26.1 pg (27.5-34.5); MEAN CORPUSCULAR HGB CONC 32.7 g/dL (33.2-36.2); MEAN CORPUSCULAR VOLUME 79.8 fL (81-97); MEAN PLATELET VOLUME 6.4 fL (7.4-10.4); MONOCYTES # (AUTO) 0.97 x10^3/uL (0.2-0.8); MONOCYTES % (AUTO) 7 % (2-9); NEUTROPHILS # (AUTO) 11.92 x10^3/uL (1.8-6.8); NEUTROPHILS % (AUTO) 82 % (42-75); PLATELET COUNT 581 x10^3/uL (130-400); RED BLOOD COUNT 3.19 x10^6/uL (4.38-5.82); RED CELL DISTRIBUTION WIDTH 17.8 % (9.4-14.8)
[2020-03-31 07:44] VITALS: BP 113/68
[2020-03-31] MEDS: OMEPRAZOLE 20 MG CAPSULE.DR PO SCH (08:05)
[2020-03-31] MEDS: ASCORBIC ACID 500 MG TABLET PO SCH ×2 (08:05→16:09)
[2020-03-31] MEDS: ZINC SULFATE 220 MG CAPSULE PO SCH (08:05)
[2020-03-31] MEDS: MULTIVITS,STRESS FORMULA 1 TABLET PO SCH (08:05)
[2020-03-31] MEDS: APIXABAN 5 MG TABLET PO SCH ×2 (08:05→22:45)
[2020-03-31] MEDS: ERTAPENEM 1 GM in SODIUM CHLORIDE 0.9% 50 ML IV SCH (13:15)
[2020-03-31 14:22] VITALS: BP 92/50
[2020-03-31 14:28] VITALS: BP 128/78
[2020-03-31] MEDS: CHOLECALCIFEROL 400 UNITS TABLET PO SCH (16:09)
[2020-03-31] MEDS: POLYETHYLENE GLYCOL 17 GM PACKET NG PRN (16:15)
[2020-03-31] MEDS: DOCUSATE 100 MG CAPSULE PO PRN (16:16)
[2020-03-31 19:13] VITALS: BP 124/75
[2020-03-31] MEDS: MELATONIN 5 MG TABLET PO SCH (22:45)
[2020-04-01 00:06] VITALS: BP 132/71
[2020-04-01] MEDS: HYDROcodone/APAP 5/325 TABLET PO PRN ×5 (03:17→21:49)
[2020-04-01 04:14] LABS: BASOPHILS # (AUTO) 0.02 x10^3/uL (0-0.1); BASOPHILS % (AUTO) 0 % (0-1); EOSINOPHILS # (AUTO) 0.47 x10^3/uL (0-0.4); EOSINOPHILS % (AUTO) 4 % (1-7); LYMPHOCYTES # (AUTO) 1.51 x10^3/uL (1-3.4); LYMPHOCYTES % (AUTO) 12 % (22-44); MD NO; MEAN CORPUSCULAR HEMOGLOBIN 26.1 pg (27.5-34.5); MEAN CORPUSCULAR HGB CONC 32.7 g/dL (33.2-36.2); MEAN CORPUSCULAR VOLUME 79.6 fL (81-97); MEAN PLATELET VOLUME 6.4 fL (7.4-10.4); MONOCYTES # (AUTO) 0.58 x10^3/uL (0.2-0.8); MONOCYTES % (AUTO) 5 % (2-9); NEUTROPHILS # (AUTO) 9.56 x10^3/uL (1.8-6.8); NEUTROPHILS % (AUTO) 79 % (42-75); PLATELET COUNT 587 x10^3/uL (130-400); RED BLOOD COUNT 3.01 x10^6/uL (4.38-5.82); RED CELL DISTRIBUTION WIDTH 18.2 % (9.4-14.8)
[2020-04-01 06:59] VITALS: BP 139/80
[2020-04-01] MEDS: APIXABAN 5 MG TABLET PO SCH ×2 (09:43→20:50)
[2020-04-01] MEDS: ZINC SULFATE 220 MG CAPSULE PO SCH (09:43)
[2020-04-01] MEDS: ASCORBIC ACID 500 MG TABLET PO SCH ×2 (09:43→16:55)
[2020-04-01] MEDS: OMEPRAZOLE 20 MG CAPSULE.DR PO SCH (09:43)
[2020-04-01] MEDS: MULTIVITS,STRESS FORMULA 1 TABLET PO SCH (09:44)
[2020-04-01] MEDS: VANCOMYCIN 1,600 MG in SODIUM CHLORIDE 0.9% 250 ML IV SCH ×2 (11:26→23:38)
[2020-04-01] MEDS: ERTAPENEM 1 GM in SODIUM CHLORIDE 0.9% 50 ML IV SCH (13:49)
[2020-04-01 13:52] VITALS: BP 137/69
[2020-04-01] MEDS: CHOLECALCIFEROL 400 UNITS TABLET PO SCH (16:55)
[2020-04-01 18:37] VITALS: BP 124/76
[2020-04-01] MEDS: MELATONIN 5 MG TABLET PO SCH (21:48)
[2020-04-02 02:30] VITALS: BP 135/88
[2020-04-02] MEDS: HYDROcodone/APAP 5/325 TABLET PO PRN ×5 (04:48→23:28)
[2020-04-02 05:00] LABS: BASOPHILS # (AUTO) 0.01 x10^3/uL (0-0.1); BASOPHILS % (AUTO) 0 % (0-1); EOSINOPHILS # (AUTO) 0.62 x10^3/uL (0-0.4); EOSINOPHILS % (AUTO) 6 % (1-7); LYMPHOCYTES # (AUTO) 1.35 x10^3/uL (1-3.4); LYMPHOCYTES % (AUTO) 12 % (22-44); MD NO; MEAN CORPUSCULAR HEMOGLOBIN 25.9 pg (27.5-34.5); MEAN CORPUSCULAR HGB CONC 32.3 g/dL (33.2-36.2); MEAN CORPUSCULAR VOLUME 80.2 fL (81-97); MEAN PLATELET VOLUME 5.9 fL (7.4-10.4); MONOCYTES # (AUTO) 0.44 x10^3/uL (0.2-0.8); MONOCYTES % (AUTO) 4 % (2-9); NEUTROPHILS % (AUTO) 78 % (42-75); PLATELET COUNT 626 x10^3/uL (130-400); RED BLOOD COUNT 3.08 x10^6/uL (4.38-5.82)
[2020-04-02] MEDS: MULTIVITS,STRESS FORMULA 1 TABLET PO SCH (07:59)
[2020-04-02] MEDS: ASCORBIC ACID 500 MG TABLET PO SCH ×2 (07:59→16:25)
[2020-04-02] MEDS: APIXABAN 5 MG TABLET PO SCH ×2 (07:59→21:51)
[2020-04-02] MEDS: ZINC SULFATE 220 MG CAPSULE PO SCH (07:59)
[2020-04-02] MEDS: OMEPRAZOLE 20 MG CAPSULE.DR PO SCH (08:02)
[2020-04-02 08:25] VITALS: BP 130/80
[2020-04-02] MEDS: VANCOMYCIN 1,600 MG in SODIUM CHLORIDE 0.9% 250 ML IV SCH ×2 (11:41→23:21)
[2020-04-02 12:57] VITALS: BP 134/79
[2020-04-02] MEDS: ERTAPENEM 1 GM in SODIUM CHLORIDE 0.9% 50 ML IV SCH (13:20)
[2020-04-02] MEDS: CHOLECALCIFEROL 400 UNITS TABLET PO SCH (16:25)
[2020-04-02 19:15] VITALS: BP 128/70
[2020-04-02] MEDS: MELATONIN 5 MG TABLET PO SCH (21:00)
[2020-04-03] MEDS: HYDROcodone/APAP 5/325 TABLET PO PRN ×5 (04:29→21:56)
[2020-04-03 04:33] VITALS: BP 143/83
[2020-04-03 04:43] LABS: CREATININE 0.58 mg/dL (0.7-1.3)
[2020-04-03 04:45] LABS: BASOPHILS # (AUTO) 0.02 x10^3/uL (0-0.1); BASOPHILS % (AUTO) 0 % (0-1); EOSINOPHILS % (AUTO) 6 % (1-7); LYMPHOCYTES # (AUTO) 1.47 x10^3/uL (1-3.4); LYMPHOCYTES % (AUTO) 15 % (22-44); MD NO; MEAN CORPUSCULAR HEMOGLOBIN 25.6 pg (27.5-34.5); MEAN CORPUSCULAR HGB CONC 32.1 g/dL (33.2-36.2); MEAN CORPUSCULAR VOLUME 79.8 fL (81-97); MEAN PLATELET VOLUME 6.1 fL (7.4-10.4); MONOCYTES # (AUTO) 0.44 x10^3/uL (0.2-0.8); MONOCYTES % (AUTO) 4 % (2-9); NEUTROPHILS # (AUTO) 7.51 x10^3/uL (1.8-6.8); NEUTROPHILS % (AUTO) 75 % (42-75); PLATELET COUNT 663 x10^3/uL (130-400); RED BLOOD COUNT 3.18 x10^6/uL (4.38-5.82)
[2020-04-03 08:25] VITALS: BP 145/84
[2020-04-03] MEDS: POLYETHYLENE GLYCOL 17 GM PACKET NG PRN (08:50)
[2020-04-03] MEDS: ASCORBIC ACID 500 MG TABLET PO SCH ×2 (08:51→17:27)
[2020-04-03] MEDS: OMEPRAZOLE 20 MG CAPSULE.DR PO SCH (08:52)
[2020-04-03] MEDS: MULTIVITS,STRESS FORMULA 1 TABLET PO SCH (08:52)
[2020-04-03] MEDS: ZINC SULFATE 220 MG CAPSULE PO SCH (08:52)
[2020-04-03] MEDS: APIXABAN 5 MG TABLET PO SCH ×2 (08:53→21:56)
[2020-04-03] MEDS: VANCOMYCIN 1,600 MG in SODIUM CHLORIDE 0.9% 250 ML IV SCH (12:47)
[2020-04-03 13:29] VITALS: BP 154/91
[2020-04-03] MEDS: ERTAPENEM 1 GM in SODIUM CHLORIDE 0.9% 50 ML IV SCH (14:38)
[2020-04-03] MEDS ORDERED: MAGNESIUM HYDROXIDE 8%, 30ML UDC ONE (17:23)
[2020-04-03] MEDS: CHOLECALCIFEROL 400 UNITS TABLET PO SCH (17:27)
[2020-04-03] MEDS ORDERED: MAGNESIUM HYDROXIDE 8%, 30ML UDC PO PRN (17:30)
[2020-04-03] MEDS ORDERED: BISACODYL 10 MG SUPP PR PRN (17:30)
[2020-04-03] MEDS: POLYETHYLENE GLYCOL 17 GM PACKET NG SCH (21:00)
[2020-04-03] MEDS: MELATONIN 5 MG TABLET PO SCH (21:00)
[2020-04-03 21:53] VITALS: BP 141/86
[2020-04-03] MEDS: SENNA/DOCUSATE TABLET PO SCH (21:57)
[2020-04-04] MEDS: VANCOMYCIN 1,600 MG in SODIUM CHLORIDE 0.9% 250 ML IV SCH ×2 (00:11→12:27)
[2020-04-04 00:31] VITALS: BP 124/81
[2020-04-04] MEDS: HYDROcodone/APAP 5/325 TABLET PO PRN ×5 (05:39→23:47)
[2020-04-04 05:52] LABS: MEAN CORPUSCULAR HEMOGLOBIN 24.9 pg (27.5-34.5); MEAN CORPUSCULAR HGB CONC 31.4 g/dL (33.2-36.2); MEAN CORPUSCULAR VOLUME 79.2 fL (81-97); MEAN PLATELET VOLUME 5.8 fL (7.4-10.4); PLATELET COUNT 699 x10^3/uL (130-400); RED BLOOD COUNT 3.29 x10^6/uL (4.38-5.82); RED CELL DISTRIBUTION WIDTH 19.1 % (9.4-14.8)
[2020-04-04 06:31] LABS: BASOPHILS # (AUTO) 0.02 x10^3/uL (0-0.1); BASOPHILS % (AUTO) 0 % (0-1); EOSINOPHILS # (AUTO) 0.33 x10^3/uL (0-0.4); EOSINOPHILS % (AUTO) 3 % (1-7); LYMPHOCYTES # (AUTO) 1.24 x10^3/uL (1-3.4); LYMPHOCYTES % (AUTO) 11 % (22-44); MD SCAN; MONOCYTES # (AUTO) 0.61 x10^3/uL (0.2-0.8); MONOCYTES % (AUTO) 5 % (2-9); NEUTROPHILS # (AUTO) 9.17 x10^3/uL (1.8-6.8); NEUTROPHILS % (AUTO) 81 % (42-75)
[2020-04-04 07:32] VITALS: BP 143/83
[2020-04-04] MEDS: POLYETHYLENE GLYCOL 17 GM PACKET NG SCH ×3 (09:00→21:00)
[2020-04-04] MEDS: APIXABAN 5 MG TABLET PO SCH ×2 (10:33→21:37)
[2020-04-04] MEDS: OMEPRAZOLE 20 MG CAPSULE.DR PO SCH (10:33)
[2020-04-04] MEDS: MULTIVITS,STRESS FORMULA 1 TABLET PO SCH (10:33)
[2020-04-04] MEDS: ZINC SULFATE 220 MG CAPSULE PO SCH (10:33)
[2020-04-04] MEDS: SENNA/DOCUSATE TABLET PO SCH ×2 (10:34→21:37)
[2020-04-04] MEDS: ASCORBIC ACID 500 MG TABLET PO SCH ×2 (10:34→16:48)
[2020-04-04 12:51] VITALS: BP 129/77
[2020-04-04] MEDS: ERTAPENEM 1 GM in SODIUM CHLORIDE 0.9% 50 ML IV SCH (15:05)
[2020-04-04] MEDS: CHOLECALCIFEROL 400 UNITS TABLET PO SCH (16:48)
[2020-04-04 19:10] VITALS: BP 142/82
[2020-04-04] MEDS: MELATONIN 5 MG TABLET PO SCH (21:00)
[2020-04-05] MEDS: VANCOMYCIN 1,600 MG in SODIUM CHLORIDE 0.9% 250 ML IV SCH ×2 (00:01→12:24)
[2020-04-05 00:21] VITALS: BP 136/85
[2020-04-05] MEDS: HYDROcodone/APAP 5/325 TABLET PO PRN ×5 (05:37→21:40)
[2020-04-05 05:58] LABS: BASOPHILS % (AUTO) 0 % (0-1); EOSINOPHILS # (AUTO) 0.35 x10^3/uL (0-0.4); EOSINOPHILS % (AUTO) 3 % (1-7); LYMPHOCYTES % (AUTO) 12 % (22-44); MD NO; MEAN CORPUSCULAR HGB CONC 31.5 g/dL (33.2-36.2); MEAN CORPUSCULAR VOLUME 79.2 fL (81-97); MEAN PLATELET VOLUME 5.9 fL (7.4-10.4); MONOCYTES # (AUTO) 0.04 x10^3/uL (0.2-0.8); MONOCYTES % (AUTO) 0 % (2-9); NEUTROPHILS # (AUTO) 9.57 x10^3/uL (1.8-6.8); NEUTROPHILS % (AUTO) 84 % (42-75); PLATELET COUNT 728 x10^3/uL (130-400); RED BLOOD COUNT 3.29 x10^6/uL (4.38-5.82); RED CELL DISTRIBUTION WIDTH 19.7 % (9.4-14.8)
[2020-04-05 06:08] LABS: ALBUMIN 1.7 g/dL (3.4-5.0); ANION GAP 7 mmol/L (5-15); CALCIUM 8.2 mg/dL (8.5-10.1); CHLORIDE 109 mmol/L (98-107)
[2020-04-05 06:17] LABS: ALANINE AMINOTRANSFERASE 9 U/L (12-78); ALKALINE PHOSPHATASE 128 U/L (45-117); BILIRUBIN,TOTAL 0.3 mg/dL (0.2-1.0); CREATININE 0.66 mg/dL (0.7-1.3)
[2020-04-05 08:13] VITALS: BP 150/80
[2020-04-05] MEDS: POLYETHYLENE GLYCOL 17 GM PACKET NG SCH ×3 (09:00→21:00)
[2020-04-05] MEDS: ZINC SULFATE 220 MG CAPSULE PO SCH (09:39)
[2020-04-05] MEDS: ASCORBIC ACID 500 MG TABLET PO SCH ×2 (09:39→16:31)
[2020-04-05] MEDS: SENNA/DOCUSATE TABLET PO SCH ×2 (09:39→21:40)
[2020-04-05] MEDS: OMEPRAZOLE 20 MG CAPSULE.DR PO SCH (09:40)
[2020-04-05] MEDS: APIXABAN 5 MG TABLET PO SCH ×2 (09:40→21:40)
[2020-04-05] MEDS: MULTIVITS,STRESS FORMULA 1 TABLET PO SCH (09:40)
[2020-04-05 13:25] VITALS: BP 136/77
[2020-04-05] MEDS: CHOLECALCIFEROL 400 UNITS TABLET PO SCH (16:31)
[2020-04-05 20:41] VITALS: BP 137/85
[2020-04-05] MEDS: MELATONIN 5 MG TABLET PO SCH (21:00)
[2020-04-06] MEDS: VANCOMYCIN 1,600 MG in SODIUM CHLORIDE 0.9% 250 ML IV SCH ×2 (00:09→13:18)
[2020-04-06 02:01] VITALS: BP 129/78
[2020-04-06] MEDS: HYDROcodone/APAP 5/325 TABLET PO PRN ×5 (04:05→20:27)
[2020-04-06 05:31] LABS: ANION GAP 8 mmol/L (5-15); CHLORIDE 109 mmol/L (98-107)
[2020-04-06 05:33] LABS: CALCIUM 8.2 mg/dL (8.5-10.1); CREATININE 0.67 mg/dL (0.7-1.3)
[2020-04-06 05:37] LABS: BASOPHILS # (AUTO) 0.01 x10^3/uL (0-0.1); BASOPHILS % (AUTO) 0 % (0-1); EOSINOPHILS # (AUTO) 0.46 x10^3/uL (0-0.4); EOSINOPHILS % (AUTO) 4 % (1-7); LYMPHOCYTES # (AUTO) 1.46 x10^3/uL (1-3.4); LYMPHOCYTES % (AUTO) 13 % (22-44); MD NO; MEAN CORPUSCULAR HEMOGLOBIN 25.1 pg (27.5-34.5); MEAN CORPUSCULAR VOLUME 78.3 fL (81-97); MEAN PLATELET VOLUME 6.3 fL (7.4-10.4); MONOCYTES # (AUTO) 0.53 x10^3/uL (0.2-0.8); MONOCYTES % (AUTO) 5 % (2-9); NEUTROPHILS # (AUTO) 8.81 x10^3/uL (1.8-6.8); NEUTROPHILS % (AUTO) 78 % (42-75); PLATELET COUNT 716 x10^3/uL (130-400); RED BLOOD COUNT 3.13 x10^6/uL (4.38-5.82); RED CELL DISTRIBUTION WIDTH 19.3 % (9.4-14.8)
[2020-04-06 07:25] VITALS: BP 145/94
[2020-04-06] MEDS: ASCORBIC ACID 500 MG TABLET PO SCH ×2 (08:21→16:22)
[2020-04-06] MEDS: MULTIVITS,STRESS FORMULA 1 TABLET PO SCH (08:21)
[2020-04-06] MEDS: APIXABAN 5 MG TABLET PO SCH ×2 (08:21→20:27)
[2020-04-06] MEDS: SENNA/DOCUSATE TABLET PO SCH ×2 (08:21→20:28)
[2020-04-06] MEDS: ZINC SULFATE 220 MG CAPSULE PO SCH (08:22)
[2020-04-06] MEDS: POLYETHYLENE GLYCOL 17 GM PACKET NG SCH ×3 (08:22→20:28)
[2020-04-06] MEDS: OMEPRAZOLE 20 MG CAPSULE.DR PO SCH (08:22)
[2020-04-06 13:13] VITALS: BP 129/81
[2020-04-06] MEDS: CHOLECALCIFEROL 400 UNITS TABLET PO SCH (16:22)
[2020-04-06 19:45] VITALS: BP 149/83
[2020-04-06] MEDS: MELATONIN 5 MG TABLET PO SCH (20:28)
[2020-04-07] MEDS: HYDROcodone/APAP 5/325 TABLET PO PRN ×5 (00:28→23:14)
[2020-04-07] MEDS: VANCOMYCIN 1,600 MG in SODIUM CHLORIDE 0.9% 250 ML IV SCH ×2 (00:53→12:41)
[2020-04-07 04:24] VITALS: BP 142/85
[2020-04-07] MEDS ORDERED: CATHFLO-ALTEPLASE 2 MG/2 ML CATHFLUSH ONE (05:30)
[2020-04-07 06:55] LABS: BASOPHILS # (AUTO) 0.02 x10^3/uL (0-0.1); BASOPHILS % (AUTO) 0 % (0-1); EOSINOPHILS # (AUTO) 0.61 x10^3/uL (0-0.4); EOSINOPHILS % (AUTO) 6 % (1-7); LYMPHOCYTES # (AUTO) 1.45 x10^3/uL (1-3.4); LYMPHOCYTES % (AUTO) 15 % (22-44); MD NO; MEAN CORPUSCULAR HEMOGLOBIN 25.1 pg (27.5-34.5); MEAN CORPUSCULAR HGB CONC 32.2 g/dL (33.2-36.2); MEAN CORPUSCULAR VOLUME 77.8 fL (81-97); MEAN PLATELET VOLUME 5.9 fL (7.4-10.4); MONOCYTES # (AUTO) 0.57 x10^3/uL (0.2-0.8); MONOCYTES % (AUTO) 6 % (2-9); NEUTROPHILS # (AUTO) 6.94 x10^3/uL (1.8-6.8); NEUTROPHILS % (AUTO) 72 % (42-75); PLATELET COUNT 735 x10^3/uL (130-400); RED BLOOD COUNT 3.18 x10^6/uL (4.38-5.82); RED CELL DISTRIBUTION WIDTH 19.3 % (9.4-14.8)
[2020-04-07 07:06] LABS: ANION GAP 9 mmol/L (5-15); CHLORIDE 111 mmol/L (98-107); CREATININE 0.54 mg/dL (0.7-1.3)
[2020-04-07 08:00] VITALS: BP 145/79
[2020-04-07] MEDS: POLYETHYLENE GLYCOL 17 GM PACKET NG SCH ×3 (09:00→21:00)
[2020-04-07] MEDS: ZINC SULFATE 220 MG CAPSULE PO SCH (10:05)
[2020-04-07] MEDS: APIXABAN 5 MG TABLET PO SCH ×2 (10:05→23:13)
[2020-04-07] MEDS: MULTIVITS,STRESS FORMULA 1 TABLET PO SCH (10:05)
[2020-04-07] MEDS: OMEPRAZOLE 20 MG CAPSULE.DR PO SCH (10:06)
[2020-04-07] MEDS: ASCORBIC ACID 500 MG TABLET PO SCH ×2 (10:06→16:03)
[2020-04-07] MEDS: SENNA/DOCUSATE TABLET PO SCH ×2 (10:06→23:13)
[2020-04-07 12:24] VITALS: BP 147/83
[2020-04-07] MEDS: CHOLECALCIFEROL 400 UNITS TABLET PO SCH (16:03)
[2020-04-07 19:47] VITALS: BP 157/69
[2020-04-07] MEDS: MELATONIN 5 MG TABLET PO SCH (21:00)
[2020-04-08] MEDS: VANCOMYCIN 1,600 MG in SODIUM CHLORIDE 0.9% 250 ML IV SCH ×2 (00:32→13:40)
[2020-04-08 03:04] VITALS: BP 145/80
[2020-04-08] MEDS: HYDROcodone/APAP 5/325 TABLET PO PRN ×5 (05:57→23:40)
[2020-04-08 06:36] LABS: BASOPHILS # (AUTO) 0.17 x10^3/uL (0-0.1); BASOPHILS % (AUTO) 2 % (0-1); EOSINOPHILS % (AUTO) 5 % (1-7); LYMPHOCYTES % (AUTO) 14 % (22-44); MD NO; MEAN CORPUSCULAR VOLUME 78.2 fL (81-97); MEAN PLATELET VOLUME 6.1 fL (7.4-10.4); MONOCYTES # (AUTO) 0.52 x10^3/uL (0.2-0.8); MONOCYTES % (AUTO) 5 % (2-9); NEUTROPHILS # (AUTO) 7.43 x10^3/uL (1.8-6.8); NEUTROPHILS % (AUTO) 74 % (42-75); PLATELET COUNT 757 x10^3/uL (130-400); RED BLOOD COUNT 3.21 x10^6/uL (4.38-5.82); RED CELL DISTRIBUTION WIDTH 19.4 % (9.4-14.8)
[2020-04-08 06:47] LABS: ANION GAP 8 mmol/L (5-15); CALCIUM 8.6 mg/dL (8.5-10.1); CHLORIDE 113 mmol/L (98-107); CREATININE 0.54 mg/dL (0.7-1.3)
[2020-04-08 07:20] VITALS: BP 144/83
[2020-04-08] MEDS: POLYETHYLENE GLYCOL 17 GM PACKET NG SCH ×3 (08:55→21:00)
[2020-04-08] MEDS: OMEPRAZOLE 20 MG CAPSULE.DR PO SCH (09:02)
[2020-04-08] MEDS: ZINC SULFATE 220 MG CAPSULE PO SCH (09:02)
[2020-04-08] MEDS: APIXABAN 5 MG TABLET PO SCH ×2 (09:02→22:53)
[2020-04-08] MEDS: SENNA/DOCUSATE TABLET PO SCH ×2 (09:02→22:53)
[2020-04-08] MEDS: ASCORBIC ACID 500 MG TABLET PO SCH ×2 (09:02→17:12)
[2020-04-08] MEDS: MULTIVITS,STRESS FORMULA 1 TABLET PO SCH (09:02)
[2020-04-08 13:30] VITALS: BP 156/89
[2020-04-08] MEDS: CHOLECALCIFEROL 400 UNITS TABLET PO SCH (17:12)
[2020-04-08 18:45] VITALS: BP 144/81
[2020-04-08] MEDS: MELATONIN 5 MG TABLET PO SCH (21:00)
[2020-04-09] MEDS: VANCOMYCIN 1,600 MG in SODIUM CHLORIDE 0.9% 250 ML IV SCH ×2 (01:03→12:17)
[2020-04-09 04:21] VITALS: BP 150/84
[2020-04-09] MEDS: HYDROcodone/APAP 5/325 TABLET PO PRN ×5 (04:24→20:31)
[2020-04-09 05:27] LABS: BASOPHILS # (AUTO) 0.05 x10^3/uL (0-0.1); BASOPHILS % (AUTO) 1 % (0-1); EOSINOPHILS # (AUTO) 0.51 x10^3/uL (0-0.4); EOSINOPHILS % (AUTO) 6 % (1-7); LYMPHOCYTES # (AUTO) 1.65 x10^3/uL (1-3.4); LYMPHOCYTES % (AUTO) 18 % (22-44); MD NO; MEAN CORPUSCULAR HEMOGLOBIN 24.7 pg (27.5-34.5); MEAN CORPUSCULAR HGB CONC 31.8 g/dL (33.2-36.2); MEAN CORPUSCULAR VOLUME 77.6 fL (81-97); MEAN PLATELET VOLUME 5.9 fL (7.4-10.4); MONOCYTES # (AUTO) 0.65 x10^3/uL (0.2-0.8); MONOCYTES % (AUTO) 7 % (2-9); NEUTROPHILS # (AUTO) 6.27 x10^3/uL (1.8-6.8); NEUTROPHILS % (AUTO) 69 % (42-75); PLATELET COUNT 752 x10^3/uL (130-400); RED BLOOD COUNT 3.17 x10^6/uL (4.38-5.82); RED CELL DISTRIBUTION WIDTH 19.8 % (9.4-14.8)
[2020-04-09 05:35] LABS: ANION GAP 7 mmol/L (5-15); CALCIUM 8.4 mg/dL (8.5-10.1); CHLORIDE 113 mmol/L (98-107); CREATININE 0.63 mg/dL (0.7-1.3)
[2020-04-09 07:37] VITALS: BP 144/81
[2020-04-09] MEDS: POLYETHYLENE GLYCOL 17 GM PACKET NG SCH ×3 (08:26→20:57)
[2020-04-09] MEDS: APIXABAN 5 MG TABLET PO SCH ×2 (08:32→20:57)
[2020-04-09] MEDS: OMEPRAZOLE 20 MG CAPSULE.DR PO SCH (08:32)
[2020-04-09] MEDS: SENNA/DOCUSATE TABLET PO SCH ×2 (08:32→20:57)
[2020-04-09] MEDS: ASCORBIC ACID 500 MG TABLET PO SCH ×2 (08:32→16:28)
[2020-04-09] MEDS: MULTIVITS,STRESS FORMULA 1 TABLET PO SCH (08:32)
[2020-04-09] MEDS: ZINC SULFATE 220 MG CAPSULE PO SCH (08:33)
[2020-04-09 13:42] VITALS: BP 123/79
[2020-04-09] MEDS: CHOLECALCIFEROL 400 UNITS TABLET PO SCH (16:27)
[2020-04-09] MEDS ORDERED: POTASSIUM CHLORIDE 20 MEQ TAB.ER.PRT PO ONE (17:00)
[2020-04-09 20:51] VITALS: BP 168/77
[2020-04-09] MEDS: MELATONIN 5 MG TABLET PO SCH (20:57)
[2020-04-10] MEDS: VANCOMYCIN 1,600 MG in SODIUM CHLORIDE 0.9% 250 ML IV SCH (00:24)
[2020-04-10] MEDS: HYDROcodone/APAP 5/325 TABLET PO PRN ×6 (00:30→21:16)
[2020-04-10 03:10] VITALS: BP 150/90
[2020-04-10] MEDS ORDERED: CATHFLO-ALTEPLASE 2 MG/2 ML CATHFLUSH ONE (04:30)
[2020-04-10 08:00] VITALS: BP 147/84
[2020-04-10] MEDS: POLYETHYLENE GLYCOL 17 GM PACKET NG SCH ×3 (08:18→21:00)
[2020-04-10] MEDS: MULTIVITS,STRESS FORMULA 1 TABLET PO SCH (08:18)
[2020-04-10] MEDS: APIXABAN 5 MG TABLET PO SCH ×2 (08:18→21:16)
[2020-04-10] MEDS: OMEPRAZOLE 20 MG CAPSULE.DR PO SCH (08:18)
[2020-04-10] MEDS: ASCORBIC ACID 500 MG TABLET PO SCH ×2 (08:18→17:07)
[2020-04-10] MEDS: ZINC SULFATE 220 MG CAPSULE PO SCH (08:18)
[2020-04-10] MEDS: SENNA/DOCUSATE TABLET PO SCH ×2 (08:18→21:16)
[2020-04-10] MEDS ORDERED: POTASSIUM CHLORIDE 20 MEQ TAB.ER.PRT PO SCH ×2 (09:30→17:00)
[2020-04-10] MEDS ORDERED: POTASSIUM CHLORIDE 20 MEQ TAB.ER.PRT PO ONE ×2 (09:30→14:00)
[2020-04-10] MEDS: DAPTOMYCIN 550 MG in SODIUM CHLORIDE 0.9% 100 ML IVPB SCH (10:52)
[2020-04-10 14:26] VITALS: BP 160/86
[2020-04-10] MEDS: CHOLECALCIFEROL 400 UNITS TABLET PO SCH (17:07)
[2020-04-10] MEDS: MELATONIN 5 MG TABLET PO SCH (21:16)
[2020-04-10 21:59] VITALS: BP 133/75
[2020-04-11 02:23] VITALS: BP 143/86
[2020-04-11] MEDS: HYDROcodone/APAP 5/325 TABLET PO PRN ×4 (02:28→20:56)
[2020-04-11 05:30] LABS: BASOPHILS # (AUTO) 0.04 x10^3/uL (0-0.1); BASOPHILS % (AUTO) 1 % (0-1); EOSINOPHILS # (AUTO) 0.48 x10^3/uL (0-0.4); EOSINOPHILS % (AUTO) 5 % (1-7); LYMPHOCYTES # (AUTO) 1.64 x10^3/uL (1-3.4); LYMPHOCYTES % (AUTO) 18 % (22-44); MD NO; MEAN CORPUSCULAR HEMOGLOBIN 24.5 pg (27.5-34.5); MEAN CORPUSCULAR HGB CONC 31.6 g/dL (33.2-36.2); MEAN CORPUSCULAR VOLUME 77.7 fL (81-97); MEAN PLATELET VOLUME 6.1 fL (7.4-10.4); MONOCYTES # (AUTO) 0.51 x10^3/uL (0.2-0.8); MONOCYTES % (AUTO) 6 % (2-9); NEUTROPHILS # (AUTO) 6.27 x10^3/uL (1.8-6.8); NEUTROPHILS % (AUTO) 70 % (42-75); PLATELET COUNT 734 x10^3/uL (130-400); RED BLOOD COUNT 3.22 x10^6/uL (4.38-5.82); RED CELL DISTRIBUTION WIDTH 19.9 % (9.4-14.8)
[2020-04-11 07:06] VITALS: BP_SYST 161; BP_SYST 165; BP_DIAS 81; BP_DIAS 96
[2020-04-11] MEDS: SENNA/DOCUSATE TABLET PO SCH ×2 (08:12→20:56)
[2020-04-11] MEDS: OMEPRAZOLE 20 MG CAPSULE.DR PO SCH (08:12)
[2020-04-11] MEDS: ZINC SULFATE 220 MG CAPSULE PO SCH (08:12)
[2020-04-11] MEDS: APIXABAN 5 MG TABLET PO SCH ×2 (08:12→20:55)
[2020-04-11] MEDS: MULTIVITS,STRESS FORMULA 1 TABLET PO SCH (08:12)
[2020-04-11] MEDS: ASCORBIC ACID 500 MG TABLET PO SCH ×2 (08:13→15:35)
[2020-04-11] MEDS: POLYETHYLENE GLYCOL 17 GM PACKET NG SCH ×3 (08:17→20:49)
[2020-04-11] MEDS: DAPTOMYCIN 550 MG in SODIUM CHLORIDE 0.9% 100 ML IVPB SCH (09:37)
[2020-04-11] MEDS: CHOLECALCIFEROL 400 UNITS TABLET PO SCH (15:35)
[2020-04-11 15:54] VITALS: BP 158/92
[2020-04-11 16:50] VITALS: BP 156/89
[2020-04-11 20:23] VITALS: BP 154/89
[2020-04-11] MEDS: MELATONIN 5 MG TABLET PO SCH (20:49)
[2020-04-12 00:22] VITALS: BP 135/78
[2020-04-12] MEDS: HYDROcodone/APAP 5/325 TABLET PO PRN ×5 (02:25→22:25)
[2020-04-12 06:03] LABS: BASOPHILS # (AUTO) 0.04 x10^3/uL (0-0.1); BASOPHILS % (AUTO) 0 % (0-1); EOSINOPHILS # (AUTO) 0.43 x10^3/uL (0-0.4); EOSINOPHILS % (AUTO) 5 % (1-7); LYMPHOCYTES # (AUTO) 1.83 x10^3/uL (1-3.4); LYMPHOCYTES % (AUTO) 20 % (22-44); MD NO; MEAN CORPUSCULAR HEMOGLOBIN 24.5 pg (27.5-34.5); MEAN CORPUSCULAR HGB CONC 31.4 g/dL (33.2-36.2); MEAN PLATELET VOLUME 5.9 fL (7.4-10.4); MONOCYTES # (AUTO) 0.47 x10^3/uL (0.2-0.8); MONOCYTES % (AUTO) 5 % (2-9); NEUTROPHILS # (AUTO) 6.56 x10^3/uL (1.8-6.8); NEUTROPHILS % (AUTO) 70 % (42-75); PLATELET COUNT 705 x10^3/uL (130-400); RED BLOOD COUNT 3.23 x10^6/uL (4.38-5.82); RED CELL DISTRIBUTION WIDTH 19.5 % (9.4-14.8)
[2020-04-12 06:33] LABS: HCT (SEDRATE) 25.5 % (39.2-51.8)
[2020-04-12 06:46] LABS: ALANINE AMINOTRANSFERASE 8 U/L (12-78); ALBUMIN 1.9 g/dL (3.4-5.0); ANION GAP 8 mmol/L (5-15); CALCIUM 7.9 mg/dL (8.5-10.1); CHLORIDE 113 mmol/L (98-107)
[2020-04-12 06:53] LABS: ALKALINE PHOSPHATASE 144 U/L (45-117); BILIRUBIN,TOTAL 0.2 mg/dL (0.2-1.0); CREATINE KINASE, TOTAL 24 U/L (39-308); CREATININE 0.59 mg/dL (0.7-1.3); TOTAL PROTEIN 5.8 g/dL (6.4-8.2)
[2020-04-12 07:00] VITALS: BP 152/78
[2020-04-12] MEDS: SENNA/DOCUSATE TABLET PO SCH ×2 (09:19→20:46)
[2020-04-12] MEDS: MULTIVITS,STRESS FORMULA 1 TABLET PO SCH (09:20)
[2020-04-12] MEDS: OMEPRAZOLE 20 MG CAPSULE.DR PO SCH (09:20)
[2020-04-12] MEDS: ZINC SULFATE 220 MG CAPSULE PO SCH (09:20)
[2020-04-12] MEDS: APIXABAN 5 MG TABLET PO SCH ×2 (09:20→20:47)
[2020-04-12] MEDS: ASCORBIC ACID 500 MG TABLET PO SCH ×2 (09:20→16:04)
[2020-04-12] MEDS: POLYETHYLENE GLYCOL 17 GM PACKET NG SCH ×3 (09:21→20:40)
[2020-04-12] MEDS ORDERED: POTASSIUM CHLORIDE 20 MEQ TAB.ER.PRT PO ONE (09:30)
[2020-04-12] MEDS: DAPTOMYCIN 550 MG in SODIUM CHLORIDE 0.9% 100 ML IVPB SCH (10:23)
[2020-04-12 13:12] VITALS: BP 158/90
[2020-04-12] MEDS: CHOLECALCIFEROL 400 UNITS TABLET PO SCH (16:04)
[2020-04-12] MEDS: MELATONIN 5 MG TABLET PO SCH (20:40)
[2020-04-12 20:44] VITALS: BP 152/86
[2020-04-13 02:35] VITALS: BP 158/93
[2020-04-13] MEDS: HYDROcodone/APAP 5/325 TABLET PO PRN ×5 (02:46→21:15)
[2020-04-13 07:50] VITALS: BP 144/84
[2020-04-13] MEDS: SENNA/DOCUSATE TABLET PO SCH ×2 (08:16→21:16)
[2020-04-13] MEDS: ASCORBIC ACID 500 MG TABLET PO SCH ×2 (08:17→17:06)
[2020-04-13] MEDS: POLYETHYLENE GLYCOL 17 GM PACKET NG SCH ×4 (08:17→21:00)
[2020-04-13] MEDS: APIXABAN 5 MG TABLET PO SCH ×2 (08:17→21:15)
[2020-04-13] MEDS: OMEPRAZOLE 20 MG CAPSULE.DR PO SCH (08:17)
[2020-04-13] MEDS: ZINC SULFATE 220 MG CAPSULE PO SCH (08:18)
[2020-04-13] MEDS: DAPTOMYCIN 550 MG in SODIUM CHLORIDE 0.9% 100 ML IVPB SCH (10:05)
[2020-04-13] MEDS: MULTIVITS,STRESS FORMULA 1 TABLET PO SCH (11:18)
[2020-04-13 15:38] VITALS: BP 150/95
[2020-04-13] MEDS: CHOLECALCIFEROL 400 UNITS TABLET PO SCH (17:06)
[2020-04-13 19:52] VITALS: BP 149/94
[2020-04-13] MEDS: MELATONIN 5 MG TABLET PO SCH (21:15)
[2020-04-14] VITALS (10 sets, daily range): BP systolic 125–145; BP diastolic 81–94
[2020-04-14] MEDS ORDERED: CATHFLO-ALTEPLASE 2 MG/2 ML CATHFLUSH ONE (05:30)
[2020-04-14] MEDS: HYDROcodone/APAP 5/325 TABLET PO PRN ×4 (05:32→21:26)
[2020-04-14 06:29] LABS: BASOPHILS # (AUTO) 0.09 x10^3/uL (0-0.1); BASOPHILS % (AUTO) 1 % (0-1); EOSINOPHILS # (AUTO) 0.44 x10^3/uL (0-0.4); EOSINOPHILS % (AUTO) 4 % (1-7); LYMPHOCYTES # (AUTO) 1.52 x10^3/uL (1-3.4); LYMPHOCYTES % (AUTO) 15 % (22-44); MD NO; MEAN CORPUSCULAR HEMOGLOBIN 24.7 pg (27.5-34.5); MEAN CORPUSCULAR HGB CONC 31.8 g/dL (33.2-36.2); MEAN CORPUSCULAR VOLUME 77.4 fL (81-97); MEAN PLATELET VOLUME 6.2 fL (7.4-10.4); MONOCYTES # (AUTO) 0.48 x10^3/uL (0.2-0.8); MONOCYTES % (AUTO) 5 % (2-9); NEUTROPHILS # (AUTO) 7.52 x10^3/uL (1.8-6.8); NEUTROPHILS % (AUTO) 75 % (42-75); PLATELET COUNT 666 x10^3/uL (130-400); RED BLOOD COUNT 3.21 x10^6/uL (4.38-5.82); RED CELL DISTRIBUTION WIDTH 19.5 % (9.4-14.8)
[2020-04-14 06:38] LABS: ANION GAP 5 mmol/L (5-15); CALCIUM 7.7 mg/dL (8.5-10.1); CHLORIDE 114 mmol/L (98-107); CREATININE 0.56 mg/dL (0.7-1.3)
[2020-04-14] MEDS: ZINC SULFATE 220 MG CAPSULE PO SCH (08:37)
[2020-04-14] MEDS: MULTIVITS,STRESS FORMULA 1 TABLET PO SCH (08:37)
[2020-04-14] MEDS: ASCORBIC ACID 500 MG TABLET PO SCH ×2 (08:37→16:22)
[2020-04-14] MEDS: SENNA/DOCUSATE TABLET PO SCH ×2 (08:37→21:00)
[2020-04-14] MEDS: APIXABAN 5 MG TABLET PO SCH ×2 (08:38→21:21)
[2020-04-14] MEDS: OMEPRAZOLE 20 MG CAPSULE.DR PO SCH (08:38)
[2020-04-14] MEDS: POLYETHYLENE GLYCOL 17 GM PACKET NG SCH ×3 (09:00→21:00)
[2020-04-14] MEDS: DAPTOMYCIN 550 MG in SODIUM CHLORIDE 0.9% 100 ML IVPB SCH (09:29)
[2020-04-14] MEDS ORDERED: POTASSIUM CHLORIDE 20 MEQ TAB.ER.PRT PO ONE ×2 (09:30→14:00)
[2020-04-14] MEDS: CHOLECALCIFEROL 400 UNITS TABLET PO SCH (16:22)
[2020-04-14] MEDS: MELATONIN 5 MG TABLET PO SCH (21:00)
[2020-04-15 03:50] VITALS: BP 157/91
[2020-04-15] MEDS: HYDROcodone/APAP 5/325 TABLET PO PRN ×5 (04:13→21:30)
[2020-04-15 04:50] LABS: BASOPHILS # (AUTO) 0.02 x10^3/uL (0-0.1); BASOPHILS % (AUTO) 0 % (0-1); EOSINOPHILS # (AUTO) 0.49 x10^3/uL (0-0.4); EOSINOPHILS % (AUTO) 5 % (1-7); LYMPHOCYTES # (AUTO) 2.09 x10^3/uL (1-3.4); LYMPHOCYTES % (AUTO) 22 % (22-44); MD NO; MEAN CORPUSCULAR HGB CONC 31.9 g/dL (33.2-36.2); MEAN CORPUSCULAR VOLUME 78.2 fL (81-97); MEAN PLATELET VOLUME 6.3 fL (7.4-10.4); MONOCYTES # (AUTO) 0.47 x10^3/uL (0.2-0.8); MONOCYTES % (AUTO) 5 % (2-9); NEUTROPHILS # (AUTO) 6.55 x10^3/uL (1.8-6.8); NEUTROPHILS % (AUTO) 68 % (42-75); PLATELET COUNT 629 x10^3/uL (130-400); RED BLOOD COUNT 3.61 x10^6/uL (4.38-5.82); RED CELL DISTRIBUTION WIDTH 19.4 % (9.4-14.8)
[2020-04-15] MEDS: MULTIVITS,STRESS FORMULA 1 TABLET PO SCH (08:21)
[2020-04-15] MEDS: OMEPRAZOLE 20 MG CAPSULE.DR PO SCH (08:21)
[2020-04-15] MEDS: ASCORBIC ACID 500 MG TABLET PO SCH ×2 (08:21→17:14)
[2020-04-15] MEDS: SENNA/DOCUSATE TABLET PO SCH ×3 (08:22→21:30)
[2020-04-15] MEDS: APIXABAN 5 MG TABLET PO SCH ×2 (08:22→21:00)
[2020-04-15] MEDS: ZINC SULFATE 220 MG CAPSULE PO SCH (08:22)
[2020-04-15 08:32] VITALS: BP 137/85
[2020-04-15] MEDS: POLYETHYLENE GLYCOL 17 GM PACKET NG SCH ×3 (08:34→21:00)
[2020-04-15] MEDS: DAPTOMYCIN 550 MG in SODIUM CHLORIDE 0.9% 100 ML IVPB SCH (10:10)
[2020-04-15 15:14] VITALS: BP 153/77
[2020-04-15] MEDS: POTASSIUM CHLORIDE 20 MEQ TAB.ER.PRT PO SCH (17:14)
[2020-04-15] MEDS: CHOLECALCIFEROL 400 UNITS TABLET PO SCH (17:19)
[2020-04-15 20:27] VITALS: BP 148/89
[2020-04-15] MEDS: MELATONIN 5 MG TABLET PO SCH (21:00)
[2020-04-16 02:25] VITALS: BP 155/92
[2020-04-16] MEDS: HYDROcodone/APAP 5/325 TABLET PO PRN ×5 (02:30→20:55)
[2020-04-16 07:40] LABS: BASOPHILS # (AUTO) 0.05 x10^3/uL (0-0.1); BASOPHILS % (AUTO) 1 % (0-1); EOSINOPHILS # (AUTO) 0.52 x10^3/uL (0-0.4); EOSINOPHILS % (AUTO) 6 % (1-7); LYMPHOCYTES # (AUTO) 1.76 x10^3/uL (1-3.4); LYMPHOCYTES % (AUTO) 20 % (22-44); MD NO; MEAN CORPUSCULAR HEMOGLOBIN 24.6 pg (27.5-34.5); MEAN CORPUSCULAR VOLUME 79.5 fL (81-97); MEAN PLATELET VOLUME 6.1 fL (7.4-10.4); MONOCYTES # (AUTO) 0.52 x10^3/uL (0.2-0.8); MONOCYTES % (AUTO) 6 % (2-9); NEUTROPHILS # (AUTO) 5.89 x10^3/uL (1.8-6.8); NEUTROPHILS % (AUTO) 67 % (42-75); PLATELET COUNT 656 x10^3/uL (130-400); RED CELL DISTRIBUTION WIDTH 19.9 % (9.4-14.8)
[2020-04-16 07:47] LABS: ALBUMIN 2.2 g/dL (3.4-5.0); ANION GAP 5 mmol/L (5-15); CALCIUM 8.9 mg/dL (8.5-10.1); CHLORIDE 112 mmol/L (98-107)
[2020-04-16 07:50] LABS: ALANINE AMINOTRANSFERASE 8 U/L (12-78); ALKALINE PHOSPHATASE 145 U/L (45-117); BILIRUBIN,TOTAL 0.2 mg/dL (0.2-1.0); CREATININE 0.68 mg/dL (0.7-1.3); TOTAL PROTEIN 6.1 g/dL (6.4-8.2)
[2020-04-16 07:56] VITALS: BP 152/93
[2020-04-16] MEDS: ASCORBIC ACID 500 MG TABLET PO SCH ×2 (08:00→16:30)
[2020-04-16] MEDS: POTASSIUM CHLORIDE 20 MEQ TAB.ER.PRT PO SCH ×2 (08:00→16:30)
[2020-04-16] MEDS: POLYETHYLENE GLYCOL 17 GM PACKET NG SCH ×3 (09:00→20:55)
[2020-04-16] MEDS: SENNA/DOCUSATE TABLET PO SCH ×2 (09:00→20:56)
[2020-04-16] MEDS: MULTIVITS,STRESS FORMULA 1 TABLET PO SCH (09:00)
[2020-04-16] MEDS: APIXABAN 5 MG TABLET PO SCH ×2 (09:00→20:55)
[2020-04-16] MEDS: ZINC SULFATE 220 MG CAPSULE PO SCH (09:00)
[2020-04-16] MEDS: OMEPRAZOLE 20 MG CAPSULE.DR PO SCH (09:00)
[2020-04-16] MEDS: DAPTOMYCIN 550 MG in SODIUM CHLORIDE 0.9% 100 ML IVPB SCH (09:43)
[2020-04-16] MEDS ORDERED: CHLORHEXIDINE 15 ML UDC MM STA (12:40)
[2020-04-16] MEDS ORDERED: MIDAZOLAM 1 MG/ML, 2ML ONE (13:13)
[2020-04-16] MEDS ORDERED: ONDANSETRON 2MG/ML, 2ML ONE (13:15)
[2020-04-16] MEDS ORDERED: SUGAMMADEX 200 MG/2 ML IVPush ONE (13:15)
[2020-04-16] MEDS ORDERED: ROCURONIUM 10 MG/ML,10ML ONE (13:15)
[2020-04-16] MEDS ORDERED: SUCCINYLCHOLINE 20 MG/ML, 10ML ONE (13:15)
[2020-04-16] MEDS ORDERED: CEFAZOLIN 1,000 MG ONE (13:15)
[2020-04-16] MEDS ORDERED: PROPOFOL 10 MG/ML, 20ML ONE (13:15)
[2020-04-16] MEDS ORDERED: DEXAMETHASONE 4 MG/ML, 1ML ONE (13:15)
[2020-04-16] MEDS ORDERED: PROMETHAZINE 25 MG/ML, 1ML IV PRN (14:00)
[2020-04-16] MEDS ORDERED: ALBUTEROL SULFATE 2.5 MG/3 ML NPPB PRN (14:00)
[2020-04-16] MEDS ORDERED: hydrALAzine 20 MG/ML, 1ML IV PRN (14:00)
[2020-04-16] MEDS ORDERED: ONDANSETRON 2MG/ML, 2ML IVPush PRN (14:00)
[2020-04-16] MEDS ORDERED: OXYcodone 5 MG/5 ML ORAL.SOL UDC PO PRN (14:00)
[2020-04-16] MEDS ORDERED: KETOROLAC 30 MG/1 ML IV PRN (14:00)
[2020-04-16] MEDS ORDERED: HYDROmorphone 1 MG/ML, 1ML INJ IV PRN (14:00)
[2020-04-16] MEDS ORDERED: MEPERIDINE/PF 25MG/0.5ML IVPush PRN (14:00)
[2020-04-16] MEDS ORDERED: LABETALOL 5MG/ML, 20ML IV PRN (14:00)
[2020-04-16] MEDS ORDERED: METOCLOPRAMIDE 5 MG/ML, 2ML IV PRN (14:00)
[2020-04-16] MEDS ORDERED: DIAZEPAM 5 MG/ML, 2ML IV PRN ×2 (14:00)
[2020-04-16] MEDS ORDERED: FENTANYL PF 100 MCG/2ML ONE ×2 (14:36→14:40)
[2020-04-16] MEDS: FENTANYL PF 100 MCG/2ML IV PRN ×4 (14:42→15:14)
[2020-04-16] MEDS: CHOLECALCIFEROL 400 UNITS TABLET PO SCH (16:30)
[2020-04-16] MEDS: MORPHINE SULFATE 4 MG/ML, 1ML IVPush PRN ×2 (17:20→20:55)
[2020-04-16 19:49] VITALS: BP 148/104
[2020-04-16] MEDS: MELATONIN 5 MG TABLET PO SCH (20:56)
[2020-04-16] MEDS: ONDANSETRON 2MG/ML, 2ML IVPush PRN (20:59)
[2020-04-17 00:41] VITALS: BP 139/85
[2020-04-17] MEDS: MORPHINE SULFATE 4 MG/ML, 1ML IVPush PRN ×2 (00:44→08:13)
[2020-04-17] MEDS: HYDROcodone/APAP 5/325 TABLET PO PRN ×5 (00:44→21:37)
[2020-04-17 04:52] VITALS: BP 137/76
[2020-04-17 08:00] VITALS: BP 126/79
[2020-04-17] MEDS: ASCORBIC ACID 500 MG TABLET PO SCH ×2 (08:11→16:47)
[2020-04-17] MEDS: ZINC SULFATE 220 MG CAPSULE PO SCH (08:12)
[2020-04-17] MEDS: MULTIVITS,STRESS FORMULA 1 TABLET PO SCH (08:12)
[2020-04-17] MEDS: POTASSIUM CHLORIDE 20 MEQ TAB.ER.PRT PO SCH ×2 (08:12→16:47)
[2020-04-17] MEDS: OMEPRAZOLE 20 MG CAPSULE.DR PO SCH (08:12)
[2020-04-17] MEDS: SENNA/DOCUSATE TABLET PO SCH ×2 (08:12→21:00)
[2020-04-17] MEDS: APIXABAN 5 MG TABLET PO SCH ×2 (08:12→20:05)
[2020-04-17] MEDS: POLYETHYLENE GLYCOL 17 GM PACKET NG SCH ×3 (08:26→21:00)
[2020-04-17] MEDS: DAPTOMYCIN 550 MG in SODIUM CHLORIDE 0.9% 100 ML IVPB SCH (09:16)
[2020-04-17] MEDS: ONDANSETRON 2MG/ML, 2ML IVPush PRN ×2 (10:13→20:10)
[2020-04-17 12:31] VITALS: BP 137/81
[2020-04-17] MEDS ORDERED: morphine SULFATE/PF 0.5 MG/ML, 10ML IV PRN (15:00)
[2020-04-17] MEDS: CHOLECALCIFEROL 400 UNITS TABLET PO SCH (16:46)
[2020-04-17] MEDS ORDERED: MORPHINE SULFATE 4 MG/ML, 1ML IV PRN (18:54)
[2020-04-17] MEDS ORDERED: morphine SULFATE 10 MG/ML, 1ML IV PRN (19:58)
[2020-04-17] MEDS: morphine SULFATE 10 MG/ML, 1ML IV PRN (20:05)
[2020-04-17 20:22] VITALS: BP 162/84
[2020-04-17] MEDS: MELATONIN 5 MG TABLET PO SCH (21:00)
[2020-04-18 01:41] VITALS: BP 164/98
[2020-04-18] MEDS: ONDANSETRON 2MG/ML, 2ML IVPush PRN (01:43)
[2020-04-18] MEDS: morphine SULFATE 10 MG/ML, 1ML IV PRN (01:44)
[2020-04-18] MEDS: HYDROcodone/APAP 5/325 TABLET PO PRN ×5 (01:44→20:40)
[2020-04-18 07:24] VITALS: BP 152/98
[2020-04-18] MEDS: POLYETHYLENE GLYCOL 17 GM PACKET NG SCH ×3 (09:00→21:00)
[2020-04-18] MEDS: SENNA/DOCUSATE TABLET PO SCH ×2 (09:14→20:24)
[2020-04-18] MEDS: OMEPRAZOLE 20 MG CAPSULE.DR PO SCH (09:14)
[2020-04-18] MEDS: MULTIVITS,STRESS FORMULA 1 TABLET PO SCH (09:14)
[2020-04-18] MEDS: APIXABAN 5 MG TABLET PO SCH ×2 (09:15→20:24)
[2020-04-18] MEDS: ASCORBIC ACID 500 MG TABLET PO SCH ×3 (09:15→17:00)
[2020-04-18] MEDS: ZINC SULFATE 220 MG CAPSULE PO SCH (09:15)
[2020-04-18] MEDS: POTASSIUM CHLORIDE 20 MEQ TAB.ER.PRT PO SCH ×2 (09:15→16:46)
[2020-04-18] MEDS: DAPTOMYCIN 550 MG in SODIUM CHLORIDE 0.9% 100 ML IVPB SCH (09:51)
[2020-04-18 13:02] VITALS: BP 148/77
[2020-04-18] MEDS: CHOLECALCIFEROL 400 UNITS TABLET PO SCH (16:46)
[2020-04-18 19:20] VITALS: BP 153/80
[2020-04-18] MEDS: MELATONIN 5 MG TABLET PO SCH (21:00)
[2020-04-19 00:35] VITALS: BP 141/84
[2020-04-19] MEDS: HYDROcodone/APAP 5/325 TABLET PO PRN ×4 (06:28→22:17)
[2020-04-19 06:38] LABS: BASOPHILS # (AUTO) 0.07 x10^3/uL (0-0.1); BASOPHILS % (AUTO) 1 % (0-1); EOSINOPHILS # (AUTO) 0.53 x10^3/uL (0-0.4); EOSINOPHILS % (AUTO) 6 % (1-7); LYMPHOCYTES # (AUTO) 1.47 x10^3/uL (1-3.4); LYMPHOCYTES % (AUTO) 17 % (22-44); MD NO; MEAN CORPUSCULAR HEMOGLOBIN 24.9 pg (27.5-34.5); MEAN CORPUSCULAR HGB CONC 31.6 g/dL (33.2-36.2); MEAN CORPUSCULAR VOLUME 78.7 fL (81-97); MEAN PLATELET VOLUME 6.4 fL (7.4-10.4); MONOCYTES # (AUTO) 0.52 x10^3/uL (0.2-0.8); MONOCYTES % (AUTO) 6 % (2-9); NEUTROPHILS # (AUTO) 6.12 x10^3/uL (1.8-6.8); NEUTROPHILS % (AUTO) 70 % (42-75); PLATELET COUNT 520 x10^3/uL (130-400); RED BLOOD COUNT 2.92 x10^6/uL (4.38-5.82); RED CELL DISTRIBUTION WIDTH 19.5 % (9.4-14.8)
[2020-04-19 06:48] LABS: ALBUMIN 2.1 g/dL (3.4-5.0); ANION GAP 5 mmol/L (5-15); CALCIUM 8.3 mg/dL (8.5-10.1); CHLORIDE 109 mmol/L (98-107)
[2020-04-19 06:57] LABS: ALANINE AMINOTRANSFERASE 8 U/L (12-78); ALKALINE PHOSPHATASE 132 U/L (45-117); BILIRUBIN,TOTAL 0.4 mg/dL (0.2-1.0); CREATINE KINASE, TOTAL 157 U/L (39-308); CREATININE 0.59 mg/dL (0.7-1.3); TOTAL PROTEIN 5.9 g/dL (6.4-8.2)
[2020-04-19 07:36] VITALS: BP 148/85
[2020-04-19] MEDS: MULTIVITS,STRESS FORMULA 1 TABLET PO SCH (09:00)
[2020-04-19] MEDS: POLYETHYLENE GLYCOL 17 GM PACKET NG SCH (09:00)
[2020-04-19] MEDS: DAPTOMYCIN 550 MG in SODIUM CHLORIDE 0.9% 100 ML IVPB SCH (09:15)
[2020-04-19] MEDS: APIXABAN 5 MG TABLET PO SCH ×2 (09:16→22:05)
[2020-04-19] MEDS: OMEPRAZOLE 20 MG CAPSULE.DR PO SCH (09:16)
[2020-04-19] MEDS: POTASSIUM CHLORIDE 20 MEQ TAB.ER.PRT PO SCH ×2 (09:16→16:54)
[2020-04-19] MEDS: SENNA/DOCUSATE TABLET PO SCH ×2 (09:16→21:00)
[2020-04-19] MEDS: ASCORBIC ACID 500 MG TABLET PO SCH ×2 (09:16→16:54)
[2020-04-19] MEDS: ZINC SULFATE 220 MG CAPSULE PO SCH (09:16)
[2020-04-19 13:53] VITALS: BP 149/91
[2020-04-19] MEDS: CHOLECALCIFEROL 400 UNITS TABLET PO SCH (16:54)
[2020-04-19 18:19] LABS: BASOPHILS # (AUTO) 0.02 x10^3/uL (0-0.1); BASOPHILS % (AUTO) 0 % (0-1); EOSINOPHILS # (AUTO) 0.48 x10^3/uL (0-0.4); EOSINOPHILS % (AUTO) 5 % (1-7); LYMPHOCYTES # (AUTO) 1.71 x10^3/uL (1-3.4); LYMPHOCYTES % (AUTO) 17 % (22-44); MD NO; MEAN CORPUSCULAR HEMOGLOBIN 24.9 pg (27.5-34.5); MEAN PLATELET VOLUME 6.6 fL (7.4-10.4); MONOCYTES # (AUTO) 0.42 x10^3/uL (0.2-0.8); MONOCYTES % (AUTO) 4 % (2-9); NEUTROPHILS # (AUTO) 7.63 x10^3/uL (1.8-6.8); NEUTROPHILS % (AUTO) 74 % (42-75); PLATELET COUNT 569 x10^3/uL (130-400); RED BLOOD COUNT 3.03 x10^6/uL (4.38-5.82); RED CELL DISTRIBUTION WIDTH 19.6 % (9.4-14.8)
[2020-04-19 20:07] VITALS: BP 135/86
[2020-04-19 20:59] LABS: OCCULT BLOOD POSITIVE (NEGATIVE)
[2020-04-19] MEDS: MELATONIN 5 MG TABLET PO SCH (21:00)
[2020-04-20] VITALS (8 sets, daily range): BP systolic 142–180; BP diastolic 61–94
[2020-04-20] MEDS: HYDROcodone/APAP 5/325 TABLET PO PRN ×4 (03:31→18:18)
[2020-04-20 04:59] LABS: MEAN CORPUSCULAR HEMOGLOBIN 24.5 pg (27.5-34.5); MEAN CORPUSCULAR HGB CONC 31.1 g/dL (33.2-36.2); MEAN CORPUSCULAR VOLUME 78.7 fL (81-97); MEAN PLATELET VOLUME 6.6 fL (7.4-10.4); PLATELET COUNT 603 x10^3/uL (130-400); RED BLOOD COUNT 2.91 x10^6/uL (4.38-5.82); RED CELL DISTRIBUTION WIDTH 19.7 % (9.4-14.8)
[2020-04-20 05:51] LABS: BASOPHILS # (AUTO) 0.07 x10^3/uL (0-0.1); BASOPHILS % (AUTO) 1 % (0-1); EOSINOPHILS # (AUTO) 0.53 x10^3/uL (0-0.4); EOSINOPHILS % (AUTO) 6 % (1-7); LYMPHOCYTES # (AUTO) 1.67 x10^3/uL (1-3.4); LYMPHOCYTES % (AUTO) 18 % (22-44); MD SCAN; MONOCYTES # (AUTO) 0.59 x10^3/uL (0.2-0.8); MONOCYTES % (AUTO) 6 % (2-9); NEUTROPHILS # (AUTO) 6.23 x10^3/uL (1.8-6.8); NEUTROPHILS % (AUTO) 69 % (42-75)
[2020-04-20 06:01] LABS: % IRON SATURATION 13 % (20-55); IRON LEVEL 23 mcg/dL (65-175); TOTAL IRON BINDING CAPACITY 177 mcg/dL (250-450)
[2020-04-20] MEDS: SENNA/DOCUSATE TABLET PO SCH ×2 (07:09→19:57)
[2020-04-20] MEDS: ZINC SULFATE 220 MG CAPSULE PO SCH (07:09)
[2020-04-20] MEDS: POTASSIUM CHLORIDE 20 MEQ TAB.ER.PRT PO SCH ×2 (07:09→16:47)
[2020-04-20] MEDS: OMEPRAZOLE 20 MG CAPSULE.DR PO SCH (07:09)
[2020-04-20] MEDS: MULTIVITS,STRESS FORMULA 1 TABLET PO SCH (07:10)
[2020-04-20] MEDS: ASCORBIC ACID 500 MG TABLET PO SCH ×2 (07:10→16:47)
[2020-04-20] MEDS: APIXABAN 5 MG TABLET PO SCH (07:10)
[2020-04-20] MEDS ORDERED: FERROUS SULFATE 325 MG TABLET PO SCH (08:00)
[2020-04-20] MEDS: DAPTOMYCIN 550 MG in SODIUM CHLORIDE 0.9% 100 ML IVPB SCH (09:08)
[2020-04-20] MEDS: IRON SUCROSE COMPLEX 100MG/5ML IV SCH (10:46)
[2020-04-20 11:45] LABS: OCCULT BLOOD POSITIVE (NEGATIVE)
[2020-04-20] MEDS: PANTOPRAZOLE 40 MG IV IVPush SCH (12:17)
[2020-04-20] MEDS: CHOLECALCIFEROL 400 UNITS TABLET PO SCH (16:47)
[2020-04-20] MEDS: MELATONIN 5 MG TABLET PO SCH (19:56)
[2020-04-20 20:02] LABS: INTERNATIONAL NORMALIZED RATIO 1.09 (0.93-1.1); PROTHROMBIN TIME 11.2 Seconds (9.6-11.5)
[2020-04-21] MEDS: HYDROcodone/APAP 5/325 TABLET PO PRN ×4 (01:23→17:56)
[2020-04-21 01:24] VITALS: BP 158/92
[2020-04-21] MEDS: PANTOPRAZOLE 40 MG IV IVPush SCH ×2 (01:43→14:10)
[2020-04-21 08:25] VITALS: BP 158/92
[2020-04-21] MEDS: POTASSIUM CHLORIDE 20 MEQ TAB.ER.PRT PO SCH ×2 (08:40→17:47)
[2020-04-21] MEDS: SENNA/DOCUSATE TABLET PO SCH ×2 (08:40→20:40)
[2020-04-21] MEDS: IRON SUCROSE COMPLEX 100MG/5ML IV SCH (08:41)
[2020-04-21] MEDS: MULTIVITS,STRESS FORMULA 1 TABLET PO SCH (08:41)
[2020-04-21] MEDS: ASCORBIC ACID 500 MG TABLET PO SCH ×2 (08:41→17:47)
[2020-04-21] MEDS: ZINC SULFATE 220 MG CAPSULE PO SCH (08:41)
[2020-04-21] MEDS: DAPTOMYCIN 550 MG in SODIUM CHLORIDE 0.9% 100 ML IVPB SCH (10:20)
[2020-04-21] MEDS ORDERED: GOLYTELY 4,000ML ORAL.SOL PO ONE ×2 (11:00→18:00)
[2020-04-21 12:59] VITALS: BP 168/77
[2020-04-21] MEDS: CHOLECALCIFEROL 400 UNITS TABLET PO SCH (17:47)
[2020-04-21] MEDS ORDERED: CATHFLO-ALTEPLASE 2 MG/2 ML CATHFLUSH ONE (19:30)
[2020-04-21 19:51] VITALS: BP 147/87
[2020-04-21] MEDS: MELATONIN 5 MG TABLET PO SCH ×2 (20:40→20:42)
[2020-04-22] MEDS: PANTOPRAZOLE 40 MG IV IVPush SCH ×2 (02:05→14:14)
[2020-04-22] MEDS: HYDROcodone/APAP 5/325 TABLET PO PRN ×4 (02:52→21:26)
[2020-04-22 03:00] VITALS: BP 157/87
[2020-04-22] MEDS ORDERED: GOLYTELY 4,000ML ORAL.SOL PO ONE ×2 (04:00→12:30)
[2020-04-22] MEDS: POTASSIUM CHLORIDE 20 MEQ TAB.ER.PRT PO SCH ×2 (08:00→17:01)
[2020-04-22] MEDS ORDERED: CHLORHEXIDINE 15 ML UDC MM ONE (08:30)
[2020-04-22] MEDS ORDERED: PROPOFOL 10 MG/ML, 20ML ONE (08:44)
[2020-04-22] MEDS ORDERED: PROPOFOL 50 ML ONE (08:54)
[2020-04-22] MEDS ORDERED: LABETALOL 5MG/ML, 20ML IV PRN (09:30)
[2020-04-22] MEDS ORDERED: OXYcodone 5 MG/5 ML ORAL.SOL UDC PO PRN (09:30)
[2020-04-22] MEDS ORDERED: ALBUTEROL SULFATE 2.5 MG/3 ML NPPB PRN (09:30)
[2020-04-22] MEDS ORDERED: HYDROmorphone 1 MG/ML, 1ML INJ IVPush PRN (09:30)
[2020-04-22] MEDS ORDERED: MEPERIDINE/PF 25MG/0.5ML IVPush PRN (09:30)
[2020-04-22] MEDS ORDERED: hydrALAzine 20 MG/ML, 1ML IV PRN (09:30)
[2020-04-22] MEDS ORDERED: ONDANSETRON 2MG/ML, 2ML IVPush PRN (09:30)
[2020-04-22] MEDS ORDERED: DIAZEPAM 5 MG/ML, 2ML IVPush PRN (09:30)
[2020-04-22] MEDS ORDERED: DIPHENHYDRAMINE 50 MG/ML, 1ML IVPush PRN (09:30)
[2020-04-22] MEDS ORDERED: MIDAZOLAM 1 MG/ML, 2ML IV PRN (09:30)
[2020-04-22] MEDS ORDERED: PROMETHAZINE 12.5 MG SUPP PR PRN (09:30)
[2020-04-22] MEDS ORDERED: EPHEDRINE 50 MG/ML, 1ML IVPush PRN (09:30)
[2020-04-22] MEDS ORDERED: FENTANYL PF 100 MCG/2ML IV PRN (09:30)
[2020-04-22] MEDS ORDERED: PROMETHAZINE 25 MG/ML, 1ML IVPush PRN (09:30)
[2020-04-22] MEDS: ZINC SULFATE 220 MG CAPSULE PO SCH ×2 (10:48→10:52)
[2020-04-22] MEDS: MULTIVITS,STRESS FORMULA 1 TABLET PO SCH ×2 (10:48→10:52)
[2020-04-22] MEDS: ASCORBIC ACID 500 MG TABLET PO SCH ×2 (10:48→17:02)
[2020-04-22] MEDS: IRON SUCROSE COMPLEX 100MG/5ML IV SCH (10:49)
[2020-04-22] MEDS: SENNA/DOCUSATE TABLET PO SCH ×3 (10:49→21:26)
[2020-04-22] MEDS: HYDROCHLOROTHIAZIDE 25 MG TABLET PO SCH (10:50)
[2020-04-22] MEDS: DAPTOMYCIN 550 MG in SODIUM CHLORIDE 0.9% 100 ML IVPB SCH (14:14)
[2020-04-22 15:40] VITALS: BP_SYST 115; BP_SYST 149; BP_DIAS 74; BP_DIAS 94
[2020-04-22] MEDS: CHOLECALCIFEROL 400 UNITS TABLET PO SCH (17:01)
[2020-04-22 19:05] VITALS: BP 148/88
[2020-04-22] MEDS: MELATONIN 5 MG TABLET PO SCH (21:26)
[2020-04-23 01:01] VITALS: BP 155/84
[2020-04-23] MEDS: PANTOPRAZOLE 40 MG IV IVPush SCH ×2 (01:05→14:22)
[2020-04-23 09:02] VITALS: BP 151/97
[2020-04-23] MEDS: HYDROcodone/APAP 5/325 TABLET PO PRN ×2 (10:28→16:18)
[2020-04-23] MEDS: MULTIVITS,STRESS FORMULA 1 TABLET PO SCH (10:31)
[2020-04-23] MEDS: POTASSIUM CHLORIDE 20 MEQ TAB.ER.PRT PO SCH ×2 (10:31→16:18)
[2020-04-23] MEDS: ASCORBIC ACID 500 MG TABLET PO SCH ×2 (10:31→16:18)
[2020-04-23] MEDS: ZINC SULFATE 220 MG CAPSULE PO SCH (10:31)
[2020-04-23] MEDS: HYDROCHLOROTHIAZIDE 25 MG TABLET PO SCH (10:31)
[2020-04-23] MEDS: SENNA/DOCUSATE TABLET PO SCH (10:32)
[2020-04-23] MEDS: IRON SUCROSE COMPLEX 100MG/5ML IV SCH (10:32)
[2020-04-23] MEDS ORDERED: OMEP-110 PO (14:15)
[2020-04-23] MEDS ORDERED: HYDR25TA6 PO (14:15)
[2020-04-23] MEDS ORDERED: SENN-193 PO (14:15)
[2020-04-23] MEDS ORDERED: FERR-51 PO (14:16)
[2020-04-23] MEDS ORDERED: APIX5TAB PO (14:45)
[2020-04-23 14:46] VITALS: BP 150/91
[2020-04-23] MEDS ORDERED: DAPT500V6 INJ (14:46)
[2020-04-23] MEDS: DAPTOMYCIN 550 MG in SODIUM CHLORIDE 0.9% 100 ML IVPB SCH (15:23)
[2020-04-23] MEDS: CHOLECALCIFEROL 400 UNITS TABLET PO SCH (16:43)
== END 2020-04-23 19:45 | disposition home or self-care (01) | DRG 853 ==
LOC: ED 11:37 → EDIP 12:03 → 4NE 13:14
PROVIDERS: ADMIT Hospitalist; ATTEND Internal Medicine
PROC: 0JBL0ZZ Excision of Right Upper Leg Subcutaneous Tissue and Fascia, Open Approach (ICD-10-PCS; principal; 2020-03-25 14:30)
PROC: 0QB60ZZ Excision of Right Upper Femur, Open Approach (ICD-10-PCS; 2020-03-29)
PROC: 3E0102A Introduction of Anti-Infective Envelope into Subcutaneous Tissue, Open Approach (ICD-10-PCS; 2020-03-29)
PROC: 30233N1 Transfusion of Nonautologous Red Blood Cells into Peripheral Vein, Percutaneous Approach (ICD-10-PCS; 2020-03-30)
PROC: 0JBL0ZZ Excision of Right Upper Leg Subcutaneous Tissue and Fascia, Open Approach (ICD-10-PCS; 2020-04-16)
PROC: 0SSC0ZZ Reposition Right Knee Joint, Open Approach (ICD-10-PCS; 2020-04-16)
PROC: 0D758ZZ Dilation of Esophagus, Via Natural or Artificial Opening Endoscopic (ICD-10-PCS; 2020-04-22)
DX: A41.9 Sepsis, unspecified organism (principal); S72.91XA Unspecified fracture of right femur, initial encounter for closed fracture; J18.9 Pneumonia, unspecified organism; E44.0 Moderate protein-calorie malnutrition; J44.0 Chronic obstructive pulmonary disease with (acute) lower respiratory infection; L02.415 Cutaneous abscess of right lower limb; L03.115 Cellulitis of right lower limb; M86.9 Osteomyelitis, unspecified; N17.9 Acute kidney failure, unspecified; D63.8 Anemia in other chronic diseases classified elsewhere; E11.69 Type 2 diabetes mellitus with other specified complication; R13.14 Dysphagia, pharyngoesophageal phase; E78.5 Hyperlipidemia, unspecified; Z20.828 Contact with and (suspected) exposure to other viral communicable diseases; E87.6 Hypokalemia; F17.200 Nicotine dependence, unspecified, uncomplicated; G47.00 Insomnia, unspecified; I10 Essential (primary) hypertension; I48.91 Unspecified atrial fibrillation; K20.0 Eosinophilic esophagitis; K21.9 Gastro-esophageal reflux disease without esophagitis; K22.2 Esophageal obstruction; K22.70 Barrett's esophagus without dysplasia; K27.9 Peptic ulcer, site unspecified, unspecified as acute or chronic, without hemorrhage or perforation; K44.9 Diaphragmatic hernia without obstruction or gangrene; K59.00 Constipation, unspecified; Z79.01 Long term (current) use of anticoagulants; Z82.49 Family history of ischemic heart disease and other diseases of the circulatory system; Z68.25 Body mass index [BMI] 25.0-25.9, adult; Z83.3 Family history of diabetes mellitus; Z86.718 Personal history of other venous thrombosis and embolism; Z03.818 Encounter for observation for suspected exposure to other biological agents ruled out
CPT/HCPCS: 36415; 73552; 74220; 76000; 96374; 99285; J3260; J3490; 80048; 80053; 80202; 82272; 82550; 82565; 82728; 82962; 83540; 83550; 83605; 83735; 84100; 84132; 85014; 85018; 85025; 85610; 85651; 86140; 86850; 86900; 86923; 87040; 87070; 87075; 87077; 87102; 87116; 87176; 87186; 87205; 87206; 87635; 88304; 88311; C1713; G0378; J0690; J0878; J1100; J1170; J1335; J1756; J1885; J2175; J2250; J2405; J2704; J2710; J2997; J3010; J3370; A9575; C9113; J0330; J2270; J7040; J7050; P9016